=== PATIENT | female | born 2000 | race Caucasian/White ===

== ENCOUNTER 2022-03-27 07:00 | Emergency (ER) | payer MEDICAID, SELFPAY ==
--- NOTE | ~2022-03-27 | CT_ITS ---
EXAMINATION: CT abdomen pelvis wo con DATE: 03/27/2022 08:16 INDICATION: Right flank pain. Microhematuria. TECHNIQUE: Computed tomography (CT) of the abdomen and pelvis was performed without intravenous contr ast. Automated exposure control and iterative reconstruction technique were employed. The dose-length product was 179.64 mGy-cm. COMPARISON: CT abdomen and pelvis 03/03/2019 FINDINGS: The visualized portions of the lung bases are clear without pneumonia or pleural effusion. The heart size is normal. No pericardial effusion. The liver, gallbladder, spleen, pancreas, adrenal glands, and left kidney are normal. There is a 1 mm stone in right kidney. There is proximal right hy droureter. There is a 4 mm stone in right ureter where it crosses the iliac vessels. There are no dil ated loops of bowel. The appendix is normal. There are no pathologically enlarged lymph nodes. There is physiologic fluid in the pelvis. There is a 4.6 x 2.5 cm cyst in right adnexa, likely a follicular cyst. The bones are unremarkable. IMPRESSION: 1. 4 mm stone in mid right ureter with proximal right hydroureter. 2. 1 mm nonobstructing right kidney stone. 3. 4.6 cm cyst in right adnexa, likely a follicular cyst. Reviewed, dictated and finalized at location A.
[2022-03-27 07:00] VITALS: BP 130/79; PULSE 72; RESP 16; TEMP 36.3; O2SAT 99
--- NOTE | 2022-03-27 07:04 | ED.ABDPAIN ---
HPI - Abdominal Pain General Chief Complaint: Abdominal Pain Stated Complaint: ambulance Time Seen by Provider: 03/27/22 07:04 Source: patient Mode of arrival: ambulatory Limitations: no limitations History of Present Illness HPI narrative: 21-year-old female, A2, history of right kidney stone 2 years ago presents to the ER with a 5 hour history of -- right flank pain which radiates to the right groin. -- Nausea without any vomiting. No fever or chills. MD elicited complaint: flank pain Pertinent past history: kidney stones Onset (ago): hour(s) ( Started 5 hours ago) Pain Consistency: intermittent Location: R flank Severity: severe Pain scale (0-10): 6 Radiation: suprapubic Exacerbating factors: nothing Relieving factors: nothing Associated symptoms: denies other symptoms Related Data Date of Last Menstrual Period: 02/28/22 Patient : No Allergies Allergy/AdvReac Type Severity Reaction Status Date / Time No Known Allergies Allergy Unverified 04/10/19 13:26 Review of Systems Review of Systems: All systems reviewed & are unremarkable except as noted in HPI and below Constitutional: Constitutional: Reports as per HPI and Reports no additional constitutional complaints Eyes: Eyes: Reports as per HPI and Reports no additional eye complaints ENT: Reports system reviewed and no additional complaints, except as documented and Reports as per HPI Cardiovascular: Cardiovascular: Reports as per HPI and Reports no additional cardiovascular complaints Respiratory: Respiratory: Reports as per HPI and Reports no additional respiratory complaints Gastrointestinal: Gastrointestinal: Reports as per HPI, Reports no additional gastrointestinal complaints, Reports abdominal pain and Reports nausea Genitourinary: Genitourinary: Reports no additional female genitourinary complaints and Reports as per HPI Musculoskeletal: Musculoskeletal: Reports no additional musculoskeletal complaints and Reports as per HPI Integumentary/Breasts: Skin/Breast: Reports system reviewed and no additional complaints, except as docu and Reports as per HPI Neurologic: Reports system reviewed and no additional complaints, except as documented and Reports as per HPI Psychiatric: Psychiatric: Reports no additional psychiatric complaints and Reports as per HPI Endocrine: Endocrine: Reports no additional endocrine complaints and Reports as per HPI Hematologic/Lymphatic: Hematologic/Lymphatic: Reports no additional hematologic/lymphatic complaints and Reports as per HPI Allergic/Immunologic: Allergic/Immunologic: Reports no additional allergic/immunologic complaints and Reports as per HPI ON LICENSE OF [facility] Past Medical History Medical History (Updated 03/27/22 @ 09:21 by Rolando Parra MD) Kidney stone Miscarriage Exam Const: General: healthy appearing Nutritional Appearance: well nourished Orientation/consciousness: patient oriented x3 Limitations: no limitations HENMT: Head: normal to inspection Ears: external ears normal General nose exam: Normal external nose present Face and sinus: normal facial exam Mouth: Yes Normal oral and palatal mucosa present Teeth and gingiva: dentition normal Throat: posterior oropharynx normal Eyes: Conjunctivae: conjunctivae normal Pupils: Equal, round and reactive pupils present EOM: EOMs intact bilaterally Neck: Neck: normal visual inspection Chest: Chest palpation & inspection: normal inspection of the chest Resp: Effort & Inspection: normal respiratory effort Auscultation: clear to auscultation bilaterally Cardio: Rate: regular rate Rhythm: regular rhythm GI: GI Palp: Yes Soft to palpation and Yes Tenderness to palpation present (GI) ( tenderness in right flank without any rigidity/rebound) Auscultation: normal bowel sounds Rectal Exam: normal sphincter tone : General: Yes bladder normal to palpation Back/Spine/Pelvis: Back: CVA tenderness Skin: General skin exam: normal color Rash
[2022-03-27 07:32] LABS: Basophils Absolute Auto 0.05 K/mm3 (0.00-0.10); Basophils Percent Auto 0.4 % (0.0-1.0); Eosinophils Absolute Auto 0.07 K/mm3 (0.02-0.50); Eosinophils Percent Auto 0.6 % (1.0-6.0); Hematocrit 44.2 % (35.0-49.0); Hemoglobin 15.2 g/dL (12.0-15.0); Immature Granulocyte Absolute 0.03 K/mm3 (0.00-0.00); Immature Granulocyte Percent A 0.3 % (0.0-0.0); Lymphocytes Absolute Auto 2.06 K/mm3 (1.10-4.50); Lymphocytes Percent Auto 17.9 % (18.0-42.0); Mean Corpuscular HGB Conc 34.4 g/dL (32.0-36.0); Mean Corpuscular Volume 87.4 fL (78.0-102.0); Mean Platelet Volume 10.8 fl (9.2-11.8); Monocytes Absolute Auto 0.79 K/mm3 (0.10-0.90); Monocytes Percent Auto 6.9 % (2.0-11.0); Neutrophils Absolute Auto 8.5 K/mm3 (1.7-7.2); Neutrophils Percent Auto 73.9 % (50.0-70.0); Platelet Count Result 238 K/mm3 (150-420); Red Blood Count 5.06 M/mm3 (4.20-5.40); Red Cell Distribution Width 11.7 % (11.6-14.4); White Blood Count 11.5 K/mm3 (4.8-10.8)
[2022-03-27 07:33] LABS: Add Urine Microscopic? YES; Appearance Urine Slightly Cloudy (Clear); Bilirubin Urine Negative (Negative); Blood Urine 3+ (Negative); Color Urine Yellow (Yellow); Glucose Urine UA Negative (Negative); Ketones Urine 1+ (Negative); Leukocyte Esterase Ur Negative (Negative); Nitrate Urine Negative (Negative); Protein Urine Negative (Negative); Specific Grav Ur >= 1.030 (1.010-1.020); Urobilinogen Urine 0.2 mg/dL (0.2-1.0)
[2022-03-27] MEDS: LACTATED RINGERS 1,000 ML 999 ML IV CONT (07:34)
[2022-03-27 07:37] LABS: Bacteria Urine Trace /hpf; RBC Urine >75 /hpf (0-2); Squamous Epithelial Cell Urine Few /hpf (Few); WBC Urine None seen /hpf (0-3)
[2022-03-27 07:38] LABS: Pregnancy On Board Control Positive; Urine Pregnancy Test Negative
[2022-03-27 07:45] LABS: Prothrombin Time 10.6 Seconds (9.50-12.10)
[2022-03-27 07:48] LABS: Alanine Aminotransferase 23 U/L (14-59); Alkaline Phosphatase 91 U/L (46-116); Anion Gap 12 mmol/L (8-16); Aspartate Amino Transferase 16 U/L (15-37); Bilirubin,Total 0.6 mg/dL (0.00-1.00); Blood Urea Nitrogen 14 mg/dL (7-18); Calcium 8.9 mg/dL (8.5-10.1); Carbon Dioxide 21 mmol/L (21-32); Chloride 104 mmol/L (98-108); Estimated CRCL calculation 89 ml/min; Estimated Glomerular Filt Rate > 60; Glucose 104 mg/dL (70-99); Lipase 48 U/L (73-393); Osmolality Calculated 284 mOsm/kg (285-295); Sodium 137 mmol/L (136-145); Total Protein 7.6 g/dL (6.4-8.2); Uric Acid 4.9 mg/dL (2.6-6.0)
[2022-03-27 07:53] LABS: Lactic Acid Reflex 0.7 mmol/L (0.4-2.0)
--- NOTE | 2022-03-27 08:08 | PC.NURSE ---
PT IS TALKING ON CELL PHONE WITHOUT DISTRESS, IS ON HER WAY TO CT AT THIS TIME. IVF INFUSING ORDERED WITHOUT DIFFICULTY. WILL CONTINUE TO MONITOR.
--- NOTE | 2022-03-27 08:30 | PC.NURSE ---
PT HAS RETURNED FROM CT, DENIES ANY NEEDS OR COMPLAINTS AT THIS TIME. WILL CONTINUE TO MONITOR.
[2022-03-27 08:36] VITALS: BP 107/56; PULSE 70; RESP 16; O2SAT 98
--- NOTE | 2022-03-27 09:03 | PC.NURSE ---
PT UP TO RR WITHOUT DIFFICULTY, REPORTS PAIN IS COMING BACK. WILL CONTINUE TO MONITOR.
[2022-03-27] MEDS: TAMSULOSIN HCL 0.4 MG CAPSULE PO (09:20)
[2022-03-27] MEDS: ONDANSETRON INJ 4 MG/2 ML VIAL IV PUSH (09:20)
[2022-03-27] MEDS: MORPHINE SULFATE (*CRX) 2 MG/ML INJ IV PUSH (09:21)
[2022-03-27 09:40] VITALS: BP 108/62; PULSE 68; RESP 16; O2SAT 99
== END 2022-03-27 09:40 | disposition home or self-care (01) ==
PROVIDERS: Emergency Provider Internal Medicine Critical Care Medicine
DX: N20.0 Calculus of kidney (principal)
CPT/HCPCS: 36415; 74176; 80053; 81001; 81025; 83605; 83690; 84550; 85025; 85610; 96361; 96374; 96375; 99284; A9270; J2270; J2405; J7120

== ENCOUNTER 2022-04-04 09:19 | Emergency (ER) | payer MEDICAID, SELFPAY ==
--- NOTE | ~2022-04-04 | XR_ITS ---
EXAMINATION: XR abdomen/kub 1V DATE: 04/04/2022 10:35 INDICATION: Right flank pain. TECHNIQUE: A supine view of the abdomen was obtained. COMPARISON: CT abdomen and pelvis 04/04/2022 FINDINGS: There are no dilated loops of bowel. There is a 3 mm stone in distal right ureter. IMPRESSION: 1. 3 mm stone in distal right ureter. Reviewed, dictated and finalized at location A.
--- NOTE | ~2022-04-04 | CT_ITS ---
EXAMINATION: CT abdomen pelvis w con DATE: 04/04/2022 10:36 INDICATION: Right flank pain. TECHNIQUE: Computed tomography (CT) of the abdomen and pelvis was performed with 100 mL Omnipaque 350 intravenous contrast. Automated exposure control and iterative reconstruction technique were employe d. The dose-length product was 368.24 mGy-cm. COMPARISON: CT abdomen and pelvis 03/27/2022 FINDINGS: The visualized portions of the lung bases are clear without pneumonia or pleural effusion. The heart size is normal. No pericardial effusion. The liver, gallbladder, spleen, pancreas, adrenal glands, and left kidney are normal. There is a delayed right-sided contrast nephrogram. There is a 1 mm stone in right kidney. There is mild right hydronephrosis and hydroureter to the level of a 3 mm s tone in distal right ureter. There is a 4.8 cm cyst in right adnexa, likely a follicular cyst. There are no dilated loops of bowel. The appendix is normal. There are no pathologically enlarged lymph nod es. There is no free intraperitoneal fluid. The bones are unremarkable. IMPRESSION: 1. 3 mm stone in distal right ureter with mild right hydronephrosis and hydroureter. 2. 1 mm nonobstructing right kidney stone. 3. 4.8 cm cyst in right adnexa, likely a follicular cyst. Reviewed, dictated and finalized at location A. IMPRESSION: 1. 3 mm stone in distal right ureter with mild right hydronephrosis and hydrour eter. 2. 1 mm nonobstructing right kidney stone. 3. 4.8 cm cyst in right adnexa, likely a follicular cyst.
[2022-04-04 09:25] VITALS: BP 132/84; PULSE 56; RESP 16; TEMP 36.7; O2SAT 98
--- NOTE | 2022-04-04 09:37 | ED.ABDPAIN ---
HPI - Abdominal Pain General Chief Complaint: Abdominal Pain Stated Complaint: flank pain, abdominal pain History of Present Illness HPI narrative: Pt presents with right flank and RLQ abdominal pain for about 9 hours. Pt diagnosed recently with kidney stone but had improved. Pt has not followed up with urology. Pt denies fever. Pt does have some urinary frequency. Pt denies vomiting or fever. Related Data Allergies Allergy/AdvReac Type Severity Reaction Status Date / Time No Known Allergies Allergy Verified 04/04/22 09:33 Review of Systems Review of Systems: All systems reviewed & are unremarkable except as noted in HPI and below PMFSH Past Medical History Medical History (Updated 04/04/22 @ 11:12 by David Pruitt III, ) Kidney stone Miscarriage Exam Const: General: healthy appearing Nutritional Appearance: well nourished Orientation/consciousness: patient oriented x3 Limitations: no limitations HENMT: Head: normal to inspection Mouth: Yes Normal oral and palatal mucosa present Eyes: Conjunctivae: conjunctivae normal EOM: EOMs intact bilaterally Neck: Neck: normal visual inspection Resp: Effort & Inspection: normal respiratory effort Auscultation: clear to auscultation bilaterally Cardio: Rate: regular rate Rhythm: regular rhythm GI: GI Palp: Yes Soft to palpation and Yes Tenderness to palpation present (GI) (right flank and RLQ) Auscultation: normal bowel sounds : General: Yes bladder normal to palpation Back/Spine/Pelvis: Back: CVA tenderness (right) Skin: General skin exam: normal color Rashes: no rashes Wounds: no wounds Neuro: General: patient oriented x3, moves all extremities, no meningeal signs, no focal motor deficits and CN's II-XI intact bilaterally Cranial nerves: Yes Nystagmus not present Speech: normal speech Gait exam (Neuro): Normal gait present Extrem: General: normal to inspection and no clubbing, cyanosis or edema Psych: Mental Status: mental status grossly normal Affect: normal affect Attitude: cooperative Course Vital Signs Vital signs: Vital Signs Temperature 98.0 F 04/04/22 09:25 Pulse Rate 56 L 04/04/22 09:25 Respiratory Rate 16 04/04/22 09:25 Blood Pressure 132/84 04/04/22 09:25 Pulse Oximetry 98 04/04/22 09:25 Oxygen Delivery Room Air 04/04/22 09:25 Temperature 98.0 F 04/04/22 11:40 Pulse Rate 60 04/04/22 11:40 Respiratory Rate 16 04/04/22 11:40 Blood Pressure 122/64 04/04/22 11:40 Pulse Oximetry 99 04/04/22 11:40 Oxygen Delivery Room Air 04/04/22 11:40 MDM - Abdominal Pain Lab Data Result diagrams: 04/04/22 09:48 04/04/22 09:48 Labs: Lab Results 04/04/22 04/04/22 04/04/22 Range/Units 09:48 09:48 09:48 WBC 22.1 H* (4.8-10.8) K/mm3 RBC 5.15 (4.20-5.40) M/mm3 Hgb 15.3 H (12.0-15.0) g/dL Hct 44.6 (35.0-49.0) % MCV 86.6 (78.0-102.0) fL MCH 29.7 (27.0-31.0) pg MCHC 34.3 (32.0-36.0) g/dL RDW 11.6 (11.6-14.4) % Plt Count 264 (150-420) K/mm3 MPV 11.2 (9.2-11.8) fl Immature Gran % (Auto) Not Reportable Neut % (Auto) Not Reportable Lymph % (Auto) Not Reportable [place] % (Auto) Not Reportable Eos % (Auto) Not Reportable Baso % (Auto) Not Reportable Lymph # (Auto) Not Reportable [place] # (Auto) Not Reportable Eos # (Auto) Not Reportable Baso # (Auto) Not Reportable Abs Immat Gran (auto) Not Reportable Absolute Neuts (auto) Not Reportable Absolute Nucleated RBC Not Reportable Total Counted 100 Neutrophils % (Manual) 89 H (46-73) % Band Neutrophils % 0 (0-6) % Lymphocytes % (Manual) 6 L (18-44) % Monocytes % (Manual) 5 (3-9) % Nucleated RBC % Not Reportable Abs Neuts (Manual) 19.66 H (1.7-7.2) K/mm3 Abs Lymphs (Manual) 1.32 (1.1-4.5) K/mm3 Abs Monocytes (Manual) 1.10 H (0.1-0.90) K/mm3 Platelet Estimate Ad
[2022-04-04] MEDS: SODIUM CHLORIDE 0.9% IV 1,000 ML 999 ML IV CONT (09:53)
[2022-04-04] MEDS: KETOROLAC 30 MG/ML VIAL (*BKC) IV PUSH (09:54)
[2022-04-04] MEDS: ONDANSETRON INJ 4 MG/2 ML VIAL IV PUSH (09:54)
[2022-04-04 09:57] LABS: Add Urine Microscopic? YES; Appearance Urine Clear (Clear); Bilirubin Urine Negative (Negative); Blood Urine 3+ (Negative); Color Urine Yellow (Yellow); Glucose Urine UA Negative (Negative); Hematocrit 44.6 % (35.0-49.0); Hemoglobin 15.3 g/dL (12.0-15.0); Ketones Urine Trace (Negative); Leukocyte Esterase Ur Negative LEU/UL (Negative); Mean Corpuscular HGB Conc 34.3 g/dL (32.0-36.0); Mean Corpuscular Hemoglobin 29.7 pg (27.0-31.0); Mean Corpuscular Volume 86.6 fL (78.0-102.0); Mean Platelet Volume 11.2 fl (9.2-11.8); Nitrate Urine Negative (Negative); Platelet Count Result 264 K/mm3 (150-420); Protein Urine 2+ (Negative); Red Blood Count 5.15 M/mm3 (4.20-5.40); Red Cell Distribution Width 11.6 % (11.6-14.4); Urobilinogen Urine 0.2 mg/dL (0.2-1.0); pH Urine 8.5 (5.0-8.0)
[2022-04-04 10:08] LABS: White Blood Count 22.1 K/mm3 (4.8-10.8)
[2022-04-04 10:12] LABS: Alanine Aminotransferase 30 U/L (14-59); Albumin Level 4.2 g/dL (3.4-5.0); Alkaline Phosphatase 94 U/L (46-116); Anion Gap 12 mmol/L (8-16); Aspartate Amino Transferase 19 U/L (15-37); Bilirubin,Total 0.7 mg/dL (0.00-1.00); Blood Urea Nitrogen 16 mg/dL (7-18); Calcium 9.4 mg/dL (8.5-10.1); Carbon Dioxide 23 mmol/L (21-32); Chloride 105 mmol/L (98-108); Estimated CRCL calculation 55 ml/min; Estimated Glomerular Filt Rate 51; Glucose 123 mg/dL (70-99); Osmolality Calculated 292 mOsm/kg (285-295); Potassium 3.9 mmol/L (3.5-5.1); Sodium 140 mmol/L (136-145); Total Protein 7.7 g/dL (6.4-8.2)
[2022-04-04 10:13] LABS: Bacteria Urine 1+ /hpf; RBC Urine 21-50 /hpf (0-2); Squamous Epithelial Cell Urine Few /hpf (Few)
[2022-04-04 10:19] LABS: Band Neutrophils Percent 0 % (0-6); Lymphocytes Absolute Manual 1.32 K/mm3 (1.1-4.5); Lymphocytes Percent Manual 6 % (18-44); Monocytes Percent Manual 5 % (3-9); Neutrophils Absolute Manual 19.66 K/mm3 (1.7-7.2); Neutrophils Percent Manual 89 % (46-73); Platelet Estimate Adequate (Adequate); Total Cells Counted 100
[2022-04-04 10:19] LABS: Pregnancy On Board Control Positive; Urine Pregnancy Test Negative
--- NOTE | 2022-04-04 10:24 | PC.NURSE ---
PT IN CT AT THIS TIME. WILL CONTINUE TO MONITOR.
[2022-04-04 10:40] VITALS: BP 114/66; PULSE 70; RESP 16; O2SAT 100
--- NOTE | 2022-04-04 10:41 | PC.NURSE ---
PT HAS RETURNED FROM CT, REPORTS PAIN HAS GREATLY IMPROVED, DOES REMAIN. PT IS CALM, WARM BLANKET PROVIDED. PT IS WATCHING TV AT THIS TIME. WILL CONTINUE TO MONITOR.
[2022-04-04 10:45] VITALS: BP 125/73; PULSE 66; RESP 16; O2SAT 99
[2022-04-04 11:15] VITALS: BP 121/78; PULSE 62; RESP 16; O2SAT 98
--- NOTE | 2022-04-04 11:15 | PC.NURSE ---
rn contacted urology for consult, will call back in operating room at this time.
[2022-04-04 11:40] VITALS: BP 122/64; PULSE 60; RESP 16; TEMP 36.7; O2SAT 99
--- NOTE | 2022-04-04 11:53 | PC.NURSE ---
1115 PT IS RESTING ON STRETCHER WATCHING TV. ERP NOTIFIED UROLOGY FOR PT FOLLOW UP. PT HAS CALLED FOR TRANSPORT HOME. NAD NOTED. VSS. WILL CONTINUE TO MONITOR.
== END 2022-04-04 11:40 | disposition home or self-care (01) ==
PROVIDERS: Emergency Provider Emergency Medicine
DX: N20.0 Calculus of kidney (principal)
CPT/HCPCS: 36415; 74018; 74177; 80053; 81001; 81025; 85025; 96361; 96374; 96375; 99284; J1885; J2405; J7030; Q9967

== ENCOUNTER 2022-04-07 18:10 | Emergency (ER) | payer MEDICAID, SELFPAY ==
--- NOTE | ~2022-04-07 | CT_ITS ---
EXAMINATION: CT abdomen pelvis w con DATE: 04/07/2022 19:41 INDICATION: Right flank pain. TECHNIQUE: Computed tomography (CT) of the abdomen and pelvis was performed with 100 mL Omnipaque 350 intravenous contrast. Automated exposure control and iterative reconstruction technique were employe d. The dose-length product was 301.88 mGy-cm. COMPARISON: CT abdomen and pelvis 04/04/2022 FINDINGS: The visualized portions of the lung bases are clear without pneumonia or pleural effusion. The heart size is normal. No pericardial effusion. The liver, gallbladder, spleen, pancreas, adrenal glands, and left kidney are normal. There is a delayed right-sided contrast nephrogram. There is mild right hydronephrosis and hydroureter. There is a 3 mm stone in distal right ureter. There is a 4.8 c m cyst in right adnexa. There is physiologic fluid in the pelvis. There are no dilated loops of bowel . The appendix is normal. There are no pathologically enlarged lymph nodes. The bones are unremarkabl e. IMPRESSION: 1. 3 mm stone in distal right ureter with mild right hydronephrosis and hydroureter. 2. 4.8 cm cyst in right adnexa, likely a follicular cyst. Reviewed, dictated and finalized at location A. IMPRESSION: 1. 3 mm stone in distal right ureter with mild right hydronephrosis and hydrour eter. 2. 4.8 cm cyst in right adnexa, likely a follicular cyst.
[2022-04-07 18:15] VITALS: BP 142/88; PULSE 56; RESP 20; TEMP 37; O2SAT 97
--- NOTE | 2022-04-07 18:27 | ED.FEMALEGU ---
HPI - Female Genitourinary General Chief complaint: Urogenital-Female Stated complaint: kidney stones Source: patient Mode of arrival: ambulatory Limitations: no limitations History of Present Illness HPI Narrative: 21 year old female returns to the Emergency Department complaining of severe right flank pain. Patient was here 03/27 and 04/04 for same. She was diagnosed with right ureteral stone 03/27. Has not followed up with Urology. States I can't afford it. elicited complaint: flank pain Onset (ago): week(s) (2) Severity: severe Female Urogenital Radiation: R Flank Severity scale (1-10): >10 Quality of pain: sharp Consistency: constant Vaginal discharge: none Exacerbating factors: none Relieving factors: none Associated symptoms: denies other symptoms Treatment prior to arrival: other (seen in ED twice and given analgesic Rx) Related Data Allergies Allergy/AdvReac Type Severity Reaction Status Date / Time No Known Allergies Allergy Verified 04/04/22 09:33 Review of Systems Review of Systems: All systems reviewed & are unremarkable except as noted in HPI and below Constitutional: Constitutional: Reports as per HPI, Reports no additional constitutional complaints and Denies chills Eyes: Eyes: Reports as per HPI and Reports no additional eye complaints ENT: Reports system reviewed and no additional complaints, except as documented and Reports as per HPI Cardiovascular: Cardiovascular: Reports as per HPI, Reports no additional cardiovascular complaints and Denies chest pain Respiratory: Respiratory: Reports as per HPI, Reports no additional respiratory complaints and Denies dyspnea Gastrointestinal: Gastrointestinal: Reports as per HPI, Reports no additional gastrointestinal complaints, Reports abdominal pain, Reports constipation, Denies diarrhea and Reports nausea Genitourinary: Genitourinary: Reports no additional female genitourinary complaints, Reports as per HPI and Reports flank pain Musculoskeletal: Musculoskeletal: Reports no additional musculoskeletal complaints, Reports as per HPI and Reports back pain Integumentary/Breasts: Skin/Breast: Reports system reviewed and no additional complaints, except as docu and Reports as per HPI Neurologic: Reports system reviewed and no additional complaints, except as documented, Reports as per HPI, Denies dizziness and Denies syncope Psychiatric: Psychiatric: Reports no additional psychiatric complaints and Reports as per HPI Endocrine: Endocrine: Reports no additional endocrine complaints and Reports as per HPI Hematologic/Lymphatic: Hematologic/Lymphatic: Reports no additional hematologic/lymphatic complaints and Reports as per HPI Allergic/Immunologic: Allergic/Immunologic: Reports no additional allergic/immunologic complaints and Reports as per [facility] Past Medical History Medical History Kidney stone Miscarriage Exam Const: General: healthy appearing; No no acute distress (acute distress) Nutritional Appearance: well nourished Orientation/consciousness: patient oriented x3 Limitations: no limitations HENMT: Head: normal to inspection Ears: external ears normal General nose exam: Normal external nose present Face and sinus: normal facial exam Mouth: Yes Normal oral and palatal mucosa present Eyes: Conjunctivae: conjunctivae normal Pupils: Equal, round and reactive pupils present EOM: EOMs intact bilaterally Direct Ophthalmoscopy: no photophobia Neck: Neck: normal visual inspection Chest: Chest palpation & inspection: normal inspection of the chest Resp: Effort & Inspection: normal respiratory effort Auscultation: clear to auscultation bilaterally Cardio: Rate: regular rate Rhythm: regular rhythm Heart sounds: Murmur heart sound present GI: Inspection: non-distended GI Palp: Yes Soft to palpation, Yes Tenderness to palpation present (GI), No Guarding due to palpation present (GI) a
[2022-04-07] MEDS: SODIUM CHLORIDE 0.9% IV 1,000 ML 999 ML IV CONT (18:44)
[2022-04-07] MEDS: ONDANSETRON INJ 4 MG/2 ML VIAL IV PUSH (18:45)
[2022-04-07] MEDS: fentaNYL CITRATE INJ (*CRX) 100 MCG/2 ML VIAL 50 MCG IV PUSH ×2 (18:47→19:44)
[2022-04-07 19:00] LABS: Basophils Absolute Auto 0.06 K/mm3 (0.00-0.10); Basophils Percent Auto 0.3 % (0.0-1.0); Eosinophils Absolute Auto 0.03 K/mm3 (0.02-0.50); Eosinophils Percent Auto 0.2 % (1.0-6.0); Hematocrit 42.9 % (35.0-49.0); Hemoglobin 14.6 g/dL (12.0-15.0); Immature Granulocyte Absolute 0.07 K/mm3 (0.00-0.00); Immature Granulocyte Percent A 0.4 % (0.0-0.0); Lymphocytes Absolute Auto 1.17 K/mm3 (1.10-4.50); Lymphocytes Percent Auto 6.2 % (18.0-42.0); Mean Corpuscular Volume 88.3 fL (78.0-102.0); Mean Platelet Volume 11.2 fl (9.2-11.8); Monocytes Absolute Auto 1.21 K/mm3 (0.10-0.90); Monocytes Percent Auto 6.4 % (2.0-11.0); Neutrophils Absolute Auto 16.2 K/mm3 (1.7-7.2); Neutrophils Percent Auto 86.5 % (50.0-70.0); Platelet Count Result 226 K/mm3 (150-420); Red Blood Count 4.86 M/mm3 (4.20-5.40); Red Cell Distribution Width 11.4 % (11.6-14.4); White Blood Count 18.8 K/mm3 (4.8-10.8)
--- NOTE | 2022-04-07 19:00 | PC.NURSE ---
report to CHARAN villareal, no questions or concerns at this time.
[2022-04-07 19:03] LABS: Appearance Urine Clear (Clear); Bilirubin Urine Negative (Negative); Color Urine Light Yellow (Yellow); Glucose Urine UA Negative (Negative); Ketones Urine Negative (Negative); Leukocyte Esterase Ur Negative LEU/UL (Negative); Nitrate Urine Negative (Negative); Protein Urine Negative (Negative); Specific Grav Ur 1.025 (1.010-1.020); Urobilinogen Urine 0.2 mg/dL (0.2-1.0)
[2022-04-07 19:09] LABS: Add Urine Microscopic? YES; Bacteria Urine 1+ /hpf; Blood Urine Trace-Intact (Negative); Mucus Urine Rare /lpf; Squamous Epithelial Cell Urine Few /hpf (Few); WBC Urine 0-3 /hpf (0-3)
[2022-04-07 19:13] LABS: SPREG INTERNAL CONTROL Positive; Serum Qual hCG Negative
[2022-04-07 19:18] LABS: Alanine Aminotransferase 21 U/L (14-59); Alkaline Phosphatase 77 U/L (46-116); Anion Gap 8 mmol/L (8-16); Aspartate Amino Transferase 13 U/L (15-37); Bilirubin,Total 0.5 mg/dL (0.00-1.00); Blood Urea Nitrogen 14 mg/dL (7-18); Calcium 8.9 mg/dL (8.5-10.1); Carbon Dioxide 25 mmol/L (21-32); Chloride 107 mmol/L (98-108); Estimated CRCL calculation 54 ml/min; Estimated Glomerular Filt Rate 52; Glucose 99 mg/dL (70-99); Osmolality Calculated 290 mOsm/kg (285-295); Potassium 3.9 mmol/L (3.5-5.1); Sodium 140 mmol/L (136-145)
[2022-04-07 19:26] LABS: Lactic Acid Reflex 1.3 mmol/L (0.4-2.0)
--- NOTE | 2022-04-07 20:23 | PC.NURSE ---
[facility] called for possible transfer, Spoke with tao dempsey, said will return
[2022-04-07] MEDS: KETOROLAC 30 MG/ML VIAL (*BKC) IV PUSH (20:39)
--- NOTE | 2022-04-07 21:13 | PC.NURSE ---
pt assigned bed [id number] at [facility], nurse montelongo
[2022-04-07 21:32] VITALS: BP 116/71; PULSE 57; RESP 18; TEMP 36.7; O2SAT 97
--- NOTE | 2022-04-07 21:39 | PC.NURSE ---
[facility] called to transfer
== END 2022-04-07 22:06 | disposition short-term general hospital (02) ==
PROVIDERS: Emergency Provider Emergency Medicine
DX: N20.0 Calculus of kidney (principal); N23 Unspecified renal colic; D72.829 Elevated white blood cell count, unspecified
CPT/HCPCS: 36415; 74177; 80053; 81001; 83605; 84703; 85025; 96361; 96374; 96375; 96376; 99285; J1885; J2405; J3010; J7030; Q9967

== ENCOUNTER 2022-04-07 22:33 | Observation (INO) | payer MEDICAID, SELFPAY ==
--- NOTE | ~2022-04-07 | XR_ITS ---
XR stent kub - surgery Clinical information: Right ureteral stone extraction TECHNIQUE: Fluoroscopy used during right stone extraction performed by [Zach Neal MD] o n 04/14/2022. 10 seconds of fluoroscopy with 2 fluoroscopic images captured. FINDINGS: Correlate with procedure note. A guidewire and catheter are visualized in the right ureter . Visualized bowel gas pattern is nonobstructive. IMPRESSION: Fluoroscopy used during right ureteral stone extraction. Reviewed, dictated and finalized at location A.
--- NOTE | 2022-04-07 23:13 | PM.IMHP ---
H&P: HPI History of Present Illness Date/Time: 04/07/22 23:13 Chief Complaint: Right flank pain Narrative: Patient is a 21-year-old female past medical history of ovarian cyst and recurrent kidney stones with complaints of right flank pain. Patient started developing right flank pain on 03/27/2022 in found to have a right ureteral stone. she was sent home with pain control. patient failed to follow-up with her urology, and made repeat ER visit on 04/04 for kidney stone, sent home again with pain control. patient has no family history of kidney stones, no medications, states she drinks plenty of water. Type of previous kidney stones unknown. Patient now presented on 04/07/2022 in the ED at [facility] with right flank pain and found to have 3 mm kidney stone distal right ureter with mild right hydronephrosis and hydroureter. Incidental finding of 4.8 cm right adnexal follicular cyst. patient transferred to [facility] for urology coverage. patient being admitted for observation for right nephrolithiasis with hydronephrosis. Review of Systems Review of Systems: Constitutional: No Fever, No Chills, No Night Sweats, No Fatigue, No Malaise ENT/Mouth: No Hearing Changes, No Ear Pain, No Nasal Congestion, No Sinus Pain, No Hoarseness, No sore throat, No Rhinorrhea, No Swallowing Difficulty Eyes: No Eye Pain, No Redness, No Vision Changes Cardiovascular: No Chest Pain, No Palpitations, No Dyspnea on Exertion, No Orthopnea, No Claudication, No Edema Respiratory: No Cough, No Sputum, No Wheezing, No Shortness of Breath Gastrointestinal: No Nausea, No Vomiting, No Diarrhea, No Constipation, No Abdominal Pain, No Heartburn, No Hematochezia, No Melena Genitourinary: No Dysuria, No Urinary Frequency, No Hematuria, No Urinary Incontinence, No Urgency. endorses right flank pain Musculoskeletal: No Arthralgias, No Myalgias, No Joint Swelling, No Joint Stiffness, No Back Pain Skin: No Skin Lesions, No Pruritis, No Hair Changes Neuro: No Weakness, No Numbness, No Paresthesias, No Loss of Consciousness, No Syncope, No Dizziness, No Headache Psych: No Anxiety/Panic, No Depression, No Insomnia Heme: No Bruising, No Bleeding Lymph: No Adenopathy Endocrine: No Polyuria, No Polydipsia, No Temperature Intolerance PMFSH Past Medical History Medical History Kidney stone Miscarriage Social History Social History (Updated 04/07/22 @ 23:19 by Elvis Li DO) Social History: Independent Smoking status: Never smoker Alcohol intake: never Substance use: never Meds Home Medications and Allergies Home Medications Medication Instructions Recorded Confirmed Type No Home Medications 04/07/22 04/07/22 History Allergies Allergy/AdvReac Type Severity Reaction Status Date / Time No Known Allergies Allergy Verified 04/04/22 09:33 Exam Narrative: - GENERAL: pleasant woman in no acute distress. Well-nourished. - EYES: EOMI. Anicteric. - HENT: Moist mucous membranes. - LUNGS: Clear to auscultation bilaterally, no wheezing, rhonchi, or rales. - CARDIOVASCULAR: Regular rate and rhythm. No murmur. No JVD. - ABDOMEN: Soft, non-distended. No palpable masses. tender on deep palpation. - EXTREMITIES: No edema. Peripheral pulses 2+. Non-tender. - NEUROLOGIC: No focal neurological deficits. CN II-XII grossly intact. - PSYCHIATRIC: Awake, Alert and oriented x 3. Appropriate mood and affect. - SKIN: No rashes or lesions. Warm. - LYMPH: No cervical lymphadenopathy. H&P: Results Imaging CT scan - abdomen: Radiologist's impression: IMPRESSION: 1. 3 mm stone in distal right ureter with mild right hydronephrosis and hydroureter. 2. 4.8 cm cyst in right adnexa, likely a follicular cyst. Assessment and Plan Assessment and plan (1) Ureterolithiasis: Code(s): N20.1 - Calculus of ureter Status: Acute (2) Adnexal cyst: Code(s): N94
[2022-04-07] MEDS: SODIUM CHLORIDE 0.9% IV 1,000 ML 100 ML IV CONT (23:43)
[2022-04-07] MEDS: HYDROmorphone HCL INJ (*CRX) 1 MG/ML SYR IV PUSH (23:44)
[2022-04-07 23:55] LABS: INR 1.1; Prothrombin Time 14.1 Seconds (11.1-14.7)
[2022-04-08] VITALS (9 sets, daily range): BP systolic 94–124; BP diastolic 52–82; PULSE 41–86; RESP 15–20; TEMP 36.3–36.6; O2SAT 97–100; BMI 28.4
[2022-04-08] MEDS: HYDROmorphone HCL INJ (*CRX) 1 MG/ML SYR IV PUSH (02:50)
[2022-04-08] MEDS: ONDANSETRON INJ 4 MG/2 ML VIAL IV PUSH (02:50)
[2022-04-08 05:33] LABS: Basophils Absolute Auto 0.1 K/mm3 (0.0-0.1); Basophils Percent Auto 0.3 % (0.2-1.2); Eosinophils Percent Auto 0.2 % (0-4.4); Hematocrit 39.5 % (37.0-47.0); Hemoglobin 13.5 g/dL (12.0-15.0); Immature Granulocyte Absolute 0.05 K/mm3 (0.00-0.031); Immature Granulocyte Percent A 0.3 % (0-0.5); Lymphocytes Absolute Auto 2.24 K/mm3 (0.9-3.2); Lymphocytes Percent Auto 15.4 % (18.3-44.2); Mean Corpuscular HGB Conc 34.2 g/dl (32-36); Mean Corpuscular Hemoglobin 29.9 pg (26-34); Mean Corpuscular Volume 87.6 fl (80-100); Mean Platelet Volume 11.1 fl (7.4-10.4); Neutrophils Absolute Auto 11.2 K/mm3 (1.3-6.7); Neutrophils Percent Auto 76.8 % (45.5-73.1); Platelet Count Result 209 k/mm3 (150-375); Red Blood Count 4.51 M/mm3 (4.2-5.4); Red Cell Distribution Width 11.6 % (11.5-14.5); White Blood Count 14.5 K/mm3 (4.5-10.0)
[2022-04-08 05:40] LABS: Anion Gap 2 mmol/L (8-16); Blood Urea Nitrogen 13 mg/dL (7-17); Calcium 8.3 mg/dL (8.4-10.2); Carbon Dioxide 27 mmol/L (22-30); Chloride 109 mmol/L (98-107); Estimated Glomerular Filt Rate > 60; Glucose 92 mg/dL (65-110); Potassium 3.9 mmol/L (3.4-5.0); Sodium 138 mmol/L (137-145)
--- NOTE | 2022-04-08 06:19 | WPDANESEPP ---
Anes - Eval Pre Procedure Date/Time: 04/08/22 06:19 Pre Op Diagnosis: kidney stone Patient Data Age: 21 Gender: F Height: Weight: Last Vital Signs Temp 36.5 C 04/08/22 04:00 Pulse 54 L 04/08/22 04:00 Resp 18 04/08/22 04:00 BP 111/61 04/08/22 04:00 Pulse Ox 100 04/08/22 04:00 O2 Del Method Room Air 04/07/22 22:46 Allergies Allergy/AdvReac Type Severity Reaction Status Date / Time No Known Allergies Allergy Verified 04/04/22 09:33 Home Medications Medication Instructions Recorded Confirmed Type No Home Medications 04/07/22 04/07/22 History Laboratory Tests 04/07/22 04/07/22 04/08/22 23:35 23:35 05:18 WBC 14.5 K/mm3 H K/mm3 (4.5-10.0) RBC 4.51 M/mm3 M/mm3 (4.2-5.4) Hgb 13.5 g/dL g/dL (12.0-15.0) Hct 39.5 % % (37.0-47.0) MCV 87.6 fl fl (80-100) MCH 29.9 pg pg (26-34) MCHC 34.2 g/dl g/dl (32-36) RDW 11.6 % % (11.5-14.5) Plt Count 209 k/mm3 k/mm3 (150-375) MPV 11.1 fl H fl (7.4-10.4) Immature Gran % (Auto) 0.3 % % (0-0.5) Neut % (Auto) 76.8 % H % (45.5-73.1) Lymph % (Auto) 15.4 % L % (18.3-44.2) [place] % (Auto) 7.0 % % (2.6-8.5) Eos % (Auto) 0.2 % % (0-4.4) Baso % (Auto) 0.3 % % (0.2-1.2) Lymph # (Auto) 2.24 K/mm3 K/mm3 (0.9-3.2) [place] # (Auto) 1.0 K/mm3 H K/mm3 (0.1-0.6) Eos # (Auto) 0.0 K/mm3 K/mm3 (0-0.3) Baso # (Auto) 0.1 K/mm3 K/mm3 (0.0-0.1) Abs Immat Gran (auto) 0.05 K/mm3 H K/mm3 (0.00-0.031) Absolute Neuts (auto) 11.2 K/mm3 H K/mm3 (1.3-6.7) Absolute Nucleated RBC 0.0 K/mm3 K/mm3 (0.0-0.012) Nucleated RBC % 0.0 % % (0.0-0.2) PT 14.1 Seconds Seconds (11.1-14.7) INR 1.1 Sodium Potassium Chloride Carbon Dioxide Anion Gap BUN Creatinine Estim Creat Clear Calc Estimated GFR Glucose Calcium Magnesium 2.0 mg/dL mg/dL (1.6-2.3) 04/08/22 05:19 WBC RBC Hgb Hct MCV MCH MCHC RDW Plt Count MPV Immature Gran % (Auto) Neut % (Auto) Lymph % (Auto) [place] % (Auto) Eos % (Auto) Baso % (Auto) Lymph # (Auto) [place] # (Auto) Eos # (Auto) Baso # (Auto) Abs Immat Gran (auto) Absolute Neuts (auto) Absolute Nucleated RBC Nucleated RBC % PT INR Sodium 138 mmol/L mmol/L (137-145) Potassium 3.9 mmol/L mmol/L (3.4-5.0) Chloride 109 mmol/L H mmol/L (98-107) Carbon Dioxide 27 mmol/L mmol/L (22-30) Anion Gap 2 mmol/L L mmol/L (8-16) BUN 13 mg/dL mg/dL (7-17) Creatinine 0.80 mg/dL mg/dL (0.7-1.0) Estim Creat Clear Calc Not Reportable Estimated GFR > 60 (59 - ) Glucose 92 mg/dL mg/dL (65-110) Calcium 8.3 mg/dL L mg/dL (8.4-10.2) Magnesium Patient hx anesthesia problems: none Family hx anesthesia problems: none Results Review: All pre-operative results and documents have been reviewed as part of the pre-operative evaluation. [facility] Past Medical History Medical History Kidney stone Miscarriage Social History Social History Social History: Independent Smoking packs per day: 0.1 Smoking cigarettes per day: 2.0 Years smoked: 11 Smoking pack-years: 1.10 Smoking status: Never smoker Tobacco type: cigarettes Alcohol intake: never Substance use: never Spiritual care concerns: No Exam Day of Procedure 04/08/22 06:19 Patient weight: obese Heart: regular rate and rhy
--- NOTE | 2022-04-08 07:05 | WPDURCON ---
Assessment and Plan Assessment and plan (1) Ureterolithiasis: Code(s): N20.1 - Calculus of ureter Status: Acute Plan 3 mm right distal ureteral calculus. Will plan cystoscopy with right ureteroscopy and right ureteral stone extraction. Patient is aware the risks include, limited to, ureteral injury with need for stent placement. Urology Consult Note HPI Date Seen: 04/08/22 Requesting Physician: Nia Carson PA-C Primary Care Provider: UNKNOWN,DOCTOR Consult Narrative Narrative: Valentino Yan is a 21 year old female, previously unknown to our practice, who has probably spontaneously passed 1 ureteral calculus in the past. With this stone, however she has had extensive difficulty that is required presentation to emergency department on 4 separate occasions. She was 1st a palpable left was very when she developed right flank pain with nausea and vomiting. The stone was diagnosed there. She tried a 2 week course of medical expulsive therapy without success. She was in the ER last night and stone with intractable pain, answer decision for admission with definitive intervention. Review of Systems Cardiovascular: Cardiovascular: Denies chest pain, Denies lightheadedness, Denies palpitations and Denies dyspnea Respiratory: Respiratory: Denies dyspnea Gastrointestinal: Gastrointestinal: Denies diarrhea, Denies nausea and Denies vomiting Genitourinary: Genitourinary: Denies hematuria and Denies dysuria Endocrine: Endocrine: Denies palpitations PMFSH Past Medical History Medical History Kidney stone Miscarriage Social History Social History Social History: Independent Smoking packs per day: 0.1 Smoking cigarettes per day: 2.0 Years smoked: 11 Smoking pack-years: 1.10 Smoking status: Never smoker Tobacco type: cigarettes Alcohol intake: never Substance use: never Spiritual care concerns: No Meds Home Medications and Allergies Home Medications Medication Instructions Recorded Confirmed Type No Home Medications 04/07/22 04/07/22 History Allergies Allergy/AdvReac Type Severity Reaction Status Date / Time No Known Allergies Allergy Verified 04/04/22 09:33 Vital Signs Vital Signs - 24 hr 04/07/22 22:46 04/08/22 00:00 04/08/22 04:00 Temperature 97.9 F 97.7 F Pulse Rate 55 L 54 L Respiratory Rate 18 18 Blood Pressure 120/64 111/61 Pulse Oximetry 99 100 Oxygen Delivery Room Air Exam Const: General: no acute distress Resp: Effort & Inspection: normal respiratory effort GI: Inspection: non-distended GI Palp: No abdominal tenderness and No Guarding due to palpation present (GI) Auscultation: normal bowel sounds Results Labs CBC & Chem 7: 04/08/22 05:18 04/08/22 05:19 Labs: Short CBC 04/08/22 Range/Units 05:18 WBC 14.5 H (4.5-10.0) K/mm3 Hgb 13.5 (12.0-15.0) g/dL Hct 39.5 (37.0-47.0) % Plt Count 209 (150-375) k/mm3 [facility] 04/08/22 05:19 Sodium 138 Potassium 3.9 Chloride 109 H Carbon Dioxide 27 BUN 13 Creatinine 0.80 Glucose 92 Calcium 8.3 L
--- NOTE | 2022-04-08 07:16 | WPDHPUPDATE1 ---
History and Physical Update Update Date/Time: 04/08/22 07:16 History and Physical has been reviewed, including an updated exam of the patient. There are NO changes in the patient's condition. Risks, benefits, and alternatives have been discussed and questions answered. Patient agrees to proceed with procedure.
--- NOTE | 2022-04-08 07:32 | WPDANESEPPF ---
Anes - Initial Pre Proc Eval Procedure: Operation Date: 04/08/22 07:30 Proposed Procedures p Cystoscopy with Stone Extraction - Zach Neal MD Date/Time: 04/08/22 07:32 Surgeon: Nia Carson PA-C Pre Op Diagnosis: kidney stone Patient Data Age: 21 Gender: F Height: 1.55 m Weight: 68.3 kg Last Vital Signs Temp 36.5 C 04/08/22 04:00 Pulse 54 L 04/08/22 04:00 Resp 18 04/08/22 04:00 BP 111/61 04/08/22 04:00 Pulse Ox 100 04/08/22 04:00 O2 Del Method Room Air 04/07/22 22:46 Allergies Allergy/AdvReac Type Severity Reaction Status Date / Time No Known Allergies Allergy Verified 04/04/22 09:33 Home Medications Medication Instructions Recorded Confirmed Type No Home Medications 04/07/22 04/07/22 History Laboratory Tests 04/07/22 04/07/22 04/08/22 23:35 23:35 05:18 WBC 14.5 K/mm3 H K/mm3 (4.5-10.0) RBC 4.51 M/mm3 M/mm3 (4.2-5.4) Hgb 13.5 g/dL g/dL (12.0-15.0) Hct 39.5 % % (37.0-47.0) MCV 87.6 fl fl (80-100) MCH 29.9 pg pg (26-34) MCHC 34.2 g/dl g/dl (32-36) RDW 11.6 % % (11.5-14.5) Plt Count 209 k/mm3 k/mm3 (150-375) MPV 11.1 fl H fl (7.4-10.4) Immature Gran % (Auto) 0.3 % % (0-0.5) Neut % (Auto) 76.8 % H % (45.5-73.1) Lymph % (Auto) 15.4 % L % (18.3-44.2) [place] % (Auto) 7.0 % % (2.6-8.5) Eos % (Auto) 0.2 % % (0-4.4) Baso % (Auto) 0.3 % % (0.2-1.2) Lymph # (Auto) 2.24 K/mm3 K/mm3 (0.9-3.2) [place] # (Auto) 1.0 K/mm3 H K/mm3 (0.1-0.6) Eos # (Auto) 0.0 K/mm3 K/mm3 (0-0.3) Baso # (Auto) 0.1 K/mm3 K/mm3 (0.0-0.1) Abs Immat Gran (auto) 0.05 K/mm3 H K/mm3 (0.00-0.031) Absolute Neuts (auto) 11.2 K/mm3 H K/mm3 (1.3-6.7) Absolute Nucleated RBC 0.0 K/mm3 K/mm3 (0.0-0.012) Nucleated RBC % 0.0 % % (0.0-0.2) PT 14.1 Seconds Seconds (11.1-14.7) INR 1.1 Sodium Potassium Chloride Carbon Dioxide Anion Gap BUN Creatinine Estim Creat Clear Calc Estimated GFR Glucose Calcium Magnesium 2.0 mg/dL mg/dL (1.6-2.3) 04/08/22 05:19 WBC RBC Hgb Hct MCV MCH MCHC RDW Plt Count MPV Immature Gran % (Auto) Neut % (Auto) Lymph % (Auto) [place] % (Auto) Eos % (Auto) Baso % (Auto) Lymph # (Auto) [place] # (Auto) Eos # (Auto) Baso # (Auto) Abs Immat Gran (auto) Absolute Neuts (auto) Absolute Nucleated RBC Nucleated RBC % PT INR Sodium 138 mmol/L mmol/L (137-145) Potassium 3.9 mmol/L mmol/L (3.4-5.0) Chloride 109 mmol/L H mmol/L (98-107) Carbon Dioxide 27 mmol/L mmol/L (22-30) Anion Gap 2 mmol/L L mmol/L (8-16) BUN 13 mg/dL mg/dL (7-17) Creatinine 0.80 mg/dL mg/dL (0.7-1.0) Estim Creat Clear Calc Not Reportable Estimated GFR > 60 (59 - ) Glucose 92 mg/dL mg/dL (65-110) Calcium 8.3 mg/dL L mg/dL (8.4-10.2) Magnesium Patient hx anesthesia problems: none Family hx anesthesia problems: none Results Review: All pre-operative results and documents have been reviewed as part of the pre-operative evaluation. PMFSH Past Medical History Medical History Kidney stone Miscarriage Social History Social History Social History: Independent Smoking packs per day: 0.1 Smoking cigarettes per day: 2.0 Years smoked: 11 Smoking pack-years: 1.10 Smoking status: Never smoker Tobacco type: ciga
[2022-04-08] MEDS: LIDOCAINE HCL 2% GEL UROJET 10 ML PKG MUCOUS MEM (07:40)
[2022-04-08] MEDS: ceFAZolin 2 GM/D5W 50 ML 2 GM/50 ML BAG IVPB (07:50)
--- NOTE | 2022-04-08 07:51 | W.PM.PROC2 ---
Procedure Note - Detailed Date of Procedure 04/08/22 Pre-op Diagnosis Right ureteral stone Post-op Diagnosis Same Procedure Performed Cystoscopy, right ureteroscopy with stone extraction Surgeon Zach Neal MD Description of Procedure The patient was brought to the operative suite where she is prepped and draped in a routine sterile fashion while in the dorsal lithotomy position after the uneventful induction of a general LMA anesthetic. A 19F rigid cystoscope was placed in the bladder. The patient had no evidence of urethral stricture or bladder neck contracture. The bladder mucosa was endoscopically normal without hyperemia or neoplasm. There was a single, orthotopic ureteral orifice bilaterally. A 0.035 glidewire was advanced into the right renal pelvis under fluoroscopy. The distal ureter was dilated with an 8F/10F ureteral dilator. Ureteroscopy was undertaken with a short, tapered, semi-rigid ureteroscope and the small 3mm right distal ureteral stone was extracted with ease using a 1.9F Escape disposable stone basket. Due to the ease of this manipulation I opted not to place a ureteral stent. The patient's bladder was emptied and was taken to the recovery room having tolerated this procedure well. Drains No Packing No Pathology Yes Condition Stable
[2022-04-08] MEDS: LACTATED RINGERS 1,000 ML 30 ML IV CONT (07:55)
[2022-04-08] MEDS: fentaNYL CITRATE INJ (*CRX) 100 MCG/2 ML VIAL 25 MCG IV PUSH ×3 (08:20→08:26)
--- NOTE | 2022-04-08 08:55 | PC.NURSE ---
Returned from OR. Report received from CHARAN Holliday.
[2022-04-08] MEDS: TAMSULOSIN HCL 0.4 MG CAPSULE PO (09:38)
[2022-04-08] MEDS: SODIUM CHLORIDE 0.9% IV 1,000 ML 100 ML IV CONT (09:39)
--- NOTE | 2022-04-08 09:52 | PM.DS ---
DS: Admitting Diagnosis Discharge Date 04/08/2022 Admitting Diagnosis Ureterolithiasis DS: Discharge Diagnosis Discharge Diagnosis (1) Ureterolithiasis: Code(s): N20.1 - Calculus of ureter Status: Acute Assessment and Plan: Patient transferred from outside facility for evaluation of right ureterolithiasis with mild hydronephrosis. CT of the abdomen/pelvis revealed 3 mm stone in the distal right ureter with mild hydronephrosis and hydroureter Seen in consultation by Urology Underwent cystoscopy with right ureteroscopy and stone extraction on 04/08/2022 Ureteral spasm postoperatively managed with Toradol and hyoscyamine Will follow-up with urology as an outpatient UA with trace blood, no findings suggestive of acute infection. She will continue p.o. Keflex for 3 days per Urology recommendations (2) Adnexal cyst: Code(s): N94.9 - Unspecified condition associated with female genital organs and menstrual cycle Status: Inactive Assessment and Plan: CT revealed 4.8 cm cyst in the right diagnosis of likely a follicular cyst Outpatient follow-up with Gynecology DS: Summary Hospital Course Hospital Course: Date of admission: 04/07/2022 Date of discharge: 04/08/2022 Valentino Yan is a 21-year-old female with a history of kidney stones who presented to outside hospital ER with complaints of severe right flank pain. On presentation, her white blood cell count was 18.8, creatinine 1.27, additional laboratory workup unremarkable. She was transferred to [facility] for further evaluation and management was seen in consultation by Urology. See above for further details. Patient underwent cystoscopy with stone extraction. She will follow-up with urology as an outpatient. Her white blood cell count improved. Creatinine normalized. Supportive care provided and she will continue analgesics on discharge as needed. Discussed with the patient worrisome signs and symptoms for which to return and she was educated on her medications. She was discharged in hemodynamically stable condition on 04/08/2022. Status at Discharge Functional status at discharge: independent ambulation Overall status at discharge: patient is progressing back to baseline Time Spent with Patient Time attestation: Total time spent providing and/or coordinating discharge services: 45 minutes Time spent: Greater than 30 minutes Exam Narrative: General: Thin, well-appearing 21-year-old female, sitting up in bed, appears uncomfortable, NARD Neuro: awake, alert and oriented x4, speech clear, no focal neuro deficits noted HEENMT: normocephalic, atraumatic, EOMI, sclerae anicteric Respiratory: clear to auscultation bilaterally, nonlabored breathing Cardio: regular rate, regular rhythm with S1-S2 Abdomen: nondistended, normoactive bowel sounds, soft, nontender to palpation : No CVA tenderness Extremities: no edema, erythema, or tenderness to palpation, DP pulses 2+ bilaterally Skin: no rashes or lesions, warm and dry Psych: appropriate mood and affect, judgment and insight intact DS: Data Data Completed and Pending Pending studies at discharge: Pending at discharge 04/08/22 07:42 Surgical [PTH] Routine Labs on day of discharge: Labs from last 24 hours 04/08/22 04/08/22 04/07/22 05:19 05:18 23:35 WBC 14.5 H RBC 4.51 Hgb 13.5 Hct 39.5 MCV 87.6 MCH 29.9 MCHC 34.2 RDW 11.6 Plt Count 209 MPV 11.1 H Immature Gran % (Auto) 0.3 Neut % (Auto) 76.8 H Lymph % (Auto) 15.[address] [place] % (Auto) 7.0 Eos % (Auto) 0.2 Baso % (Auto) 0.3 Lymph # (Auto) 2.24 [place] # (Auto) 1.0 H Eos # (Auto) 0.0 Baso # (Auto) 0.1 Abs Immat Gran (auto) 0.05 H Absolute Neuts (auto) 11.2 H Absolute Nucleated RBC 0.0 Nucleated RBC % 0.0 PT INR Sodium 138 Potassium 3.9 Chloride 109 H Carbon Dioxide 27 Anion Gap 2 L BUN 13 Creatin
[2022-04-08] MEDS: KETOROLAC 30 MG/ML VIAL (*BKC) IV PUSH (10:35)
== END 2022-04-08 14:49 | disposition home or self-care (01) ==
PROVIDERS: Urology; Admitting Provider Student in an Organized Health Care Education/Training Program; Visit Provider Physician Assistant
PROC: (CPT 52352; principal; 2022-04-08 07:30)
DX: N13.2 Hydronephrosis with renal and ureteral calculous obstruction (principal); N94.9 Unspecified condition associated with female genital organs and menstrual cycle; E66.9 Obesity, unspecified; Z68.28 Body mass index [BMI] 28.0-28.9, adult
CPT/HCPCS: 52352; 36415; 80048; 82365; 83735; 85025; 85610; 88300; 96374; 96375; A9270; C1769; G0378; J0690; J1170; J1885; J2250; J2405; J2704; J3010; J7030; J7120

== ENCOUNTER 2022-05-15 12:13 | Emergency (ER) | payer MEDICAID, SELFPAY ==
--- NOTE | ~2022-05-15 | US_ITS ---
EXAMINATION: US OB <=14 wk fetus w TV DATE: 05/15/2022 13:20 INDICATION: Possible miscarriage during first trimester TECHNIQUE: Real-time pelvic ultrasound utilizing both a transvaginal and transabdominal probe was pe rformed. The interpreting radiologist was not present for the study. COMPARISON: None. FINDINGS: The uterus measures 7.8 x 4.1 x 5.3 cm cm. There is an intrauterine gestational sac. A yolk sac and pole are identified. The crown rump length measures 2-3 mm, which correlates with an estimated gestational age of 6 weeks and 0 days. heart motion is identified measuring 100 beats per minut e (bpm) by M-mode Doppler. 6.0 x 2.7 x 5.3 cm septated cyst at the left adnexa. A smaller cystic right adnexal lesion has been p resent on multiple CT scans dating back to 03/03/2019. There is a 1.7 x 0.6 cm triangular hypoechoic p ossible soft tissue component along one side of the septation. The left ovary measures 2.3 x 1.7 x 2. 1 cm with a couple subcentimeter anechoic cysts/follicle. There is no free fluid in the pelvis. IMPRESSION: 1. Single living fetus with heart rate of 100 bpm. 2. Gestational age by ultrasound of 6 weeks 0 day(s) +/- 3 day(s) with ultrasound estimated date of delivery (KRISSY) of 01/08/2023. 3. 6.0 x 2.7 x 5.3 cm complex cystic right adnexal lesion with hypoechoic region of possible soft tis malina along a thin internal septation which raises concern for neoplasm, more likely benign given the c hronicity. Would consider follow-up MRI for further evaluation particularly following when intravenous contrast can be administered. Reviewed, dictated and finalized at location A. IMPRESSION: 1. Single living fetus with heart rate of 100 bpm. 2. Gestational age by ultrasound of 6 weeks 0 day(s) +/- 3 day(s) with ultraso und estimated date of delivery (KRISSY) of 01/08/2023. 3. 6.0 x 2.7 x 5.3 cm complex cystic right adnexal lesion with hypoechoic regio n of possible soft tissue along a thin internal septation which raises concern for neoplasm, more likely benign given the chronicity. Would consider follow-up MRI for further evaluation particularly following when intravenous c ontrast can be administered.
[2022-05-15 12:25] VITALS: BP 123/87; PULSE 60; RESP 16; TEMP 36.2; O2SAT 98
[2022-05-15 12:44] LABS: Basophils Absolute Auto 0.03 K/mm3 (0.00-0.10); Basophils Percent Auto 0.2 % (0.0-1.0); Eosinophils Absolute Auto 0.01 K/mm3 (0.02-0.50); Eosinophils Percent Auto 0.1 % (1.0-6.0); Hematocrit 42.3 % (35.0-49.0); Hemoglobin 14.9 g/dL (12.0-15.0); Immature Granulocyte Absolute 0.03 K/mm3 (0.00-0.00); Immature Granulocyte Percent A 0.2 % (0.0-0.0); Lymphocytes Absolute Auto 1.12 K/mm3 (1.10-4.50); Lymphocytes Percent Auto 8.4 % (18.0-42.0); Mean Corpuscular HGB Conc 35.2 g/dL (32.0-36.0); Mean Corpuscular Hemoglobin 29.8 pg (27.0-31.0); Mean Corpuscular Volume 84.6 fL (78.0-102.0); Mean Platelet Volume 10.9 fl (9.2-11.8); Monocytes Absolute Auto 0.73 K/mm3 (0.10-0.90); Monocytes Percent Auto 5.4 % (2.0-11.0); Neutrophils Absolute Auto 11.5 K/mm3 (1.7-7.2); Neutrophils Percent Auto 85.7 % (50.0-70.0); Platelet Count Result 245 K/mm3 (150-420); Red Cell Distribution Width 11.3 % (11.6-14.4); White Blood Count 13.4 K/mm3 (4.8-10.8)
[2022-05-15] MEDS: ONDANSETRON INJ 4 MG/2 ML VIAL IV PUSH (12:51)
[2022-05-15] MEDS: SODIUM CHLORIDE 0.9% IV 1,000 ML 30 ML IV CONT (12:51)
[2022-05-15 13:25] LABS: Alanine Aminotransferase 16 U/L (14-59); Albumin Level 4.1 g/dL (3.4-5.0); Alkaline Phosphatase 77 U/L (46-116); Anion Gap 12 mmol/L (8-16); Aspartate Amino Transferase 12 U/L (15-37); Bilirubin,Total 0.8 mg/dL (0.00-1.00); Blood Urea Nitrogen 10 mg/dL (7-18); Calcium 9.3 mg/dL (8.5-10.1); Carbon Dioxide 21 mmol/L (21-32); Chloride 103 mmol/L (98-108); Estimated Glomerular Filt Rate > 60; Glucose 91 mg/dL (70-99); Osmolality Calculated 281 mOsm/kg (285-295); Potassium 3.7 mmol/L (3.5-5.1); Sodium 136 mmol/L (136-145); Total Protein 7.4 g/dL (6.4-8.2)
[2022-05-15 13:32] LABS: Add Urine Microscopic? YES; Appearance Urine Clear (Clear); Bilirubin Urine 1+ (Negative); Blood Urine Negative (Negative); Color Urine Yellow (Yellow); Glucose Urine UA Negative (Negative); Ketones Urine 3+ (Negative); Leukocyte Esterase Ur Negative (Negative); Nitrate Urine Negative (Negative); Protein Urine Negative (Negative); Urobilinogen Urine 0.2 mg/dL (0.2-1.0); pH Urine 7.5 (5.0-8.0)
[2022-05-15 13:36] LABS: Bacteria Urine 1+ /hpf; RBC Urine 0-2 /hpf (0-2); Squamous Epithelial Cell Urine Few /hpf (Few); WBC Urine 0-3 /hpf (0-3)
--- NOTE | 2022-05-15 13:54 | ED.PREGNANCY ---
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 Complaint: abdominal pain Onset (ago): hour(s) Pain Consistency: now resolved Location: abdomen Severity: mild Quality: Cramping Radiation: pelvis Associated symptoms: nausea Related Data Allergies Allergy/AdvReac Type Severity Reaction Status Date / Time cephalexin Allergy Swelling Verified 05/15/22 12:31 of the Eye fentanyl Allergy Other Verified 05/15/22 12:31 Review of Systems Review of Systems: All systems reviewed & are unremarkable except as noted in HPI and below PMFSH Past Medical History Medical History Kidney stone Miscarriage Social History Social History Social History: Independent Smoking packs per day: 0.1 Smoking cigarettes per day: 2.0 Years smoked: 11 Smoking pack-years: 1.10 Smoking status: Never smoker Tobacco type: cigarettes Alcohol intake: never Substance use: never Spiritual care concerns: No Exam Const: General: healthy appearing Nutritional Appearance: well nourished Orientation/consciousness: patient oriented x3 Limitations: no limitations HENMT: Head: normal to inspection Ears: external ears normal General nose exam: Normal external nose present Face and sinus: normal facial exam Eyes: Conjunctivae: conjunctivae normal Pupils: Equal, round and reactive pupils present EOM: EOMs intact bilaterally Neck: Neck: normal visual inspection, no lymphadenopathy and no meningeal signs Chest: Chest palpation & inspection: normal inspection of the chest Resp: Effort & Inspection: normal respiratory effort Cardio: Rate: regular rate Rhythm: regular rhythm GI: GI Palp: Yes Soft to palpation Auscultation: normal bowel sounds : Speculum Exam - Cervix: normal appearance of the cervix Urinary Catheter: Urinary Catheter: patent and draining Back/Spine/Pelvis: Back: no CVA tenderness Skin: General skin exam: normal color Rashes: no rashes Wounds: no wounds Neuro: General: patient oriented x3 Cranial nerves: Yes Nystagmus not present Extrem: General: normal to inspection Psych: Mental Status: mental status grossly normal Affect: normal affect Course Course Emergency Course: Patient received IV fluids and patient received Zofran, patient's symptoms have improved pelvic exam showed a normal non dilated cervix, ultrasound was reviewed with patient patient has urinalysis reviewed which shows no acute urinary tract infection. Vital Signs Vital signs: Vital Signs Temperature 36.2 C L 05/15/22 12:25 Pulse Rate 60 05/15/22 12:25 Respiratory Rate 16 05/15/22 12:25 Blood Pressure 123/87 05/15/22 12:25 Pulse Oximetry 98 05/15/22 12:25 Oxygen Delivery Room Air 05/15/22 12:25 Temperature 36.2 C L 05/15/22 12:25 Pulse Rate 60 05/15/22 12:25 Respiratory Rate 16 05/15/22 12:25 Blood Pressure 123/87 05/15/22 12:25 Pulse Oximetry 98 05/15/22 12:25 Oxygen Delivery Room Air 05/15/22 12:25 MDM - OB/Uterine Contractions Lab Data Result diagrams: 05/15/22 12:40 05/15/22 12:40 Labs: Lab Results 05/15/22 05/15/22 05/15/22 Range/Units 12:40 12:40 13:22 WBC 13.4 H (4.8-10.8) K/mm3 RBC 5.00 (4.20-5.40) M/mm3 Hgb 14.9 (12.0-15.0) g/dL Hct 42.3 (35.0-49.0) % MCV 84.6 (78.0-102.0) fL MCH 29.8 (27.0-31.0) pg MCHC 35.2 (32.0-36.0) g/dL RDW 11.
[2022-05-15 14:15] VITALS: BP 110/61; PULSE 71; RESP 16; TEMP 36.6; O2SAT 98
== END 2022-05-15 14:16 | disposition home or self-care (01) ==
PROVIDERS: Emergency Provider Emergency Medicine
DX: R11.2 Nausea with vomiting, unspecified (principal); Z33.1 Pregnant state, incidental
CPT/HCPCS: 36415; 76801; 76817; 80053; 81001; 84702; 85025; 96361; 96374; 99284; J2405; J7030

== ENCOUNTER 2022-05-16 20:33 | Emergency (ER) | payer MEDICAID, SELFPAY ==
[2022-05-16 20:43] VITALS: BP 125/75; PULSE 61; RESP 20; TEMP 36.4; O2SAT 99
[2022-05-16 21:29] LABS: Basophils Absolute Auto 0.06 K/mm3 (0.00-0.10); Basophils Percent Auto 0.4 % (0.0-1.0); Eosinophils Absolute Auto 0.02 K/mm3 (0.02-0.50); Eosinophils Percent Auto 0.1 % (1.0-6.0); Hematocrit 42.3 % (35.0-49.0); Immature Granulocyte Absolute 0.08 K/mm3 (0.00-0.00); Immature Granulocyte Percent A 0.5 % (0.0-0.0); Lymphocytes Absolute Auto 0.99 K/mm3 (1.10-4.50); Lymphocytes Percent Auto 6.2 % (18.0-42.0); Mean Corpuscular HGB Conc 35.5 g/dL (32.0-36.0); Mean Corpuscular Volume 84.6 fL (78.0-102.0); Monocytes Absolute Auto 1.01 K/mm3 (0.10-0.90); Monocytes Percent Auto 6.3 % (2.0-11.0); Neutrophils Absolute Auto 13.8 K/mm3 (1.7-7.2); Neutrophils Percent Auto 86.5 % (50.0-70.0); Platelet Count Result 243 K/mm3 (150-420); Red Cell Distribution Width 11.2 % (11.6-14.4)
--- NOTE | 2022-05-16 21:37 | ED.NAVMDI ---
HPI - Nausea/Vomiting/Diarrhea General Chief complaint: Nausea/Vomiting/Diarrhea Stated complaint: vomiting blood Time Seen by Provider: 05/16/22 20:37 Source: RN notes reviewed Mode of arrival: ambulatory Limitations: no limitations History of Present Illness MD elicited complaint: nausea, vomiting and other (1 cupful of blood) Pertinent past history: other (9 weeks with minimal vaginal bleeding x 2 days. no uterine cramping) Onset (ago): day(s) Description of vomiting: blood-streaked Associated nausea: Yes Associated abdominal pain: No Pain scale (0-10): 0 Associated symptoms: nausea/vomiting Related Data Allergies Allergy/AdvReac Type Severity Reaction Status Date / Time cephalexin Allergy Swelling Verified 05/15/22 12:31 of the Eye fentanyl Allergy Other Verified 05/15/22 12:31 Review of Systems Review of Systems: All systems reviewed & are unremarkable except as noted in HPI and below Constitutional: Constitutional: Reports no additional constitutional complaints Eyes: Eyes: Reports no additional eye complaints ENT: Reports system reviewed and no additional complaints, except as documented Cardiovascular: Cardiovascular: Reports no additional cardiovascular complaints Respiratory: Respiratory: Reports no additional respiratory complaints Gastrointestinal: Gastrointestinal: Reports no additional gastrointestinal complaints, Reports nausea and Reports vomiting Genitourinary: Genitourinary: Reports no additional female genitourinary complaints Musculoskeletal: Musculoskeletal: Reports no additional musculoskeletal complaints Integumentary/Breasts: Skin/Breast: Reports system reviewed and no additional complaints, except as docu Neurologic: Reports system reviewed and no additional complaints, except as documented Psychiatric: Psychiatric: Reports no additional psychiatric complaints Endocrine: Endocrine: Reports no additional endocrine complaints Hematologic/Lymphatic: Hematologic/Lymphatic: Reports no additional hematologic/lymphatic complaints Allergic/Immunologic: Allergic/Immunologic: Reports no additional allergic/immunologic complaints PMFSH Past Medical History Medical History Hematemesis/vomiting blood Kidney stone Miscarriage Social History Social History Social History: Independent Smoking packs per day: 0.1 Smoking cigarettes per day: 2.0 Years smoked: 11 Smoking pack-years: 1.10 Smoking status: Never smoker Tobacco type: cigarettes Alcohol intake: never Substance use: never Spiritual care concerns: No Exam Const: General: no acute distress Nutritional Appearance: well nourished Orientation/consciousness: patient oriented x3 Limitations: no limitations HENMT: Head: normal to inspection Ears: external ears normal, TM's normal bilaterally and EAC's normal General nose exam: Normal external nose present and Normal nares present Face and sinus: normal facial exam and sinuses nontender Mouth: Yes Normal oral and palatal mucosa present and Yes moist mucous membranes Teeth and gingiva: dentition normal Throat: posterior oropharynx normal Other: no acute oropharyngeal bleeding seen. Eyes: Conjunctivae: conjunctivae normal Pupils: Equal, round and reactive pupils present EOM: EOMs intact bilaterally Neck: Neck: normal visual inspection, no lymphadenopathy and no meningeal signs Chest: Chest palpation & inspection: normal inspection of the chest Resp: Effort & Inspection: normal respiratory effort Auscultation: clear to auscultation bilaterally Cardio: Rate: regular rate Rhythm: regular rhythm GI: GI Palp: Yes Soft to palpation and Yes Tenderness to palpation present (GI) Auscultation: normal bowel sounds : General: Yes bladder normal to palpation and Yes no CVA tenderness Bimanual exam- vagina & uterus: bladder normal to pal
[2022-05-16] MEDS: ONDANSETRON INJ 4 MG/2 ML VIAL IV PUSH (21:46)
[2022-05-16] MEDS: SODIUM CHLORIDE 0.9% IV 2,000 ML 999 ML IV CONT (21:46)
[2022-05-16 22:00] LABS: Add Urine Microscopic? YES; Appearance Urine Slightly Cloudy (Clear); Bilirubin Urine 1+ (Negative); Blood Urine Negative (Negative); Color Urine Yellow (Yellow); Glucose Urine UA Negative (Negative); Ketones Urine 3+ (Negative); Leukocyte Esterase Ur Negative LEU/UL (Negative); Nitrate Urine Negative (Negative); Protein Urine 1+ (Negative); pH Urine 7.5 (5.0-8.0)
[2022-05-16 22:07] LABS: Alanine Aminotransferase 16 U/L (14-59); Albumin Level 4.3 g/dL (3.4-5.0); Alkaline Phosphatase 79 U/L (46-116); Anion Gap 11 mmol/L (8-16); Aspartate Amino Transferase 12 U/L (15-37); Blood Urea Nitrogen 10 mg/dL (7-18); Calcium 9.7 mg/dL (8.5-10.1); Carbon Dioxide 24 mmol/L (21-32); Chloride 101 mmol/L (98-108); Estimated Glomerular Filt Rate > 60; Glucose 110 mg/dL (70-99); Lipase 26 U/L (73-393); Osmolality Calculated 282 mOsm/kg (285-295); Potassium 3.3 mmol/L (3.5-5.1); Sodium 136 mmol/L (136-145); Total Protein 7.7 g/dL (6.4-8.2)
[2022-05-16 22:08] LABS: Amorphous Sediment Urine Heavy; Bacteria Urine 1+ /hpf; Mucus Urine Few /lpf; RBC Urine 0-2 /hpf (0-2); Squamous Epithelial Cell Urine Few /hpf (Few); WBC Urine 0-3 /hpf (0-3)
[2022-05-16 22:08] LABS: INR 1.1; Partial Thromboplastin Time 27.3 SEC (23.90-30.70); Prothrombin Time 11.9 Seconds (9.50-12.10)
[2022-05-16 22:33] LABS: Occult Blood Negative (Negative)
[2022-05-16 22:40] LABS: SARS-CoV-2 RNA PCR Negative (Negative)
[2022-05-16] MEDS: PROMETHAZINE HCL 25 MG/ML AMPUL IM (22:52)
[2022-05-16] MEDS: POTASSIUM CHLORIDE 20 MEQ TABLET PO (22:56)
[2022-05-16 23:04] VITALS: BP 115/64; PULSE 84; RESP 18; O2SAT 100
== END 2022-05-16 23:05 | disposition home or self-care (01) ==
PROVIDERS: Emergency Provider Emergency Medicine
DX: O21.0 Mild hyperemesis gravidarum (principal); N39.0 Urinary tract infection, site not specified; Z20.822 Contact with and (suspected) exposure to COVID-19
CPT/HCPCS: 36415; 80053; 81001; 82272; 83690; 84702; 85025; 85610; 85730; 86850; 86900; 86901; 87491; 87591; 96361; 96372; 96374; 99284; A9270; C9803; J2405; J2550; J7030; U0003; U0005

== ENCOUNTER 2022-05-17 13:29 | Outpatient (CLI) | payer MEDICAID, SELFPAY ==
--- NOTE | ~2022-05-17 | US_ITS ---
EXAMINATION: US OB <= 14 weeks fetus DATE: 05/17/2022 14:45 INDICATION: Threatened miscarriage. TECHNIQUE: Real-time transabdominal and transvaginal pelvic ultrasound was performed. COMPARISON: Ultrasound 05/15/2022 FINDINGS: TRANSABDOMINAL ULTRASOUND: The uterus measures 8.4 x 4.4 x 6.1 cm. TRANSVAGINAL ULTRASOUND: There is an intrauterine gestational sac. A yolk sac is identified. The fet al crown rump length measures 3 mm, which correlates with an estimated gestational age of 6 weeks and 0 day(s) (+/-) 4 day(s). heart motion is identified measuring 112 beats per minute (bpm) by M- mode Doppler. The right ovary measures 4.4 x 6.2 x 2.2 cm. There is a 4.4 cm cyst with septation in r ight ovary. The left ovary measures 2.0 x 1.6 x 2.5 cm. There is physiologic free fluid in the pelvis . IMPRESSION: 1. Single living intrauterine gestation with estimated date of delivery of 01/08/2023 based on the ul trasound from 05/15/22. 2. 4.4 cm cyst with septation in right ovary, likely benign. Reviewed, dictated and finalized at location A. IMPRESSION: 1. Single living intrauterine gestation with estimated date of delivery of 12/17 based on the ultrasound from 05/15/22. 2. 4.4 cm cyst with septation in right ovary, likely benign.
== END 2022-05-17 13:30 | disposition home or self-care (01) ==
PROVIDERS: Visit Provider Obstetrics & Gynecology
DX: O20.0 Threatened abortion (principal); Z3A.00 Weeks of gestation of pregnancy not specified; N83.201 Unspecified ovarian cyst, right side
CPT/HCPCS: 76801

== ENCOUNTER 2022-05-23 22:33 | Emergency (ER) | payer MEDICAID, SELFPAY ==
[2022-05-23] VITALS (10 sets, daily range): BP systolic 120–125; BP diastolic 73–82; PULSE 60–62; RESP 18; TEMP 36.4; O2SAT 95–100
--- NOTE | 2022-05-23 22:44 | ED.NAVMDI ---
HPI - Nausea/Vomiting/Diarrhea General Chief complaint: Nausea/Vomiting/Diarrhea Stated complaint: dizzy,dehydration Time Seen by Provider: 05/23/22 22:40 Source: patient and RN notes reviewed Mode of arrival: ambulatory Limitations: no limitations History of Present Illness HPI Narrative: Patient is currently 8-9 weeks . She was here 1 week ago for the same thing was unable to afford the medication. MD elicited complaint: nausea and vomiting Onset (ago): day(s) (2) Description of vomiting: food contents and bilious Associated nausea: Yes Associated abdominal pain: No Location of pain: none Exacerbating factors: eating Relieving factors: none Associated symptoms: denies other symptoms Related Data Home Medications Medication Instructions Recorded Confirmed No Home Medications 05/23/22 05/23/22 Allergies Allergy/AdvReac Type Severity Reaction Status Date / Time cephalexin Allergy Swelling Verified 05/15/22 12:31 of the Eye fentanyl Allergy Other Verified 05/15/22 12:31 Review of Systems Review of Systems: All systems reviewed & are unremarkable except as noted in HPI and below PMFSH Past Medical History Medical History Hematemesis/vomiting blood Kidney stone Miscarriage Social History Social History Social History: Independent Smoking packs per day: 0.1 Smoking cigarettes per day: 2.0 Years smoked: 11 Smoking pack-years: 1.10 Smoking status: Never smoker Tobacco type: cigarettes Alcohol intake: never Substance use: never Spiritual care concerns: No Exam Const: General: no acute distress, alert and ill appearing acutely Nutritional Appearance: well nourished Orientation/consciousness: patient oriented x3 Limitations: no limitations Other: Female tech in room during examination. HENMT: Head: normal to inspection Ears: external ears normal General nose exam: Normal external nose present Face and sinus: normal facial exam Eyes: Conjunctivae: conjunctivae normal Cornea: corneas normal Pupils: Equal, round and reactive pupils present EOM: EOMs intact bilaterally Neck: Neck: normal visual inspection Resp: Effort & Inspection: normal respiratory effort Auscultation: clear to auscultation bilaterally Cardio: Rate: regular rate Rhythm: regular rhythm GI: GI Palp: Yes Soft to palpation, Yes Tenderness to palpation present (GI) ( Mild generalized) and No Guarding due to palpation present (GI) Auscultation: normal bowel sounds Back/Spine/Pelvis: Cervical Spine: cervical ROM normal Thoracic/Lumbar Spine: thoraco-lumbar ROM normal Skin: General skin exam: normal color Rashes: no rashes Neuro: General: patient oriented x3, moves all extremities, no focal motor deficits and CN's II-XI intact bilaterally Speech: normal speech Gait exam (Neuro): Normal gait present Extrem: General: normal to inspection and no clubbing, cyanosis or edema Psych: Mental Status: mental status grossly normal Affect: normal affect Attitude: cooperative Course Course Emergency Course: patient received 2 L of normal saline, Phenergan 25 mg IM, then Zofran 4 mg IV. She feels better. 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 Vital Signs Vital signs: Vital Signs Pulse Oximetry 97 05/23/22 22:40 Temperature 36.4 C 05/23/22 22:42 Pulse Rate 78 05/24/22 00:00 Respiratory Rate 18 05/23/22 22:42 Blood Pressure 94/48 L 05/24/22 01:30 Pulse Oximetry 98 05/24/22 01:30 Oxygen Delivery Room Air 05/23/22 22:42 MDM - Nausea/Vomiting/Diarrhea Differential Diagnosis Differential diagnosis: Likely dehydration and other ( hyperemesis gravidarum) Lab Data Attestation: I reviewed the patient's lab results. Result diagrams: 05/23/22 23:05
--- NOTE | 2022-05-23 22:52 | PC.NURSE ---
Went in with DR CHAN to assist with examination on pt. Boyfriend was present in the room with pt.
[2022-05-23] MEDS: PROMETHAZINE HCL 25 MG/ML AMPUL IM (22:57)
[2022-05-23 23:08] LABS: Hematocrit 43.6 % (35.0-49.0); Hemoglobin 15.4 g/dL (12.0-15.0); Mean Corpuscular HGB Conc 35.3 g/dL (32.0-36.0); Mean Corpuscular Hemoglobin 30.4 pg (27.0-31.0); Mean Corpuscular Volume 86.2 fL (78.0-102.0); Platelet Count Result 232 K/mm3 (150-420); Red Blood Count 5.06 M/mm3 (4.20-5.40); Red Cell Distribution Width 11.3 % (11.6-14.4)
[2022-05-23 23:12] LABS: White Blood Count 20.7 K/mm3 (4.8-10.8)
[2022-05-23 23:22] LABS: Alanine Aminotransferase 29 U/L (14-59); Albumin Level 4.3 g/dL (3.4-5.0); Alkaline Phosphatase 78 U/L (46-116); Anion Gap 14 mmol/L (8-16); Aspartate Amino Transferase 16 U/L (15-37); Bilirubin,Total 0.6 mg/dL (0.00-1.00); Blood Urea Nitrogen 13 mg/dL (7-18); Calcium 9.7 mg/dL (8.5-10.1); Carbon Dioxide 21 mmol/L (21-32); Chloride 99 mmol/L (98-108); Estimated Glomerular Filt Rate > 60; Glucose 118 mg/dL (70-99); Magnesium 2.1 mg/dL (1.8-2.4); Osmolality Calculated 279 mOsm/kg (285-295); Potassium 3.4 mmol/L (3.5-5.1); Sodium 134 mmol/L (136-145); Total Protein 7.8 g/dL (6.4-8.2)
[2022-05-23] MEDS: SODIUM CHLORIDE 0.9% IV 1,000 ML 999 ML IV CONT (23:25)
[2022-05-23 23:29] LABS: Band Neutrophils Percent 0 % (0-6); Basophils Percent Manual 0 % (0-1); Eosinophils Percent Manual 0 % (1-6); Lymphocytes Absolute Manual 1.86 K/mm3 (1.1-4.5); Lymphocytes Percent Manual 9 % (18-44); Monocytes Absolute Manual 0.41 K/mm3 (0.1-0.90); Monocytes Percent Manual 2 % (3-9); Neutrophils Absolute Manual 18.42 K/mm3 (1.7-7.2); Neutrophils Percent Manual 89 % (46-73); Platelet Estimate Adequate (Adequate); Total Cells Counted 100
[2022-05-23 23:32] LABS: Lactic Acid Reflex 1.9 mmol/L (0.4-2.0)
[2022-05-24] VITALS (9 sets, daily range): BP systolic 94–112; BP diastolic 48–70; PULSE 78; O2SAT 98–100
[2022-05-24] MEDS: SODIUM CHLORIDE 0.9% IV 1,000 ML 999 ML IV CONT (00:02)
[2022-05-24] MEDS: ONDANSETRON INJ 4 MG/2 ML VIAL IV PUSH (00:37)
--- NOTE | 2022-05-25 09:34 | PCCCNOTE ---
Spoke to pt on phone about her being able to pay for meds. She states her mom gets paid tomorrow and she can get her meds then. Encouraged her to get Macrobid as soon as possible due to her elevated WBC. She states her nausea is much better today but when ED meds wear off then the nausea returns. [facility] reports that the Potassium is $6, Promehazine supp is $51 and Macrobid is $20.74. Informed pt as well of cost of meds, she is aware of [facility] and states that [facility] is helping pt apply for Medicaid.
--- NOTE | 2022-05-29 10:42 | PCCCNOTE ---
Care Coordination followed up with pt to check if she was able to potato picker medication from pharmacy. She states she had friend visit from [place] and has not yet been able to potato picker meds. She plans to pick them up today and states her mom is paying for meds.
== END 2022-05-24 01:36 | disposition home or self-care (01) ==
PROVIDERS: Emergency Provider Emergency Medicine
DX: O21.0 Mild hyperemesis gravidarum (principal); E86.0 Dehydration
CPT/HCPCS: 36415; 80053; 83605; 83735; 85025; 96361; 96372; 96374; 99284; J2405; J2550; J7030

== ENCOUNTER 2022-06-22 18:02 | Emergency (ER) | payer MEDICAID, SELFPAY ==
[2022-06-22 18:24] VITALS: BP 121/68; PULSE 84; RESP 16; TEMP 36.3; O2SAT 98
--- NOTE | 2022-06-22 18:30 | ED.FEMALEGU ---
HPI - Female Genitourinary General Chief complaint: Urogenital-Female Stated complaint: Possible UTI 12 weeks Time Seen by Provider: 06/22/22 18:04 Source: patient Mode of arrival: ambulatory Limitations: no limitations History of Present Illness HPI Narrative: this is a 21-year-old female with a that is 11 weeks and saw her spring inspector earlier today was doing well, was seen here late April and early May was prescribed antibiotics and patient states that she did not take it because she could not afford the medication currently she has insurance and medication is reinstated at her local pharmacy. She is having burning upon urination he give her a g of Tylenol. Otherwise no fever chills no flank pain no nausea vomiting no abdominal pain and there is some dysuria frequency and burning. MD elicited complaint: UTI Onset (ago): week(s) Severity: moderate Female Urogenital Radiation: Non-Radiating Severity scale (1-10): 6 Quality of pain: dull and burning Consistency: constant Vaginal bleeding: none Urinary symptoms: Dysuria, Urgency and Frequency Related Data Home Medications Medication Instructions Recorded Confirmed No Home Medications 05/23/22 05/23/22 Allergies Allergy/AdvReac Type Severity Reaction Status Date / Time cephalexin Allergy Swelling Verified 06/22/22 18:33 of the Eye fentanyl Allergy Other Verified 06/22/22 18:33 Review of Systems Review of Systems: All systems reviewed & are unremarkable except as noted in HPI and below PMFSH Past Medical History Medical History Hematemesis/vomiting blood Kidney stone Miscarriage Social History Social History Social History: Independent Smoking packs per day: 0.1 Smoking cigarettes per day: 2.0 Years smoked: 11 Smoking pack-years: 1.10 Smoking status: Never smoker Tobacco type: cigarettes Alcohol intake: never Substance use: never Spiritual care concerns: No Exam Const: General: healthy appearing and no acute distress HENMT: Head: normal to inspection Face/Nose/Sinus: Normal external nose present Face and sinus: normal facial exam Eyes: Conjunctivae: conjunctivae normal Pupils: Equal, round and reactive pupils present EOM: EOMs intact bilaterally Neck: Neck: normal visual inspection Chest: Chest palpation & inspection: normal inspection of the chest Resp: Effort & Inspection: normal respiratory effort Cardio: Rate: regular rate Rhythm: regular rhythm GI: GI Palp: Yes Soft to palpation and Yes Tenderness to palpation present (GI) Auscultation: normal bowel sounds : General: Yes bladder normal to palpation Urinary Catheter: Urinary Catheter: patent and draining and urine cloudy Back/Spine/Pelvis: Back: no CVA tenderness Skin: Rashes: no rashes Wounds: no wounds Neuro: General: patient oriented x3 and moves all extremities Cranial nerves: Yes Nystagmus not present Speech: normal speech Extrem: General: normal to inspection and no clubbing, cyanosis or edema Psych: Appearance: grossly normal Mental Status: mental status grossly normal Affect: normal affect Course Course Emergency Course: Called pharmacy and Macrobid was called in and is still available for the patient to 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 extra-strength 1g. Critical Care Time Critical Care Time Critical Care Time: No Discharge Plan Discharge Clinical Impression: Urinary tract infection Patient Disposition: Home, Self-Care Condition: Stable Instructions: Antibiotic Form, Urinary Tract Infection in Women (ED) Additional Instructions: Advised to take medicine as prescribed and follow-up with spring inspector within 1 week for further evaluation and treatment. Macrobid has been reinstated and you can pick medicine up at your pharmacy. Prescriptions: No Action No Home Medications
[2022-06-22] MEDS: ACETAMINOPHEN 500 MG TABLET 1000 MG PO (19:01)
== END 2022-06-22 19:12 | disposition home or self-care (01) ==
LOC: CHSED 18:43
PROVIDERS: Emergency Provider Emergency Medicine
DX: N39.0 Urinary tract infection, site not specified (principal)
CPT/HCPCS: 99282

== ENCOUNTER 2022-06-23 02:17 | Emergency (ER) | payer MEDICAID, SELFPAY ==
[2022-06-23 02:30] VITALS: BP 127/94; PULSE 78; RESP 18; TEMP 36.6; O2SAT 99
[2022-06-23 02:54] LABS: Hematocrit 38.9 % (35.0-49.0); Hemoglobin 13.5 g/dL (12.0-15.0); Mean Corpuscular HGB Conc 34.7 g/dL (32.0-36.0); Mean Corpuscular Hemoglobin 29.9 pg (27.0-31.0); Mean Corpuscular Volume 86.1 fL (78.0-102.0); Mean Platelet Volume 10.6 fl (9.2-11.8); Platelet Count Result 234 K/mm3 (150-420); Red Blood Count 4.52 M/mm3 (4.20-5.40); Red Cell Distribution Width 11.5 % (11.6-14.4)
[2022-06-23 02:56] LABS: Appearance Urine Clear (Clear); Bilirubin Urine Negative (Negative); Blood Urine 3+ (Negative); Glucose Urine UA Negative (Negative); Ketones Urine Negative (Negative); Leukocyte Esterase Ur Negative (Negative); Nitrate Urine Negative (Negative); Protein Urine Negative (Negative); Specific Grav Ur 1.015 (1.010-1.020); Urobilinogen Urine 0.2 mg/dL (0.2-1.0)
[2022-06-23] MEDS: ONDANSETRON INJ 4 MG/2 ML VIAL IV PUSH (02:57)
[2022-06-23] MEDS: SODIUM CHLORIDE 0.9% IV 1,000 ML 999 ML IV CONT (02:57)
[2022-06-23 03:06] LABS: Add Urine Microscopic? YES; Color Urine Light Yellow (Yellow); RBC Urine >75 /hpf (0-2); WBC Urine 0-3 /hpf (0-3); White Blood Count 21.3 K/mm3 (4.8-10.8)
[2022-06-23 03:07] LABS: Bacteria Urine 1+ /hpf; Squamous Epithelial Cell Urine Rare /hpf (Few)
[2022-06-23 03:10] LABS: Band Neutrophils Percent 0 % (0-6); Basophils Percent Manual 0 % (0-1); Eosinophils Percent Manual 0 % (1-6); Lymphocytes Percent Manual 8 % (18-44); Monocytes Absolute Manual 1.06 K/mm3 (0.1-0.90); Monocytes Percent Manual 5 % (3-9); Neutrophils Absolute Manual 18.53 K/mm3 (1.7-7.2); Neutrophils Percent Manual 87 % (46-73); Platelet Estimate Adequate (Adequate)
[2022-06-23 03:14] LABS: Alanine Aminotransferase 24 U/L (14-59); Albumin Level 3.5 g/dL (3.4-5.0); Alkaline Phosphatase 75 U/L (46-116); Anion Gap 12 mmol/L (8-16); Aspartate Amino Transferase 14 U/L (15-37); Bilirubin,Total 0.3 mg/dL (0.00-1.00); Blood Urea Nitrogen 6 mg/dL (7-18); Calcium 8.9 mg/dL (8.5-10.1); Carbon Dioxide 21 mmol/L (21-32); Chloride 104 mmol/L (98-108); Estimated Glomerular Filt Rate > 60; Glucose 103 mg/dL (70-99); Osmolality Calculated 281 mOsm/kg (285-295); Potassium 3.7 mmol/L (3.5-5.1); Sodium 137 mmol/L (136-145); Total Protein 6.8 g/dL (6.4-8.2)
--- NOTE | 2022-06-23 03:22 | ED.GENADULT ---
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 The patient has a history of a kidney stone currently there is no blood in her urine no hematuria no fever chills vital signs are stable heart rate is 78, temperature is 97.9. The patient was seen earlier in the day and was advised that time that her Macrobid was at the pharmacy ready for her to quill picking machine operator. The patient with a history of kidney stones as having left flank pain which is consistent with a kidney stone that she had in the past. The patient did establish with a speech professor and was seen earlier today. Currently known fever or chills no diarrhea constipation, patient does have nausea with no episodes of vomiting. Location: back Severity: mild Severity scale (1-10): 5 Quality: aching Pain Consistency: intermittent Relieving factors: none Exacerbating factors: medication Related Data Allergies Allergy/AdvReac Type Severity Reaction Status Date / Time cephalexin Allergy Swelling Verified 06/23/22 02:34 of the Eye fentanyl Allergy Other Verified 06/23/22 02:34 Review of Systems Review of Systems: All systems reviewed & are unremarkable except as noted in HPI and below PMFSH Past Medical History Medical History Hematemesis/vomiting blood Kidney stone Miscarriage Social History Social History Social History: Independent Smoking packs per day: 0.1 Smoking cigarettes per day: 2.0 Years smoked: 11 Smoking pack-years: 1.10 Smoking status: Never smoker Tobacco type: cigarettes Alcohol intake: never Substance use: never Spiritual care concerns: No Exam Const: General: healthy appearing Nutritional Appearance: well nourished Orientation/consciousness: patient oriented x3 Limitations: no limitations HENMT: Head: normal to inspection Ears: external ears normal Face/Nose/Sinus: Normal external nose present Eyes: Pupils: Equal, round and reactive pupils present Neck: Neck: normal visual inspection Chest: Chest palpation & inspection: normal inspection of the chest Resp: Effort & Inspection: normal respiratory effort Auscultation: clear to auscultation bilaterally Cardio: Rate: regular rate Rhythm: regular rhythm GI: GI Palp: Yes Soft to palpation and Yes Tenderness to palpation present (GI) Back/Spine/Pelvis: Back: CVA tenderness Skin: General skin exam: normal color Rashes: no rashes Wounds: no wounds Neuro: General: patient oriented x3 Cranial nerves: Yes Nystagmus not present Extrem: General: normal to inspection Psych: Mental Status: mental status grossly normal Affect: normal affect Course Course Emergency Course: Reassessment of patient, she is more comfortable after receiving IV fluids and a g of IV Tylenol and Zofran. The patient did take her 1st dose of Macrobid at around midnight. Advised patient to follow-up with her speech professor possibly to have an ultrasound ordered of the left flank will out kidney stone. Otherwise patient is afebrile labs reviewed with patient white count elevated without a left shift advised patient to continue her antibiotics take medicine as prescribed and follow-up with her speech professor. Vital Signs Vital signs: Vital Signs Temperature 36.6 C 06/23/22 02:30 Pulse Rate 78 06/23/22 02:30 Respiratory Rate 18 06/23/22 02:30 Blood Pressure 127/94 H 06/23/22 02:30 Pulse Oximetry 99 06/23/22 02:30 Oxygen Delivery Room Air 06/23/22 02:30 Temperature 36.6 C 06/23/22 02:30 Pulse Rate 78 06/23/22 02:30 Respiratory
[2022-06-23 03:35] VITALS: BP 122/70; PULSE 81; RESP 18; O2SAT 99
== END 2022-06-23 03:36 | disposition home or self-care (01) ==
PROVIDERS: Emergency Provider Emergency Medicine
DX: N20.0 Calculus of kidney (principal); N30.00 Acute cystitis without hematuria
CPT/HCPCS: 36415; 80053; 81001; 85025; 96361; 96374; 96375; 99284; J0131; J2405; J7030

== ENCOUNTER 2022-10-22 11:48 | Observation (INO) | payer OTHER, SELFPAY ==
[2022-10-22 12:06] VITALS: BP 106/74; PULSE 71
[2022-10-22 12:09] VITALS: BMI 31.6
--- NOTE | 2022-10-22 12:10 | OBADM ---
This patient, Valentino Yan, admitted to the OB room OB Post 116 for observation. Patient/family oriented to hospital policies and general routines including ID bracelet, bed and alarms, visiting hours, pain management, procedures, bathroom and other care routines, personal items, smoking policy, room service/diet, and visiting hours. Patient/Family are encouraged to report perceived risks to care and to ask questions if they do not understand what they are told or what they should do.
--- NOTE | 2022-10-22 12:52 | PC.NURSE ---
1244--Visual inspection of vagina-no bleeding noted. Pt reports no pain on urination or in kidney area.
[2022-10-22 13:09] VITALS: TEMP 36.5
[2022-10-22] MEDS: NITROFURANTOIN MONOHYD MACROCR 100 MG CAP PO (13:20)
--- NOTE | 2022-11-08 11:37 | PM.OBTRLD ---
OB - Triage/Final Diagnosis Visit Information Comments/Additional reasons for admission: I have assessed the risk for this patient, Valentino Yan, and determined that she would benefit from observation care. Final Diagnosis (1) Other antepartum hemorrhage, third trimester: Code(s): O46.8X3 - Other antepartum hemorrhage, third trimester Status: Acute
== END 2022-10-22 13:20 | disposition home or self-care (01) ==
PROVIDERS: Admitting Provider Obstetrics & Gynecology; Visit Provider Obstetrics & Gynecology
DX: O46.90 Antepartum hemorrhage, unspecified, unspecified trimester (principal)
CPT/HCPCS: A9270; G0378; G0379

== ENCOUNTER 2022-12-26 16:36 | Inpatient (IN) | payer OTHER, SELFPAY ==
[2022-12-26] VITALS (29 sets, daily range): BP systolic 109–130; BP diastolic 55–95; PULSE 84–111; RESP 16; TEMP 36.6–36.7; BMI 34.9
--- NOTE | 2022-12-26 17:26 | LDADM ---
This patient, Valentino Yan, was admitted to Labor/Delivery/Recovery 102 on 12/26/22 at 16:36. Plans for labor, pain management and were discussed with patient. Patient/family oriented to hospital policies and general routines including ID bracelet, bed and alarms, visiting hours, pain management, procedures, bathroom and other care routines, personal items, smoking policy, room service/diet and guest tray routines, security routines, and visiting hours. Patient/Family are encouraged to report perceived risks to care and to ask questions if they do not understand what they are told or what they should do. See OBIX for further documentation.
[2022-12-26 17:42] LABS: Basophils Percent Auto 0.3 % (0.2-1.2); Eosinophils Percent Auto 0.3 % (0-4.4); Hematocrit 34.2 % (37.0-47.0); Hemoglobin 11.7 g/dL (12.0-15.0); Immature Granulocyte Absolute 0.08 K/mm3 (0.00-0.031); Immature Granulocyte Percent A 0.6 % (0-0.5); Lymphocytes Absolute Auto 1.25 K/mm3 (0.9-3.2); Mean Corpuscular HGB Conc 34.2 g/dl (32-36); Mean Corpuscular Hemoglobin 29.8 pg (26-34); Mean Platelet Volume 10.7 fl (7.4-10.4); Monocytes Absolute Auto 0.8 K/mm3 (0.1-0.6); Monocytes Percent Auto 6.3 % (2.6-8.5); Neutrophils Absolute Auto 10.3 K/mm3 (1.3-6.7); Neutrophils Percent Auto 82.5 % (45.5-73.1); Platelet Count Result 176 k/mm3 (150-375); Red Blood Count 3.93 M/mm3 (4.2-5.4); Red Cell Distribution Width 12.5 % (11.5-14.5); White Blood Count 12.5 K/mm3 (4.5-10.0)
--- NOTE | 2022-12-26 18:02 | WPDANESEPP ---
Anes - Eval Pre Procedure Procedure: labor epidural Date/Time: 12/26/22 18:02 Surgeon: boaz Preop Diagnosis: pain during labor Pre Op Diagnosis: Induction of Labor Patient Data Age: 22 Gender: F Height: 1.55 m Weight: 84 kg Last Vital Signs Pulse 86 12/26/22 18:01 BP 112/59 L 12/26/22 18:01 O2 Del Method Room Air 12/26/22 17:25 Allergies Allergy/AdvReac Type Severity Reaction Status Date / Time cephalexin Allergy Swelling Verified 12/09/22 15:39 of the Eye fentanyl Allergy Other Verified 12/09/22 15:39 Home Medications Medication Instructions Recorded Confirmed Type tamsulosin 0.4 mg capsule (Flomax) 0.4 mg PO DAILY #7 caps 06/23/22 Rx Laboratory Tests 12/26/22 12/26/22 17:18 17:18 WBC 12.5 K/mm3 H K/mm3 (4.5-10.0) RBC 3.93 M/mm3 L M/mm3 (4.2-5.4) Hgb 11.7 g/dL L g/dL (12.0-15.0) Hct 34.2 % L % (37.0-47.0) MCV 87.0 fl fl (80-100) MCH 29.8 pg pg (26-34) MCHC 34.2 g/dl g/dl (32-36) RDW 12.5 % % (11.5-14.5) Plt Count 176 k/mm3 k/mm3 (150-375) MPV 10.7 fl H fl (7.4-10.4) Immature Gran % (Auto) 0.6 % H % (0-0.5) Neut % (Auto) 82.5 % H % (45.5-73.1) Lymph % (Auto) 10.0 % L % (18.3-44.2) [place] % (Auto) 6.3 % % (2.6-8.5) Eos % (Auto) 0.3 % % (0-4.4) Baso % (Auto) 0.3 % % (0.2-1.2) Lymph # (Auto) 1.25 K/mm3 K/mm3 (0.9-3.2) [place] # (Auto) 0.8 K/mm3 H K/mm3 (0.1-0.6) Eos # (Auto) 0.0 K/mm3 K/mm3 (0-0.3) Baso # (Auto) 0.0 K/mm3 K/mm3 (0.0-0.1) Abs Immat Gran (auto) 0.08 K/mm3 H K/mm3 (0.00-0.031) Absolute Neuts (auto) 10.3 K/mm3 H K/mm3 (1.3-6.7) Absolute Nucleated RBC 0.0 K/mm3 K/mm3 (0.0-0.012) Nucleated RBC % 0.0 % % (0.0-0.2) RPR Pending Patient hx anesthesia problems: none Family hx anesthesia problems: none Results Review: All pre-operative results and documents have been reviewed as part of the pre-operative evaluation. [facility] Past Medical History Medical History (Updated 12/26/22 @ 18:03 by Jacqui Moss CRNA) Hematemesis/vomiting blood IUP (intrauterine ), incidental Kidney stone Miscarriage Obesity (BMI 30-39.9) Family History Family History (Updated 12/09/22 @ 15:41 by Marley Hilliard, RN) Grandparent Kidney stone Social History Social History Social History: Independent Smoking packs per day: 0.1 Smoking cigarettes per day: 2.0 Years smoked: 11 Smoking pack-years: 1.10 Smoking status: Former smoker Tobacco type: e-cigarettes/vaping Second hand tobacco smoke exposure: Yes Alcohol intake: never Substance use: never Lack of Transportation: No Lack of Food: Never True Current Housing: I Have Housing Concerned About Future Housing: No Difficulty Paying Gas/Electric Bills: No Difficulty Paying for Meds: No Currently Unemployed: YES Education: High School Diploma/GED Difficulty w/ Childcare or Family Care: No Spiritual care concerns: No Exam Day of Procedure 12/26/22 18:02
[2022-12-26] MEDS: miSOPROStol 25 MCG TABLET BY MOUTH (18:43)
[2022-12-26] MEDS: DINOPROSTONE 10 MG VAG INSERT VAGINAL (22:46)
[2022-12-27] VITALS (207 sets, daily range): BP systolic 85–133; BP diastolic 46–104; PULSE 58–134; RESP 16–18; TEMP 36.2–37.2; O2SAT 92–100
[2022-12-27] MEDS: ONDANSETRON INJ 4 MG/2 ML VIAL IV PUSH (03:06)
[2022-12-27] MEDS: LACTATED RINGERS 1,000 ML 125 ML IV CONT ×3 (10:58→17:51)
--- NOTE | 2022-12-27 11:40 | WPDANESEPP ---
Anes - Eval Pre Procedure Procedure: Labor epidural Date/Time: 12/27/22 11:40 Surgeon: Norah Preop Diagnosis: pain during labor Pre Op Diagnosis: Induction of Labor Patient Data Age: 22 Gender: F Height: 1.55 m Weight: 84 kg Last Vital Signs Temp 36.4 C L 12/27/22 06:37 Pulse 70 12/27/22 10:01 Resp 16 12/27/22 05:30 BP 120/82 12/27/22 10:01 O2 Del Method Room Air 12/26/22 18:40 Allergies Allergy/AdvReac Type Severity Reaction Status Date / Time cephalexin Allergy Swelling Verified 12/09/22 15:39 of the Eye fentanyl Allergy Other Verified 12/09/22 15:39 Home Medications Medication Instructions Recorded Confirmed Type tamsulosin 0.4 mg capsule (Flomax) 0.4 mg PO DAILY #7 caps 06/23/22 Rx Laboratory Tests 12/26/22 12/26/22 12/26/22 17:18 17:18 17:18 WBC 12.5 K/mm3 H K/mm3 (4.5-10.0) RBC 3.93 M/mm3 L M/mm3 (4.2-5.4) Hgb 11.7 g/dL L g/dL (12.0-15.0) Hct 34.2 % L % (37.0-47.0) MCV 87.0 fl fl (80-100) MCH 29.8 pg pg (26-34) MCHC 34.2 g/dl g/dl (32-36) RDW 12.5 % % (11.5-14.5) Plt Count 176 k/mm3 k/mm3 (150-375) MPV 10.7 fl H fl (7.4-10.4) Immature Gran % (Auto) 0.6 % H % (0-0.5) Neut % (Auto) 82.5 % H % (45.5-73.1) Lymph % (Auto) 10.0 % L % (18.3-44.2) Lawrence % (Auto) 6.3 % % (2.6-8.5) Eos % (Auto) 0.3 % % (0-4.4) Baso % (Auto) 0.3 % % (0.2-1.2) Lymph # (Auto) 1.25 K/mm3 K/mm3 (0.9-3.2) Lawrence # (Auto) 0.8 K/mm3 H K/mm3 (0.1-0.6) Eos # (Auto) 0.0 K/mm3 K/mm3 (0-0.3) Baso # (Auto) 0.0 K/mm3 K/mm3 (0.0-0.1) Abs Immat Gran (auto) 0.08 K/mm3 H K/mm3 (0.00-0.031) Absolute Neuts (auto) 10.3 K/mm3 H K/mm3 (1.3-6.7) Absolute Nucleated RBC 0.0 K/mm3 K/mm3 (0.0-0.012) Nucleated RBC % 0.0 % % (0.0-0.2) RPR Pending Blood Type O Positive Antibody Screen Negative Patient hx anesthesia problems: none Family hx anesthesia problems: none Results Review: All pre-operative results and documents have been reviewed as part of the pre-operative evaluation. [facility] Past Medical History Medical History Hematemesis/vomiting blood IUP (intrauterine ), incidental Kidney stone Miscarriage Obesity (BMI 30-39.9) Family History Family History Grandparent Kidney stone Social History Social History Social History: Independent Smoking packs per day: 0.1 Smoking cigarettes per day: 2.0 Years smoked: 11 Smoking pack-years: 1.10 Smoking status: Former smoker Tobacco type: e-cigarettes/vaping Second hand tobacco smoke exposure: Yes Alcohol intake: never Substance use: never Lack of Transportation: No Lack of Food: Never True Current Housing: I Have Housing Concerned About Future Housing: No Difficulty Paying Gas/Electric Bills: No Difficulty Paying for Meds: No Currently Unemployed: YES Education: High School Diploma/GED Difficulty w/ Childcare or Family Care: No Spiritual care concerns: No Exam Day of Procedure 12/27/22 11:40 Patient weight: overweight Neurological: alert and oriented
[2022-12-27] MEDS: OXYTOCIN 30 UNITS/NS 500 ML 30 UNITS/500 ML BAG 6 UNITS IV CONT (12:33)
[2022-12-27 12:34] LABS: Rapid Plasma Reagin Non-Reactive (NonReactive)
--- NOTE | 2022-12-27 21:04 | P.PCNOB_ITS ---
OB - Delivery Note Procedure Delivery date: 12/27/22 Procedure: Induction method: AROM, Per Misoprostol Protocol, Per Pitocin Protocol and Per Cervidil Protocol Route of delivery: Episiotomy description: None Laceration Description: Perineal - 2nd Degree Delivery repair: vicryl Specimen: No Quantitative Blood Loss (ml): 400 Anesthesia type: Epidural [place] Baby Date of : 12/27/22 Time of : 20:40 Weeks of gestation at delivery: 39 Weight (pounds): 7 Weight (ounces): 6 presentation: vertex position: Left Occiput Anterior score one minute: 8 score five minutes: 9
[2022-12-27] MEDS: OXYTOCIN 30 UNITS/NS 500 ML 30 UNITS/500 ML BAG 125 UNITS IV CONT (21:15)
[2022-12-27] MEDS: IBUPROFEN 600 MG TABLET PO (22:04)
[2022-12-27] MEDS: WITCH HAZEL 40 PADS 1 PAD TOPICAL (22:16)
[2022-12-27] MEDS: BENZOCAINE 20% AER SPR (*SP) 56 GM CAN 1 SPRAY TOPICAL (22:16)
[2022-12-27] MEDS: ACETAMINOPHEN 325 MG TABLET 650 MG PO (23:13)
[2022-12-27] MEDS: HYDROmorphone HCL INJ (*CRX) 1 MG/ML SYR 0.5 MG IV PUSH (23:19)
--- NOTE | 2022-12-28 00:04 | OBPPTRN ---
Patient transferred to post room #282 via wheelchair. Support person present. Oriented to unit, room, information board, rooming in, admission packet and security measures. Patient verbalizes understanding.
[2022-12-28 00:20] VITALS: BP 108/49; PULSE 72; RESP 16; TEMP 37.4; O2SAT 99
[2022-12-28 03:51] VITALS: BP 111/67; PULSE 86; RESP 18; TEMP 37.1; O2SAT 99
[2022-12-28 05:39] LABS: Hematocrit 27.9 % (37.0-47.0); Hemoglobin 9.3 g/dL (12.0-15.0)
[2022-12-28 07:40] VITALS: BP 113/57; PULSE 78; RESP 18; TEMP 36.9; O2SAT 99
[2022-12-28] MEDS: IBUPROFEN 600 MG TABLET PO ×2 (07:47→14:18)
[2022-12-28] MEDS: DOCUSATE SODIUM 100 MG CAPSULE PO ×2 (07:47→16:35)
[2022-12-28] MEDS: POLYSACCHARIDE IRON COMPLEX 150 MG CAPSULE PO ×2 (07:47→16:34)
[2022-12-28] MEDS: MULTIVIT/MIN/PREN/FOL AC/IRON TABLET 1 TAB PO (07:47)
[2022-12-28] MEDS: DIBUCAINE 1% OINTMENT 30 GM TUBE 1 APPLIC TOPICAL (08:00)
--- NOTE | 2022-12-28 08:14 | PM.OBPNVD ---
OB - PN: Subj Subjective Date/time seen: 12/28/22 08:14 Patient comments: no complaints, pain well controlled, incisional pain, tolerating diet and flatus present OB - PN: Obj Data Labs 12/28/22 04:22 Labs: Laboratory Results - last 24 hr 12/26/22 12/28/22 17:18 04:22 Hgb 9.3 L Hct 27.9 L RPR Non-reactive OB - PN A/P Plan day: 1 Plan: routine care Comments: No problems, routine care Time Spent With Patient Time: Total time spent is greater than 50% in coordination of care (as documented) at patient's floor/unit and/or counseling patient: Exam Const: General: comfortable, no acute distress and alert Resp: Effort & Inspection: normal respiratory effort Auscultation: no crackles, no rales and no rhonchi Cardio: Rate: regular rate Heart sounds: no click, no murmurs and no rubs GI: Inspection: non-distended GI Palp: No Tenderness to palpation present (GI) Auscultation: normal bowel sounds Other: Incision - CDI Extrem: General: normal to inspection, no pedal edema and no calf tenderness
--- NOTE | 2022-12-28 09:35 | WPDANLDPN2 ---
Anes-Prog Note L&D Date/Time: 12/28/22 09:35 Comfortable throughout: labor and delivery Neuraxial method: epidural Epidural/Spinal procedure site: clean & non-tender Neuro status: Neuro function grossly intact. Cardiovascular status: normal Respiratory status: normal Airway patency: baseline Mental status: baseline Post-Op hydration status: normal Vital Signs: Last Vital Signs Temp 36.9 C 12/28/22 07:40 Pulse 78 12/28/22 07:40 Resp 18 12/28/22 07:40 BP 113/57 L 12/28/22 07:40 Pulse Ox 99 12/28/22 07:40 O2 Del Method Room Air 12/26/22 18:40 Pain score (VAS): 2 I/O: Intake & Output 12/27/22 12/28/22 12/28/22 23:59 07:59 15:59 Intake Total 1000 240 Output Total 475 Balance 525 240 Post-procedural complaints: none Patient feedback: Patient satisfied with anesthetic care.
[2022-12-28] MEDS: TETANUS,DIPHTHERIA,AC PERTUSSIS ADULT (0.5 ML) BOOSTRIX IM (10:32)
--- NOTE | 2022-12-28 11:18 | PC.NURSE ---
[id number] Introductions were made, then consulted with patient to assess needs related to . Resources provided for inpatient and outpatient services with the feeding sheet, business card and name written on the white board. Mother voiced understanding of information and requests assistance as is cradled in her arms sleeping and she states she cannot wake up. Mother works with her infant with encouragement and education. Encouraged understanding of the benefits of skin to skin (demonstrating unwrapping and placing upright on her chest), stimulating with massage touch, changing positions to encourage wakefulness, how to watch for early feeding cues, responsive feeding, feeding on demand (aiming for 8-12 times in 24 hours, about every 2-3 hours), milk production,hand expression, building/maintaining a milk supply, duration of feeding, signs of adequate intake/output and how to record on the feeding sheet. Reviewed positioning and ear, shoulder, hip alignment, supporting the breast to facilitate a deep latch, asymmetrical latch (off-center), leading with the chin with a big, open, wide gape and body close to mother. Infant is awake and demonstrating no feeding cues. Practiced hand expression with mother and 8mls of colostrum was spoon fed to her . Infant is reluctant and sleepy. Nipple care reviewed with optimal latch and good positioning. Reviewed good handwashing when or touching the breast/nipples to prevent infection. Resources used to facilitate learning were used with the visual handouts, tool, and mom and baby guide. Mother voiced understanding of skin to skin, stimulating with massage touch, responsive feedings, hand expressed colostrum, talking to to encourage if it has been 2 -2.5 hours since the start of the last , to call if infant does not latch, or if there is discomfort with . Resources provided for inpatient/outpatient with business card, feeding sheet and the mom/baby guide. Parents voiced understanding of information, demonstrated learning and will call if there is a request for assistance. Reported to the primary RN.
[2022-12-28 12:14] VITALS: BP 125/66; PULSE 80; RESP 16; TEMP 37.1; O2SAT 99
[2022-12-28] MEDS: ACETAMINOPHEN 325 MG TABLET 650 MG PO (12:18)
--- NOTE | 2022-12-28 17:09 | PC.NURSE ---
Patient viewed the discharge video Mother & Baby Care, The First Two Weeks . Patient was given the opportunity and encouraged to ask questions. Patient verbalized understanding of information shared and has been given the mother/baby guide for home reference.
[2022-12-28 21:16] VITALS: BP 118/73; PULSE 94; RESP 16; TEMP 36.8; O2SAT 99
[2022-12-28] MEDS: HYDROcodone/acetaminophen (*CRX) 5-325 MG TABLET 1 TAB PO (21:27)
[2022-12-29] MEDS: IBUPROFEN 600 MG TABLET PO ×2 (01:43→08:46)
[2022-12-29] MEDS: HYDROcodone/acetaminophen (*CRX) 10-325 MG TABLET 1 TAB PO (01:45)
--- NOTE | 2022-12-29 07:39 | PM.OBPNVD ---
OB - PN: Subj Subjective Date/time seen: 12/29/22 07:39 s/p vaginal delivery day 2 OB - PN: Obj Data Labs 12/28/22 04:22 OB - PN A/P Plan day: 2 Plan: routine care and discharge home Time Spent With Patient Time: Total time spent is greater than 50% in coordination of care (as documented) at patient's floor/unit and/or counseling patient: Review of Systems Review of Systems: All systems reviewed & are unremarkable except as noted in HPI and below Exam Const: General: cooperative, healthy appearing and comfortable Chest: Chest palpation & inspection: normal inspection of the chest Resp: Effort & Inspection: normal respiratory effort GI: Inspection: normal to inspection Skin: General skin exam: normal color
--- NOTE | 2022-12-29 07:42 | PM.OBDSVD ---
DS: Admitting Diagnosis Discharge Date 12/29/22 Admitting Diagnosis IOL DS: Discharge Diagnosis Discharge Diagnosis (1) Vaginal delivery: Code(s): O80 - Encounter for full-term uncomplicated delivery Status: Acute OB - DS: Summary OB Procedures : None OB Procedures Intrapartum: Spontaneous Vag Delivery OB Procedures: : None Time Spent with Patient Time attestation: Total time spent providing and/or coordinating discharge services: Discharge Plan Discharge Attending physician on discharge: Ira Almazan Discharging Clinician: Alejandra Cantu Patient Disposition: Home, Self-Care Activity: pelvic rest Diet: regular Patient Instructions: Antibiotic Form Stand Alone Forms: General Discharge Information Follow-up/Referrals: Ira Almazan MD [Physician] - 4 Weeks Discharge Medications: Continued tamsulosin [Flomax] 0.4 mg capsule 0.4 mg PO DAILY Qty: 7 0RF Date of admission: 12/26/22 16:36 Primary Care Provider: UNKNOWN,DOCTOR Admitting Provider: Ira Almazan Attending physician on admission: Ira Almazan Condition: Stable
[2022-12-29 08:00] VITALS: BP 104/60; PULSE 70; RESP 13; TEMP 36.6; O2SAT 98
[2022-12-29] MEDS: MULTIVIT/MIN/PREN/FOL AC/IRON TABLET 1 TAB PO (08:45)
[2022-12-29] MEDS: DOCUSATE SODIUM 100 MG CAPSULE PO (08:45)
[2022-12-29] MEDS: POLYSACCHARIDE IRON COMPLEX 150 MG CAPSULE PO (08:46)
--- NOTE | 2022-12-29 11:12 | PC.NURSE ---
[id number] Purposefully rounded to assess needs. is under phototherapy. Parents are comfortable with their plan to pump and feed. They are supplementing with formula at this time. Mother is encouraged to pump for comfort and nipple stretching/stimulation for adequate milk production every 3 hours (8 times in 24 hours) 1-2 times at night. Mother voiced understanding of the education shared along with mom and baby guide for additional resource information. Resources provided for outpatient services and mother states she has a [facility] resource as well. Parents were encouraged to use their resources. Reported to the primary RN.
[2022-12-29 12:58] VITALS: BP 126/68; PULSE 80; RESP 12; TEMP 36.6; O2SAT 96
== END 2022-12-29 16:47 | disposition home or self-care (01) | DRG 560 ==
LOC: ANHLDR 16:40 → ANHOB2 12-28 00:43
PROVIDERS: Admitting Provider Obstetrics & Gynecology; Visit Provider Obstetrics & Gynecology
DX: O70.1 Second degree perineal laceration during delivery (principal); Z37.0 Single live birth; Z3A.39 39 weeks gestation of pregnancy
CPT/HCPCS: 36415; 85014; 85018; 85025; 86592; 86850; 86900; 86901; 90715; A9270; J1170; J2405; J2590; J7120

== ENCOUNTER 2023-06-18 09:29 | Emergency (ER) | payer OTHER, SELFPAY ==
--- NOTE | 2023-06-18 09:37 | ED.NAVMDI ---
HPI - Nausea/Vomiting/Diarrhea General Chief complaint: Nausea/Vomiting/Diarrhea Stated complaint: N-V Time Seen by Provider: 06/18/23 09:34 Source: patient and RN notes reviewed Mode of arrival: ambulatory Limitations: no limitations History of Present Illness HPI Narrative: patient states she has taken several tests at home which were positive. She began having nausea vomiting last couple of days. She denies any fever chills. She denies any diarrhea. She has been having epigastric pain because of the vomiting she says. MD elicited complaint: nausea and vomiting Onset (ago): day(s) (2-3) Description of vomiting: food contents Associated abdominal pain: Yes Location of pain: epigastric Pain consistency: intermittent Severity: mild Quality: cramping Exacerbating factors: eating Relieving factors: none Context: other (possibly [id number]) Associated symptoms: denies other symptoms Related Data Allergies Allergy/AdvReac Type Severity Reaction Status Date / Time cephalexin Allergy Swelling Verified 06/18/23 09:50 of the Eye fentanyl Allergy Other Verified 06/18/23 09:50 Review of Systems Review of Systems: All systems reviewed & are unremarkable except as noted in HPI and below PMFSH Past Medical History Medical History (Updated 06/18/23 @ 10:54 by Miller Armstrong MD) Hematemesis/vomiting blood IUP (intrauterine ), incidental Kidney stone Miscarriage Obesity (BMI 30-39.9) Surgical History Surgical History (Updated 06/18/23 @ 09:42 by Miller Armstrong MD) H/O dilation and curettage X 2 Family History Family History Grandparent Kidney stone Social History Social History Social History: Independent Smoking packs per day: 0.1 Smoking cigarettes per day: 2.0 Years smoked: 11 Smoking pack-years: 1.10 Smoking status: Former smoker Tobacco type: e-cigarettes/vaping Second hand tobacco smoke exposure: Yes Alcohol intake: never Substance use: never Lack of Transportation: No Lack of Food: Never True Current Housing: I Have Housing Concerned About Future Housing: No Difficulty Paying Gas/Electric Bills: No Difficulty Paying for Meds: No Currently Unemployed: YES Education: High School Diploma/GED Difficulty w/ Childcare or Family Care: No Spiritual care concerns: No Exam Const: General: healthy appearing, no acute distress and alert Nutritional Appearance: well nourished and obese Orientation/consciousness: patient oriented x3 Limitations: no limitations Other: female nurse in room during examination. HENMT: Head: normal to inspection Ears: external ears normal Face/Nose/Sinus: Normal external nose present Face and sinus: normal facial exam Mouth: Yes moist mucous membranes Eyes: Conjunctivae: conjunctivae normal Cornea: corneas normal Pupils: Equal, round and reactive pupils present EOM: EOMs intact bilaterally Neck: Neck: normal visual inspection Resp: Effort & Inspection: normal respiratory effort Auscultation: clear to auscultation bilaterally Cardio: Rate: regular rate Rhythm: regular rhythm GI: GI Palp: Yes Soft to palpation, Yes Tenderness to palpation present (GI) ( Mild epigastric), No Guarding due to palpation present (GI) and No Rebound tenderness present Auscultation: normal bowel sounds Back/Spine/Pelvis: Cervical Spine: cervical ROM normal Thoracic/Lumbar Spine: thoraco-lumbar ROM normal Skin: General skin exam: normal color Neuro: General: patient oriented x3, moves all extremities, no focal motor deficits and CN's II-XI intact bilaterally Extrem: General: normal to inspection and no clubbing, cyanosis or edema Psych: Mental Status: mental status grossly normal Affect: normal affect Attitude: cooperative MDM - Nausea/Vomiting/Diarrhea Differential Diagnosis Differential diagn
[2023-06-18 09:39] VITALS: BP 119/73; PULSE 53; RESP 18; TEMP 36.7; O2SAT 98
[2023-06-18 09:59] LABS: Basophils Absolute Auto 0.04 K/mm3 (0.00-0.10); Basophils Percent Auto 0.4 % (0.0-1.0); Eosinophils Absolute Auto 0.03 K/mm3 (0.02-0.50); Eosinophils Percent Auto 0.3 % (1.0-6.0); Hematocrit 39.3 % (35.0-49.0); Hemoglobin 13.1 g/dL (12.0-15.0); Immature Granulocyte Absolute 0.03 K/mm3 (0.00-0.00); Immature Granulocyte Percent A 0.3 % (0.0-0.0); Lymphocytes Absolute Auto 1.22 K/mm3 (1.10-4.50); Lymphocytes Percent Auto 11.3 % (18.0-42.0); Mean Corpuscular HGB Conc 33.3 g/dL (32.0-36.0); Mean Corpuscular Hemoglobin 25.9 pg (27.0-31.0); Mean Corpuscular Volume 77.7 fL (78.0-102.0); Mean Platelet Volume 10.3 fl (9.2-11.8); Monocytes Percent Auto 5.6 % (2.0-11.0); Neutrophils Absolute Auto 8.9 K/mm3 (1.7-7.2); Neutrophils Percent Auto 82.1 % (50.0-70.0); Platelet Count Result 291 K/mm3 (150-420); Red Blood Count 5.06 M/mm3 (4.20-5.40); Red Cell Distribution Width 14.2 % (11.6-14.4); White Blood Count 10.8 K/mm3 (4.8-10.8)
[2023-06-18 10:30] VITALS: BP 125/64; PULSE 53; RESP 16; O2SAT 99
[2023-06-18 10:33] LABS: SPREG INTERNAL CONTROL Positive; Serum Qual hCG Positive
[2023-06-18] MEDS: ONDANSETRON HCL ODT 4 MG TABLET PO (10:39)
[2023-06-18 10:48] LABS: Alanine Aminotransferase 26 U/L (14-59); Albumin Level 3.6 g/dL (3.4-5.0); Alkaline Phosphatase 111 U/L (46-116); Anion Gap 12 mmol/L (8-16); Aspartate Amino Transferase 10 U/L (15-37); Bilirubin,Total 0.7 mg/dL (0.00-1.00); Blood Urea Nitrogen 10 mg/dL (7-18); Calcium 9.4 mg/dL (8.5-10.1); Carbon Dioxide 21 mmol/L (21-32); Chloride 104 mmol/L (98-108); Estimated CRCL calculation 106 ml/min; Estimated Glomerular Filt Rate > 60; Glucose 93 mg/dL (70-99); Lipase 12 U/L (16-77); Osmolality Calculated 283 mOsm/kg (285-295); Potassium 3.9 mmol/L (3.5-5.1); Sodium 137 mmol/L (136-145); Total Protein 7.2 g/dL (6.4-8.2)
[2023-06-18 11:06] VITALS: TEMP 37.1
== END 2023-06-18 11:10 | disposition home or self-care (01) ==
PROVIDERS: Emergency Provider Emergency Medicine; PCP Obstetrics & Gynecology
DX: O21.9 Vomiting of pregnancy, unspecified (principal); Z3A.00 Weeks of gestation of pregnancy not specified
CPT/HCPCS: 36415; 80053; 83690; 84703; 85025; 99283; A9270

== ENCOUNTER 2023-06-25 09:28 | Emergency (ER) | payer OTHER, SELFPAY ==
[2023-06-25 09:29] VITALS: BP 125/66; PULSE 96; RESP 19; TEMP 36.6; O2SAT 97
[2023-06-25] MEDS: SODIUM CHLORIDE 0.9% IV 1,000 ML 999 ML IV CONT (09:44)
[2023-06-25] MEDS: ONDANSETRON INJ 4 MG/2 ML VIAL IV PUSH (09:45)
--- NOTE | 2023-06-25 10:01 | ED.NAVMDI ---
HPI - Nausea/Vomiting/Diarrhea General Chief complaint: Nausea/Vomiting/Diarrhea Stated complaint: nausea/vomiting Time Seen by Provider: 06/25/23 09:50 Source: patient Mode of arrival: ambulatory Limitations: no limitations History of Present Illness HPI Narrative: 22 year old female presents to the Emergency Department complaining of nausea and vomiting. Onset 1-1/2 weeks ago. Patient is . History of same with previous . Patient has oral Zofran pills. Patient is urinating. MD elicited complaint: nausea and vomiting Onset (ago): week(s) (-09/18) Description of vomiting: bilious Associated nausea: Yes Associated abdominal pain: No Exacerbating factors: other () Relieving factors: none Associated symptoms: denies other symptoms Treatment prior to arrival: other (Zofran po) Related Data Allergies Allergy/AdvReac Type Severity Reaction Status Date / Time cephalexin Allergy Swelling Verified 06/25/23 09:57 of the Eye fentanyl Allergy Other Verified 06/25/23 09:57 Review of Systems Review of Systems: All systems reviewed & are unremarkable except as noted in HPI and below Constitutional: Constitutional: Reports as per HPI Eyes: Eyes: Reports as per HPI ENT: Reports system reviewed and no additional complaints, except as documented Cardiovascular: Cardiovascular: Reports as per HPI Respiratory: Respiratory: Reports as per HPI Gastrointestinal: Gastrointestinal: Reports as per HPI, Reports no additional gastrointestinal complaints, Reports nausea and Reports vomiting Genitourinary: Genitourinary: Reports no additional female genitourinary complaints Musculoskeletal: Musculoskeletal: Reports no additional musculoskeletal complaints Integumentary/Breasts: Skin/Breast: Reports system reviewed and no additional complaints, except as docu Neurologic: Reports system reviewed and no additional complaints, except as documented Psychiatric: Psychiatric: Reports no additional psychiatric complaints Endocrine: Endocrine: Reports no additional endocrine complaints Hematologic/Lymphatic: Hematologic/Lymphatic: Reports no additional hematologic/lymphatic complaints Allergic/Immunologic: Allergic/Immunologic: Reports no additional allergic/immunologic complaints PMFSH Past Medical History Medical History Hematemesis/vomiting blood IUP (intrauterine ), incidental Kidney stone Miscarriage Obesity (BMI 30-39.9) Surgical History Surgical History H/O dilation and curettage X 2 Family History Family History Grandparent Kidney stone Social History Social History Social History: Independent Smoking packs per day: 0.1 Smoking cigarettes per day: 2.0 Years smoked: 11 Smoking pack-years: 1.10 Smoking status: Former smoker Tobacco type: e-cigarettes/vaping Second hand tobacco smoke exposure: Yes Alcohol intake: never Substance use: never Lack of Transportation: No Lack of Food: Never True Current Housing: I Have Housing Concerned About Future Housing: No Difficulty Paying Gas/Electric Bills: No Difficulty Paying for Meds: No Currently Unemployed: YES Education: High School Diploma/GED Difficulty w/ Childcare or Family Care: No Spiritual care concerns: No Exam Const: General: healthy appearing Nutritional Appearance: well nourished Orientation/consciousness: patient oriented x3 Limitations: no limitations HENMT: Head: normal to inspection Ears: external ears normal Face/Nose/Sinus: Normal external nose present Face and sinus: normal facial exam Mouth: Yes Normal oral and palatal mucosa present Eyes: Conjunctivae: conjunctivae normal Pupils: Equal, round and reactive pupils present EOM: EOMs intact bila
[2023-06-25 10:44] VITALS: BP 110/67; PULSE 63; RESP 17; TEMP 36.8; O2SAT 98
== END 2023-06-25 10:44 | disposition home or self-care (01) ==
PROVIDERS: Emergency Provider Emergency Medicine; PCP Obstetrics & Gynecology
DX: O21.0 Mild hyperemesis gravidarum (principal); Z3A.00 Weeks of gestation of pregnancy not specified
CPT/HCPCS: 96361; 96374; 99284; J2405; J7030

== ENCOUNTER 2023-08-03 15:06 | Emergency (ER) | payer OTHER, SELFPAY ==
[2023-08-03 15:06] VITALS: BP 135/89; PULSE 98; RESP 22; TEMP 36.6; O2SAT 97
--- NOTE | 2023-08-03 15:29 | ED.NAVMDI ---
HPI - Nausea/Vomiting/Diarrhea General Chief complaint: Nausea/Vomiting/Diarrhea Stated complaint: 11wks and vomiting Time Seen by Provider: 08/03/23 15:26 Source: patient and RN notes reviewed Mode of arrival: ambulatory Limitations: no limitations History of Present Illness MD elicited complaint: nausea, vomiting and diarrhea Onset (ago): hour(s) (10) Description of vomiting: food contents and bilious Description of diarrhea: watery Associated nausea: Yes Associated abdominal pain: Yes Location of pain: diffuse Pain consistency: intermittent Severity: mild Quality: cramping Exacerbating factors: eating Relieving factors: none Context: other ( 11 weeks) Associated symptoms: denies other symptoms Treatment prior to arrival: other ( Zofran) Related Data Allergies Allergy/AdvReac Type Severity Reaction Status Date / Time cephalexin Allergy Swelling Verified 08/03/23 15:30 of the Eye fentanyl Allergy Other Verified 08/03/23 15:30 Review of Systems Review of Systems: All systems reviewed & are unremarkable except as noted in HPI and below PMFSH Past Medical History Medical History Hematemesis/vomiting blood IUP (intrauterine ), incidental Kidney stone Miscarriage Obesity (BMI 30-39.9) Surgical History Surgical History H/O dilation and curettage X 2 Family History Family History Grandparent Kidney stone Social History Social History Social History: Independent Smoking packs per day: 0.1 Smoking cigarettes per day: 2.0 Years smoked: 11 Smoking pack-years: 1.10 Smoking status: Former smoker Tobacco type: e-cigarettes/vaping Second hand tobacco smoke exposure: Yes Alcohol intake: never Substance use: never Lack of Transportation: No Lack of Food: Never True Current Housing: I Have Housing Concerned About Future Housing: No Difficulty Paying Gas/Electric Bills: No Difficulty Paying for Meds: No Currently Unemployed: YES Education: High School Diploma/GED Difficulty w/ Childcare or Family Care: No Spiritual care concerns: No Exam Const: General: no acute distress, alert and ill appearing acutely Nutritional Appearance: well nourished and obese Orientation/consciousness: patient oriented x3 Limitations: no limitations Other: female nurse in room during examination. HENMT: Head: normal to inspection Ears: external ears normal Face/Nose/Sinus: Normal external nose present Face and sinus: normal facial exam Mouth: Yes moist mucous membranes Eyes: Conjunctivae: conjunctivae normal Cornea: corneas normal Pupils: Equal, round and reactive pupils present EOM: EOMs intact bilaterally Neck: Neck: normal visual inspection Resp: Effort & Inspection: normal respiratory effort Auscultation: clear to auscultation bilaterally Cardio: Rate: regular rate Rhythm: regular rhythm GI: GI Palp: Yes Soft to palpation, Yes Tenderness to palpation present (GI) ( mild generalized) and No Guarding due to palpation present (GI) Auscultation: normal bowel sounds Back/Spine/Pelvis: Cervical Spine: cervical ROM normal Thoracic/Lumbar Spine: thoraco-lumbar ROM normal Skin: General skin exam: normal color Rashes: no rashes Neuro: General: patient oriented x3, moves all extremities, no focal motor deficits and CN's II-XI intact bilaterally Speech: normal speech Gait exam (Neuro): Normal gait present Extrem: General: normal to inspection and no clubbing, cyanosis or edema Psych: Mental Status: mental status grossly normal Affect: normal affect Attitude: cooperative Course Vital Signs Vital signs: Vital Signs Temperature 36.6 C 08/03/23 15:06 Pulse Rate 98 08/03/23 15:06 Respiratory Rate 22 H 08/03/23 15:06 Blo
[2023-08-03] MEDS: SODIUM CHLORIDE 0.9% IV 1,000 ML 999 ML IV CONT (15:42)
[2023-08-03] MEDS: METOCLOPRAMIDE HCL INJ 10 MG/2 ML VIAL IV PUSH (15:43)
[2023-08-03 15:52] VITALS: RESP 20; O2SAT 98
[2023-08-03 15:52] LABS: Hematocrit 39.3 % (35.0-49.0); Hemoglobin 13.1 g/dL (12.0-15.0); Mean Corpuscular HGB Conc 33.3 g/dL (32.0-36.0); Mean Corpuscular Hemoglobin 27.1 pg (27.0-31.0); Mean Corpuscular Volume 81.2 fL (78.0-102.0); Mean Platelet Volume 10.9 fl (9.2-11.8); Platelet Count Result 206 K/mm3 (150-420); Red Blood Count 4.84 M/mm3 (4.20-5.40); Red Cell Distribution Width 13.8 % (11.6-14.4); White Blood Count 17.2 K/mm3 (4.8-10.8)
[2023-08-03 16:00] VITALS: RESP 20; O2SAT 98
[2023-08-03 16:01] VITALS: BP 127/84; RESP 20; O2SAT 98
[2023-08-03 16:08] LABS: Alanine Aminotransferase 17 U/L (14-59); Albumin Level 2.9 g/dL (3.4-5.0); Alkaline Phosphatase 101 U/L (46-116); Anion Gap 8 mmol/L (8-16); Aspartate Amino Transferase 11 U/L (15-37); Band Neutrophils Percent 0 % (0-6); Bilirubin,Total 0.4 mg/dL (0.00-1.00); Blood Urea Nitrogen 10 mg/dL (7-18); Calcium 8.5 mg/dL (8.5-10.1); Carbon Dioxide 26 mmol/L (21-32); Chloride 104 mmol/L (98-108); Estimated Glomerular Filt Rate > 60; Glucose 108 mg/dL (70-99); Lymphocytes Absolute Manual 0.34 K/mm3 (1.1-4.5); Lymphocytes Percent Manual 2 % (18-44); Magnesium 1.6 mg/dL (1.8-2.4); Neutrophils Absolute Manual 16.51 K/mm3 (1.7-7.2); Neutrophils Percent Manual 96 % (46-73); Osmolality Calculated 286 mOsm/kg (285-295); Potassium 3.9 mmol/L (3.5-5.1); Sodium 138 mmol/L (136-145); Total Cells Counted 100; Total Protein 6.8 g/dL (6.4-8.2)
[2023-08-03 16:09] LABS: Monocytes Absolute Manual 0.34 K/mm3 (0.1-0.90); Monocytes Percent Manual 2 % (3-9); Platelet Estimate Adequate (Adequate)
[2023-08-03 16:15] VITALS: RESP 20; O2SAT 98
[2023-08-03 16:15] LABS: Schistocytes None Seen (NORMAL)
[2023-08-03 16:16] VITALS: BP 135/74; RESP 20; TEMP 36.7; O2SAT 98
[2023-08-03 16:22] LABS: HIV 1 P24 AG Negative (Negative); HIV 1/2 AB Negative (Negative)
--- NOTE | 2023-08-03 16:56 | PC.NURSE ---
assisted doctor with assessment
== END 2023-08-03 16:30 | disposition home or self-care (01) ==
PROVIDERS: Emergency Provider Emergency Medicine
DX: O26.891 Other specified pregnancy related conditions, first trimester (principal); E83.42 Hypomagnesemia; Z87.891 Personal history of nicotine dependence; Z3A.11 11 weeks gestation of pregnancy
CPT/HCPCS: 36415; 80053; 83735; 85025; 87806; 96361; 96374; 99284; J2765; J7030

== ENCOUNTER 2023-09-24 14:23 | Emergency (ER) | payer OTHER, SELFPAY ==
[2023-09-24 14:23] VITALS: BP 129/75; PULSE 105; RESP 18; TEMP 36.7; O2SAT 98
--- NOTE | 2023-09-24 14:30 | ED.GENADULT ---
HPI - General Adult General Chief complaint: Upper Respiratory Infection Stated complaint: covid exposure and congestion Time Seen by Provider: 09/24/23 14:29 History of Present Illness HPI narrative: Patient is a 23 year old female, currently 18 weeks here with nasal congestion. Patient notes that she has had nasal congestion for about 3 days. Denies associated cough, chest pain, shortness of breath. She was sent in by her employer for testing. She is unsure if she has any sick contacts. She is only feels occasional movement at this gestational age but denies contractions, abdominal pain, vaginal bleeding, leakage of fluids. Related Data Home Medications Medication Instructions Recorded Confirmed No Home Medications 09/24/23 09/24/23 Allergies Allergy/AdvReac Type Severity Reaction Status Date / Time cephalexin Allergy Swelling Verified 09/24/23 14:33 of the Eye fentanyl Allergy Other Verified 09/24/23 14:33 Review of Systems Review of Systems: All systems reviewed & are unremarkable except as noted in HPI and below PMFSH Past Medical History Medical History Hematemesis/vomiting blood IUP (intrauterine ), incidental Kidney stone Miscarriage Obesity (BMI 30-39.9) Surgical History Surgical History H/O dilation and curettage X 2 Family History Family History Grandparent Kidney stone Social History Social History Social History: Independent Smoking packs per day: 0.1 Smoking cigarettes per day: 2.0 Years smoked: 11 Smoking pack-years: 1.10 Smoking status: Former smoker Tobacco type: e-cigarettes/vaping Second hand tobacco smoke exposure: Yes Alcohol intake: never Substance use: never Lack of Transportation: No Lack of Food: Never True Current Housing: I Have Housing Concerned About Future Housing: No Difficulty Paying Gas/Electric Bills: No Difficulty Paying for Meds: No Currently Unemployed: YES Education: High School Diploma/GED Difficulty w/ Childcare or Family Care: No Spiritual care concerns: No Exam Narrative: GENERAL: Well-appearing, well-nourished, and in no acute distress. HEAD: Normocephalic, atraumatic. EYES: PERRLA and EOMI. ENT: Nares clear. Mucous membranes moist. NECK: Supple. CHEST: Clear to auscultation. No respiratory distress. HEART: Regular rate and rhythm. Normal peripheral pulses. ABDOMEN: Soft, nontender, gravid abdomen EXTREMITIES: Normal range of motion. No edema. SKIN: Warm, dry, no rash. NEURO: No focal deficits. Alert and oriented x3. PSYCH: Normal mood and affect. Course Course Emergency Course: Chart review performed. Patient here for congestion, COVID exposure. Triage vitals grossly normal. Last ED visit note reviewed from July when she was seen for nausea, vomiting and diarrhea. She was 11 weeks at that time. FHT here are 150. Patient seen evaluated, nontoxic appearing. Isolated nasal congestion, here for work required nasal swab. Will do COVID, influenza, RSV. Do not feel any additional testing required at this time. COVID, influenza, RSV negative. Patient will be provided with work note saying that she is negative for swabs. The results of pertinent diagnostic studies and exam findings were discussed. The patient?s provisional diagnosis and plan of care were discussed with the patient and present family. The patient and/or present family expressed understanding of the diagnosis and plan. The nurse was instructed to provide written instructions and appropriate follow-up information. The patient understands their need and responsibility to obtain additional follow-up as instructed. The risks of medications administered and prescribed were discussed with pretty
[2023-09-24 15:15] LABS: Influenza A QL RT-PCR Negative (Negative); Influenza B QL RT-PCR Negative (Negative); RSV RNA, RT-PCR Negative (Negative); SARS-CoV-2 RNA PCR Negative (Negative)
[2023-09-24 15:33] VITALS: BP 128/70; PULSE 102; RESP 18; O2SAT 99
== END 2023-09-24 15:33 | disposition home or self-care (01) ==
PROVIDERS: Emergency Provider Student in an Organized Health Care Education/Training Program
DX: O26.892 Other specified pregnancy related conditions, second trimester (principal); B34.9 Viral infection, unspecified; R09.81 Nasal congestion; Z87.891 Personal history of nicotine dependence; Z3A.18 18 weeks gestation of pregnancy; Z20.822 Contact with and (suspected) exposure to COVID-19
CPT/HCPCS: 87637; 99283

== ENCOUNTER 2024-02-02 10:45 | Emergency (ER) | payer OTHER, SELFPAY ==
[2024-02-02 10:55] VITALS: O2SAT 99
[2024-02-02 11:02] VITALS: BP 124/78; PULSE 94; RESP 16; TEMP 36.4; O2SAT 99
[2024-02-02 11:34] LABS: Strep Group A RT-PCR NOT DETECTED (Negative)
[2024-02-02 11:45] LABS: SARS-CoV-2 RNA PCR Negative (Negative)
[2024-02-02 11:46] LABS: Influenza A QL RT-PCR Negative (Negative); Influenza B QL RT-PCR Negative (Negative); RSV RNA, RT-PCR Negative (Negative)
--- NOTE | 2024-02-02 11:54 | ED.URI ---
HPI - URI/Sore Throat General Chief Complaint: Upper Respiratory Infection Stated Complaint: cough Time Seen by Provider: 02/02/24 10:49 Source: patient Mode of arrival: ambulatory Limitations: no limitations History of Present Illness HPI Narrative: patient here with 23-year-old female with cough and clear nasal discharge with no shortness of breath no audible wheezing no fever chills abdominal pain no chest pain. MD elicited complaint: cough Onset (ago): day(s) Consistency: constant Severity: mild Related Data Home Medications Medication Instructions Recorded Confirmed No Home Medications 09/24/23 02/02/24 Allergies Allergy/AdvReac Type Severity Reaction Status Date / Time cephalexin Allergy Swelling Verified 02/02/24 11:29 of the Eye fentanyl Allergy Other Verified 02/02/24 11:29 Review of Systems Review of Systems: All systems reviewed & are unremarkable except as noted in HPI and below PMFSH Past Medical History Medical History Hematemesis/vomiting blood IUP (intrauterine ), incidental Kidney stone Miscarriage Obesity (BMI 30-39.9) Surgical History Surgical History H/O dilation and curettage X 2 Family History Family History Grandparent Kidney stone Social History Social History Social History: Independent Smoking packs per day: 0.1 Smoking cigarettes per day: 2.0 Years smoked: 11 Smoking pack-years: 1.10 Smoking status: Former smoker Tobacco type: e-cigarettes/vaping Second hand tobacco smoke exposure: Yes Alcohol intake: never Substance use: never Lack of Transportation: No Lack of Food: Never True Current Housing: I Have Housing Concerned About Future Housing: No Difficulty Paying Gas/Electric Bills: No Difficulty Paying for Meds: No Currently Unemployed: YES Education: High School Diploma/GED Difficulty w/ Childcare or Family Care: No Spiritual care concerns: No Exam Const: General: healthy appearing and no acute distress Nutritional Appearance: well nourished Orientation/consciousness: patient oriented x3 HENMT: Head: normal to inspection Eyes: Conjunctivae: conjunctivae normal Chest: Chest palpation & inspection: normal inspection of the chest Resp: Effort & Inspection: normal respiratory effort Auscultation: clear to auscultation bilaterally Cardio: Rate: regular rate Rhythm: regular rhythm Skin: General skin exam: normal color Rashes: no rashes Extrem: General: normal to inspection Psych: Mental Status: mental status grossly normal Course Course Emergency Course: COVID RSV influenza and strep all negative. Vital Signs Vital signs: Vital Signs Pulse Oximetry 99 02/02/24 10:55 Oxygen Delivery Room Air 02/02/24 10:55 Temperature 36.4 C L 02/02/24 11:02 Pulse Rate 94 02/02/24 11:02 Respiratory Rate 16 02/02/24 11:02 Blood Pressure 124/78 02/02/24 11:02 Pulse Oximetry 99 02/02/24 11:02 Oxygen Delivery Room Air 02/02/24 11:02 MDM - URI/Sore Throat Lab Data Labs: Lab Results 02/02/24 Range/Units 10:49 Influenza A (RT-PCR) Negative (Negative) Influenza B (RT-PCR) Negative (Negative) RSV (RT-PCR) Negative (Negative) SARS-CoV-2 RNA (RT-PCR) Negative (Negative) Group A Strep (PCR) Not detected (Negative) Critical Care Time Critical Care Time Critical Care Time: No Discharge Plan Discharge Clinical Impression: Viral infection Patient Disposition: Home, Self-Care Condition: Stable Instructions: Antibiotic Form, Viral Syndrome (ED) Additional Instructions: Advised Tylenol as needed and if symptoms persist or worsen should follow with primary. Prescriptions: No Action No Home Me
== END 2024-02-02 11:54 | disposition home or self-care (01) ==
PROVIDERS: Emergency Provider Emergency Medicine; PCP Obstetrics & Gynecology
DX: B34.9 Viral infection, unspecified (principal); Z20.822 Contact with and (suspected) exposure to COVID-19; Z87.891 Personal history of nicotine dependence
CPT/HCPCS: 87637; 87651; 99283

== ENCOUNTER 2024-02-04 15:52 | Inpatient (IN) | payer OTHER, SELFPAY ==
[2024-02-04] VITALS (67 sets, daily range): BP systolic 101–151; BP diastolic 57–102; PULSE 74–124; TEMP 36.9–37.1; O2SAT 94–100; BMI 38.7
--- NOTE | 2024-02-04 16:18 | PC.NURSE ---
1552: Patient presents to L&D unit with complaints of leaking fluid for 3-4 days. ROM+ test performed. ROM+ test resulted positive. 1608: Called Dr. Almazan. Notified of SROM at unknown date/time and cervical exam. Verbal orders received to admit patient to L&D.
--- NOTE | 2024-02-04 16:41 | LDADM ---
This patient, Valentino Yan, was admitted to Labor/Delivery/Recovery 104 on 02/04/24 at 15:52. Plans for labor, pain management and were discussed with patient. Patient/family oriented to hospital policies and general routines including ID bracelet, bed and alarms, visiting hours, pain management, procedures, bathroom and other care routines, personal items, smoking policy, room service/diet and guest tray routines, security routines, and visiting hours. Patient/Family are encouraged to report perceived risks to care and to ask questions if they do not understand what they are told or what they should do. See OBIX for further documentation.
[2024-02-04 16:42] LABS: Basophils Percent Auto 0.3 % (0.2-1.2); Eosinophils Percent Auto 0.2 % (0-4.4); Hematocrit 31.9 % (37.0-47.0); Hemoglobin 9.9 g/dL (12.0-15.0); Immature Granulocyte Absolute 0.07 K/mm3 (0.00-0.031); Immature Granulocyte Percent A 0.6 % (0-0.5); Immature Platelet Fraction Pct 8.3 % (0.9-11.2); Lymphocytes Absolute Auto 1.13 K/mm3 (0.9-3.2); Lymphocytes Percent Auto 9.3 % (18.3-44.2); Mean Corpuscular Hemoglobin 23.4 pg (26-34); Mean Corpuscular Volume 75.4 fl (80-100); Mean Platelet Volume 11.6 fl (7.4-10.4); Monocytes Absolute Auto 0.8 K/mm3 (0.1-0.6); Monocytes Percent Auto 6.2 % (2.6-8.5); Neutrophils Absolute Auto 10.2 K/mm3 (1.3-6.7); Neutrophils Percent Auto 83.4 % (45.5-73.1); Platelet Count Result 180 k/mm3 (150-375); Red Blood Count 4.23 M/mm3 (4.2-5.4); Red Cell Distribution Width 16.1 % (11.5-14.5); White Blood Count 12.2 K/mm3 (4.5-10.0)
[2024-02-04] MEDS: LACTATED RINGERS 1,000 ML 125 ML IV CONT ×2 (16:50→20:36)
[2024-02-04] MEDS: AMPICILLIN 2 GM/NS 100 ML 2 GM/100 ML BAG IVPB (16:50)
[2024-02-04] MEDS: OXYTOCIN 30 UNITS/NS 500 ML 30 UNITS/500 ML BAG IV CONT (16:54)
[2024-02-04 17:41] LABS: Anisocytosis 2+; Platelet Estimate Adequate (Adequate); Schistocytes None Seen
[2024-02-04 17:42] LABS: Hypochromasia 1+
--- NOTE | 2024-02-04 17:52 | WPDANESEPP ---
Anes - Eval Pre Procedure Procedure: Labor epidural Date/Time: 02/04/24 17:52 Preop Diagnosis: pain during labor Pre Op Diagnosis: Ruptured-Labor Patient Data Age: 23 Gender: F Height: 1.55 m Weight: 93 kg Last Vital Signs Temp 36.9 C 02/04/24 16:24 Pulse 105 H 02/04/24 17:45 BP 122/81 02/04/24 17:45 O2 Del Method Room Air 02/04/24 16:38 Allergies Allergy/AdvReac Type Severity Reaction Status Date / Time fentanyl Allergy Severe Other Verified 02/04/24 16:36 cephalexin Allergy Swelling Verified 02/04/24 16:36 of the Eye Home Medications Medication Instructions Recorded Confirmed Type vit#24-iron amino acid 1 tablet PO DAILY 02/04/24 02/04/24 History chelat-folic acid 30 mg-975 mcg tablet Laboratory Tests 02/04/24 16:35 WBC 12.2 H K/mm3 (4.5-10.0) RBC 4.23 M/mm3 (4.2-5.4) Hgb 9.9 L g/dL (12.0-15.0) Hct 31.9 L % (37.0-47.0) MCV 75.4 L fl (80-100) MCH 23.4 L pg (26-34) MCHC 31.0 L g/dl (32-36) RDW 16.1 H % (11.5-14.5) Plt Count 180 k/mm3 (150-375) MPV 11.6 H fl (7.4-10.4) Immature Gran % (Auto) 0.6 H % (0-0.5) Neut % (Auto) 83.4 H % (45.5-73.1) Lymph % (Auto) 9.3 L % (18.3-44.2) Turner % (Auto) 6.2 % (2.6-8.5) Eos % (Auto) 0.2 % (0-4.4) Baso % (Auto) 0.3 % (0.2-1.2) Lymph # (Auto) 1.13 K/mm3 (0.9-3.2) Turner # (Auto) 0.8 H K/mm3 (0.1-0.6) Eos # (Auto) 0.0 K/mm3 (0-0.3) Baso # (Auto) 0.0 K/mm3 (0.0-0.1) Abs Immat Gran (auto) 0.07 H K/mm3 (0.00-0.031) Absolute Neuts (auto) 10.2 H K/mm3 (1.3-6.7) Absolute Nucleated RBC 0.000 K/mm3 (0.0-0.012) Nucleated RBC % 0.0 % (0.0-0.2) Platelet Estimate Adequate (Adequate) % Immature Plt Fraction 8.3 % (0.9-11.2) Hypochromasia 1+ Anisocytosis 2+ Schistocytes None seen RPR Pending Patient hx anesthesia problems: none Family hx anesthesia problems: none Results Review: All pre-operative results and documents have been reviewed as part of the pre-operative evaluation. [facility] Past Medical History Medical History Hematemesis/vomiting blood IUP (intrauterine ), incidental Kidney stone Miscarriage Obesity (BMI 30-39.9) Surgical History Surgical History H/O dilation and curettage X 2 Family History Family History Grandparent Kidney stone Social History Social History Social History: Independent Smoking packs per day: 0.1 Smoking cigarettes per day: 2.0 Years smoked: 11 Smoking pack-years: 1.10 Smoking status: Current every day smoker Tobacco type: e-cigarettes/vaping Second hand tobacco smoke exposure: Yes Alcohol intake: never Substance use: current Do You Feel Safe in your Home?: Yes Lack of Transportation: No Lack of Food: Sometimes True Current Housing: I Have Housing Concerned About Future Housing: No Difficulty Paying Gas/Electric Bills: No Difficulty Paying for Meds: No Currently Unemployed: No Education: High School Diploma/GED Difficulty w/ Childcare or Family Care: No Spiritual care concerns: No Exam Day of Procedure 02/04/24 17:52
--- NOTE | 2024-02-04 18:51 | WPDHPUPDATE1 ---
History and Physical Update Update Date/Time: 02/04/24 18:51 23-year-old multiparous female at term who presents with rupture membranes. She has been augmented with Pitocin. Her cervix is 3 cm. Her heart tracing shows reassuring status. Expectant management. History and Physical has been reviewed, including an updated exam of the patient. There are NO changes in the patient's condition. Risks, benefits, and alternatives have been discussed and questions answered. Patient agrees to proceed with procedure.
[2024-02-04 20:33] LABS: Amphetamine Screen Urine Negative (Negative); Barbiturate Screen Urine Negative (Negative); Benzodiazepines Screen Urine Negative (Negative); Cannabinoid Screen Urine Positive (Negative); Cocaine Screen Urine Negative (Negative); Methadone Screen Urine Negative (Negative); Opiate Screen Urine Negative (Negative); Phencyclidine Screen Urine Negative (Negative)
[2024-02-04] MEDS: AMPICILLIN 1 GM/NS 50 ML 1 GM/50 ML BAG IVPB (20:36)
[2024-02-04] MEDS: ONDANSETRON INJ 4 MG/2 ML VIAL IV PUSH (23:04)
[2024-02-05] VITALS (13 sets, daily range): BP systolic 114–142; BP diastolic 40–89; PULSE 80–99; RESP 16–18; TEMP 37.1–37.3; O2SAT 97–99
--- NOTE | 2024-02-05 00:02 | PM.OBPRVD ---
OB - Vaginal Delivery Note Procedure Delivery date: 02/05/24 Induction method: None Delivery augmentation: Pitocin Delivery monitor: External FHT and External Uterine Route of delivery: Episiotomy description: None Laceration Description: Perineal - 2nd Degree Delivery repair: vicryl Quantitative Blood Loss (ml): 250 Anesthesia type: Epidural Disposition: Floor Baby Date of : 02/05/24 Time of : 23:46 Weeks of gestation at delivery: 39
[2024-02-05] MEDS: OXYTOCIN 30 UNITS/NS 500 ML 30 UNITS/500 ML BAG 125 UNITS IV CONT (00:20)
[2024-02-05] MEDS: ACETAMINOPHEN 325 MG TABLET 650 MG PO ×2 (01:00→20:54)
[2024-02-05] MEDS: BENZOCAINE 20% AER SPR (*SP) 56 GM CAN 1 SPRAY TOPICAL (01:00)
[2024-02-05] MEDS: WITCH HAZEL 40 PADS 1 PAD TOPICAL (01:00)
--- NOTE | 2024-02-05 08:49 | WPDANLDPN2 ---
Anes-Prog Note L&D Date/Time: 02/05/24 08:49 Comfortable throughout: labor and delivery Neuraxial method: epidural Epidural/Spinal procedure site: clean & non-tender Neuro status: Neuro function grossly intact. Cardiovascular status: normal Respiratory status: normal Airway patency: baseline Mental status: baseline Post-Op hydration status: normal Vital Signs: Last Vital Signs Temp 37.1 C 02/05/24 02:15 Pulse 85 02/05/24 02:15 Resp 18 02/05/24 02:15 BP 121/68 02/05/24 02:15 Pulse Ox 97 02/05/24 02:15 O2 Del Method Room Air 02/05/24 02:15 Pain score (VAS): 09/26 I/O: Intake & Output 02/04/24 02/05/24 02/05/24 23:59 07:59 15:59 Intake Total 470.8 Output Total 250 Balance 470.8 -250 Post-procedural complaints: none Patient feedback: Patient satisfied with anesthetic care.
[2024-02-05] MEDS: DOCUSATE SODIUM 100 MG CAPSULE PO ×2 (09:54→17:53)
[2024-02-05] MEDS: IBUPROFEN 600 MG TABLET PO ×2 (09:54→17:53)
[2024-02-05] MEDS: POLYSACCHARIDE IRON COMPLEX 150 MG CAPSULE PO ×2 (09:54→17:53)
--- NOTE | 2024-02-05 10:26 | PCCCNOTE ---
Addendum entered by ITALO Gautam 02/05/24 11:47: CANTS Form #5 completed and mailed to [facility]. Original Note: Consult received for mother Valentino Yan tested positive for cocaine early in along with THC. Met with mother Valentino and father Bowen at bedside. Per mother they also have one other child Piyush who is one year old and currently being taken care of by her grandfather. Valentino confirmed she has smoked marijuana this whole , but was surprised about testing positive for cocaine at her apt with Dr. Almazan which was on 08/07/23. Per Valentino she has not done cocaine in 5 years. Valentino confirmed they have an apartment they stay in (planning on moving in a couple weeks else where). Valentino reported their home is safe, but the neighbors downstairs are junkies . Valentino and Bowen are aware that [facility] will be contact regarding positive screens. Spoke with CHARAN Katz who confirmed we are waiting on the test results from Baby Girl's urine and cord. [facility] was contacted spoke with take worker Janell Oconnor and ID#[id number]. Per Janell Oconnor due to THC now being legal they do offer a welfare check and they will follow up with family at that time. Per Janell Oconnor we are to call back if the cord sample and urine test positive. Awaiting results at this time.
[2024-02-05 13:43] LABS: Rapid Plasma Reagin Non-Reactive (NonReactive)
[2024-02-06 04:00] VITALS: BP 117/64; PULSE 94; RESP 18; TEMP 37.3
[2024-02-06 05:07] LABS: Hematocrit 26.9 % (37.0-47.0); Hemoglobin 8.4 g/dL (12.0-15.0)
[2024-02-06] MEDS: POLYSACCHARIDE IRON COMPLEX 150 MG CAPSULE PO (07:26)
[2024-02-06] MEDS: DOCUSATE SODIUM 100 MG CAPSULE PO (07:27)
[2024-02-06 07:30] VITALS: BP 120/62; PULSE 73; RESP 16; TEMP 36.9; O2SAT 100
--- NOTE | 2024-02-06 09:47 | PCCCNOTE ---
Received call from Francia Hart [phone] who confirmed when pt. is DC back home with baby she will do a welfare check. No investigation needed per DCFS. CANTS Form 5 was still sent yesterday. Francia ruiz CC will call back once results are back for cord and urine.
--- NOTE | 2024-02-06 12:22 | PM.OBPNVD ---
OB - PN: Subj Subjective Date/time seen: 02/06/24 12:22 Patient comments: no complaints, pain well controlled and tolerating diet OB - PN: Obj Data Labs 02/06/24 04:47 Labs: Laboratory Results - last 24 hr 02/04/24 02/06/24 16:35 04:47 Hgb 8.4 L Hct 26.9 L RPR Non-reactive OB - PN A/P Plan day: 2 Plan: routine care and discharge home Time Spent With Patient Time: Total time spent is greater than 50% in coordination of care (as documented) at patient's floor/unit and/or counseling patient: Exam Const: General: comfortable and no acute distress Resp: Effort & Inspection: normal respiratory effort Auscultation: no rales, no rhonchi and no wheezes Cardio: Rate: regular rate Heart sounds: no click, no murmurs and no rubs GI: GI Palp: Yes Soft to palpation and No Tenderness to palpation present (GI) Auscultation: normal bowel sounds Extrem: General: normal to inspection, no pedal edema and no calf tenderness
--- NOTE | 2024-02-06 12:23 | PM.OBDSVD ---
DS: Admitting Diagnosis Discharge Date February 06, 2024 Admitting Diagnosis term , labor DS: Discharge Diagnosis Discharge Diagnosis (1) Post term , delivered: Code(s): O48.0 - Post-term Status: Acute OB - DS: Summary OB Procedures : None OB Procedures Intrapartum: Spontaneous Vag Delivery OB Procedures: : None Peripartum Data Laceration Description: Perineal - 2nd Degree Episiotomy description: None Time Spent with Patient Time attestation: Total time spent providing and/or coordinating discharge services: DS: Data Data Completed and Pending Labs on day of discharge: Labs from last 24 hours 02/06/24 02/04/24 04:47 16:35 Hgb 8.4 L Hct 26.9 L RPR Non-reactive Discharge Plan Discharge Discharging Clinician: Anil Almazan Patient Disposition: Home, Self-Care Activity: pelvic rest Diet: regular Patient Instructions: Antibiotic Form Stand Alone Forms: General Discharge Information Follow-up/Referrals: Anil Almazan MD [Primary Care Provider] - Discharge Medications: Continued Complete 30-975 mg-mcg Tablet 1 tablet PO DAILY Date of admission: 02/04/24 15:52 Primary Care Provider: Anil Almazan Admitting Provider: Anil Almazan Attending physician on admission: Anil Almazan Condition: Stable
[2024-02-07 08:55] VITALS: BP 127/77; PULSE 74; RESP 16; TEMP 36.6; O2SAT 99
[2024-02-07 09:04] VITALS: BP 125/89; PULSE 75; RESP 18; TEMP 36.8; O2SAT 99
--- NOTE | 2024-02-12 14:59 | PCCCNOTE ---
Mental Health Worker checked back for results for pt.'s baby girl's screening for urine and cord and both were negative/not detected for drugs.
== END 2024-02-06 13:04 | disposition home or self-care (01) | DRG 560 ==
LOC: ANHLDR 16:18 → ANHOB2 02-05 02:22
PROVIDERS: Admitting Provider Obstetrics & Gynecology; PCP Obstetrics & Gynecology; Visit Provider Obstetrics & Gynecology
DX: O42.92 Full-term premature rupture of membranes, unspecified as to length of time between rupture and onset of labor (principal); Z37.0 Single live birth; Z3A.39 39 weeks gestation of pregnancy; O70.1 Second degree perineal laceration during delivery
CPT/HCPCS: 36415; 80307; 84112; 85014; 85018; 85025; 85055; 86592; 86850; 86900; 86901; A9270; J0290; J2405; J2590; J2795; J7120

== ENCOUNTER 2024-04-08 08:21 | Emergency (ER) | payer OTHER, SELFPAY ==
--- NOTE | ~2024-04-08 | CT_ITS ---
CT abdomen pelvis wo con Ordering provider: Jr Lynch MD History: 23 years Female with . LLQ pain, hx of kidney stones . Comparison: April 07, 2022 Technique: CT abdomen and pelvis without IV and without oral contrast. Automated exposure control and iterative reconstruction technique were employed. The dose-length product was 678.00 mGy-cm. Findings: VISUALIZED LOWER CHEST: Normal. UPPER ABDOMINAL ORGANS: Liver: Hepatomegaly. Gallbladder: Normal. Spleen: Normal. Stomach/duodenum: Normal. Pancreas: Normal. Adrenals: Normal. Kidneys: Possible duplicated system on the left side. PELVIC ORGANS: The bladder shows a large stone measuring 1.6 x 1.4 cm. Uterus: Normal. Right ovarian cyst measuring 3 cm. BOWEL AND MESENTERY: Colon: No evidence of diverticulitis. Normal appendix. Small Bowel: Normal. No obstruction. Peritoneum/mesentery: No free air or free fluid. No mesenteric lymphadenopathy. RETROPERITONEUM: Normal aorta. No retroperitoneal lymphadenopathy. MUSCULOSKELETAL: Superficial soft tissues: The superficial soft tissues are normal. Bones: Normal spine. IMPRESSION: 1. Large stone in the urinary bladder. 2. Highly suggestive left duplicated kidney system. 3. Right ovarian cyst. 4. Hepatomegaly. Reviewed, dictated and finalized at location A.
[2024-04-08 08:25] VITALS: BP 132/83; PULSE 94; RESP 16; TEMP 36.4; O2SAT 99
--- NOTE | 2024-04-08 08:39 | ED.GENADULT ---
HPI - General Adult General Chief complaint: Urogenital-Female Stated complaint: kidney stones Time Seen by Provider: 04/08/24 08:39 The patient is a 23-year-old woman with history of kidney stones, 6 prior episodes, most recently 06/23/2022, which required extraction with cystoscopy on the most recent episode. SAB 2, last menstrual period ended yesterday. She has chronic urinary urgency from childbirth. She presents with onset of symptoms since 7:00 a.m. today of urinary frequency, dysuria, and hematuria. She does have chronic urinary urgency. She had no hematuria yesterday with her menstrual cycle but the hematuria started today and she has no longer any vaginal bleeding. The pain is constant, increasing in intensity, associated with an episode of nausea while she was giving a urine specimen in the emergency room but no vomiting. She has painin the left flank radiates to the left lower back but it does not radiate to the abdomen at this point. Normal bowel movements. No fevers or chills. No URI symptoms. History of Present Illness HPI narrative: The patient is a 57-year-old woman with history of hypertension, TIA, anxiety, and gout. She was on a car ride from 3 hours away and not taken her blood pressure medication yet, triamterene hydrochlorothiazide. She checked her blood pressure when she got home, 150/106 she took a dose of her blood pressure medication. She also had a slight headache, so she took a dose of Aleve. Lower later, she recheck her blood pressure. 160/94, so she took a 2nd dose of her triamterene hydrochlorothiazide blood pressure lowering medication. She is concerned that she is having a mini-stroke. She has no stroke like symptoms. Her headache is nearly resolved. She still feels that her head is full. She is a bit anxious. No chest pain or discomfort. No dyspnea. No nausea or vomiting. No diplopia. No blurred vision. No vertigo. No dizziness. Related Data Allergies Allergy/AdvReac Type Severity Reaction Status Date / Time fentanyl Allergy Severe Other Verified 04/08/24 08:32 cephalexin Allergy Swelling Verified 04/08/24 08:32 of the Eye Review of Systems Review of Systems: All systems reviewed & are unremarkable except as noted in HPI and below Constitutional: Constitutional: Denies chills, Denies excessive sweating, Denies fatigue, Denies fever(s), Denies headache(s) and Denies weakness Eyes: Eyes: Denies change in vision and Denies photophobia ENT: Denies dysphagia, Denies dizziness, Denies headache(s), Denies lip swelling, Denies nasal congestion, Denies sore throat and Denies tongue swelling Cardiovascular: Cardiovascular: Denies chest pain, Denies syncope, Denies rapid heart rate and Denies dyspnea Respiratory: Respiratory: Denies cough, Denies dyspnea and Denies wheezing Gastrointestinal: Gastrointestinal: Reports abdominal pain, Denies constipation, Denies dysphagia, Denies diarrhea, Reports nausea and Denies vomiting Genitourinary: Genitourinary: Reports hematuria, Denies urinary frequency, Reports nocturia, Reports dysuria and Reports urinary urgency ( chronic) Musculoskeletal: Musculoskeletal: Denies back pain, Denies myalgias, Denies arthralgias, Denies joint swelling and Denies numbness Integumentary/Breasts: Skin/Breast: Denies pruritus, Denies erythema and Denies rash Neurologic: Denies confusion, Denies dizziness, Denies syncope, Denies headache(s), Denies focal weakness, Denies numbness and Denies weakness Psychiatric: Psychiatric: Denies anxiety and Denies confusion Endocrine: Endocrine: Denies excessive sweating and Denies fatigue Hematologic/Lymphatic: Hematologic/Lymphatic: Denies easy bleeding and Denies easy bruising Allergic/Immunologic: Allergic/Immunologic: Denies lip swelling, Denies tongue swelling and Denies wheezing PMFSH Past Medical History Medical History Hematemesis/vomiting blood IUP (intraut
[2024-04-08 09:05] LABS: Basophils Absolute Auto 0.06 K/mm3 (0.00-0.10); Basophils Percent Auto 0.7 % (0.0-1.0); Eosinophils Absolute Auto 0.06 K/mm3 (0.02-0.50); Eosinophils Percent Auto 0.7 % (1.0-6.0); Hematocrit 36.8 % (35.0-49.0); Hemoglobin 11.7 g/dL (12.0-15.0); Immature Granulocyte Absolute 0.02 K/mm3 (0.00-0.00); Immature Granulocyte Percent A 0.2 % (0.0-0.0); Lymphocytes Absolute Auto 1.36 K/mm3 (1.10-4.50); Lymphocytes Percent Auto 16.3 % (18.0-42.0); Mean Corpuscular HGB Conc 31.8 g/dL (32-36); Mean Corpuscular Hemoglobin 23.7 pg (27.0-31.0); Mean Corpuscular Volume 74.6 fL (78.0-102.0); Mean Platelet Volume 10.8 fl (9.2-11.8); Monocytes Absolute Auto 0.55 K/mm3 (0.10-0.90); Monocytes Percent Auto 6.6 % (2.0-11.0); Neutrophils Percent Auto 75.5 % (50.0-70.0); Platelet Count Result 249 K/mm3 (150-420); Red Blood Count 4.93 M/mm3 (4.20-5.40); Red Cell Distribution Width 16.1 % (11.6-14.4); White Blood Count 8.4 K/mm3 (4.8-10.8)
[2024-04-08 09:06] LABS: Appearance Urine Clear (Clear); Bilirubin Urine Negative (Negative); Blood Urine 2+ (Negative); Color Urine Light Yellow (Yellow); Glucose Urine UA Negative (Negative); Ketones Urine Negative (Negative); Leukocyte Esterase Ur 2+ LEU/UL (Negative); Nitrate Urine Negative (Negative); Protein Urine Negative (Negative); Specific Grav Ur 1.015 (1.010-1.020); Urobilinogen Urine 0.2 mg/dL (0.2-1.0); pH Urine 6.5 (5.0-8.0)
[2024-04-08] MEDS: SODIUM CHLORIDE 0.9% IV 1,000 ML 999 ML IV CONT (09:11)
[2024-04-08] MEDS: ONDANSETRON INJ 4 MG/2 ML VIAL IV PUSH (09:11)
[2024-04-08] MEDS: KETOROLAC 30 MG/ML VIAL (*BKC) IV PUSH (09:12)
[2024-04-08] MEDS: TAMSULOSIN HCL 0.4 MG CAPSULE PO (09:12)
[2024-04-08 09:15] LABS: Pregnancy On Board Control Positive; Urine Pregnancy Test Negative
[2024-04-08 09:16] LABS: Add Urine Microscopic? YES
[2024-04-08 09:17] LABS: Bacteria Urine Trace /hpf; Squamous Epithelial Cell Urine Few /hpf (Few)
[2024-04-08 09:22] LABS: Alanine Aminotransferase 29 U/L (14-59); Albumin Level 3.3 g/dL (3.4-5.0); Alkaline Phosphatase 144 U/L (46-116); Amylase 34 U/L (25-115); Anion Gap 12 mmol/L (4-12); Aspartate Amino Transferase 18 U/L (15-37); Bilirubin,Total 0.2 mg/dL (0.00-1.00); Blood Urea Nitrogen 9 mg/dL (7-18); Carbon Dioxide 24 mmol/L (21-32); Chloride 105 mmol/L (98-108); Estimated CRCL calculation 94 ml/min; Estimated Glomerular Filt Rate > 60; Glucose 94 mg/dL (70-99); Lipase 14 U/L (16-77); Osmolality Calculated 290 mOsm/kg (285-295); Potassium 4.2 mmol/L (3.5-5.1); Sodium 141 mmol/L (136-145); Total Protein 6.9 g/dL (6.4-8.2)
[2024-04-08 09:26] LABS: Calcium 8.8 mg/dL (8.5-10.1)
[2024-04-08 10:00] VITALS: BP 118/69; PULSE 87; RESP 16; TEMP 36.9; O2SAT 100
--- NOTE | 2024-04-08 10:13 | PC.NURSE ---
Pt ambulated to restroom.
[2024-04-08] MEDS: SULFAMETHOXAZOLE/TRIMETHOPRIM 800/160 MG DS TABLET 1 TAB PO (10:58)
[2024-04-08] MEDS: MORPHINE SULFATE (*CRX) 4 MG/ML INJ IV PUSH (10:58)
[2024-04-08 11:10] VITALS: BP 118/71; PULSE 80; RESP 16; TEMP 36.8; O2SAT 99
--- NOTE | 2024-04-10 12:15 | PC.NURSE ---
Final urine culture report: No growth, No further treatment or action needed.
== END 2024-04-08 11:10 | disposition home or self-care (01) ==
PROVIDERS: Emergency Provider Emergency Medicine
DX: N20.0 Calculus of kidney (principal); N39.0 Urinary tract infection, site not specified; R30.0 Dysuria; I10 Essential (primary) hypertension; F17.290 Nicotine dependence, other tobacco product, uncomplicated; Z86.73 Personal history of transient ischemic attack (TIA), and cerebral infarction without residual deficits; Z79.899 Other long term (current) drug therapy
CPT/HCPCS: 36415; 74176; 80053; 81001; 81025; 82150; 83690; 85025; 87086; 96361; 96374; 96375; 99284; A9270; J1885; J2270; J2405; J7030

== ENCOUNTER 2024-06-18 09:25 | Emergency (ER) | payer OTHER, SELFPAY ==
--- NOTE | ~2024-06-18 | CT_ITS ---
Non-contrast CT scan of the Abdomen and Pelvis Clinical indication: Bladder stone, hematuria Technique: 2.5 mm axial scans were obtained through the abdomen and pelvis without intravenous or or al contrast. Dose reduction technique was used on this scan by utilizing automated exposure control a nd iterative reconstruction technique. The dose-length product (DLP) was 776.35 mGy-cm. COMPARISON: 04/08/2024 Findings: Images through the lung bases reveal no abnormalities. There is no evidence of renal or ureteral calculi. The kidneys and the ureters are nondilated. Stable probable hepatomegaly. The spleen, pancreas, gallbladder, and adrenals appear normal. There i s no aortic aneurysm. There is no evidence of bowel obstruction. Images through the pelvis were performed. There is no evidence of ascites or lymphadenopathy. 16 mm u rinary bladder stone present. 5.4 x 2.8 cm right ovarian cyst present. Impression: Stable 16 mm urinary bladder stone. 5.4 x 2.8 cm right ovarian cyst. Stable probable hepatomegaly. Reviewed, dictated and finalized at location . Impression: Stable 16 mm urinary bladder stone. 5.4 x 2.8 cm right ovarian cyst. Stable probable hepatomegaly.
[2024-06-18 09:25] VITALS: BP 118/88; PULSE 72; RESP 16; TEMP 36.4; O2SAT 98
--- NOTE | 2024-06-18 09:37 | ED.FEMALEGU ---
HPI - Female Genitourinary General Chief complaint: Urogenital-Female Stated complaint: trouble urinating Time Seen by Provider: 06/18/24 09:30 Source: patient Mode of arrival: ambulatory Limitations: no limitations History of Present Illness HPI Narrative: 23-year-old female with a history of anxiety, gout, kidney stones presents to the ED with -- no urine output since 7:00 p.m. last night. No dysuria or hematuria. No fever or chills. No abdominal pain. Concerned that she has urinary tract infection. patient had a CT on 04/08/2024 which revealed the left C3 gated urinary system. It also revealed a 3 cm right ovarian cyst and a 1.6X1.4 cm size bladder stone. MD elicited complaint: other ( No urine output since 7:00 p.m. last night) Pertinent past history: other ( kidney stones) Onset (ago): day(s) ( 1 day) Vaginal discharge: none Possible : unsure if Related Data : 4 Para: 2 Allergies Allergy/AdvReac Type Severity Reaction Status Date / Time fentanyl Allergy Severe Other Verified 04/08/24 08:32 cephalexin Allergy Swelling Verified 04/08/24 08:32 of the Eye Review of Systems Review of Systems: All systems reviewed & are unremarkable except as noted in HPI and below PMFSH Past Medical History Medical History Hematemesis/vomiting blood IUP (intrauterine ), incidental Kidney stone Miscarriage Obesity (BMI 30-39.9) Surgical History Surgical History H/O dilation and curettage X 2 Family History Family History Grandparent Kidney stone Social History Social History Social History: Independent Smoking packs per day: 0.1 Smoking cigarettes per day: 2.0 Years smoked: 11 Smoking pack-years: 1.10 Smoking status: Current every day smoker Tobacco type: e-cigarettes/vaping Second hand tobacco smoke exposure: Yes Alcohol intake: never Substance use: current Do You Feel Safe in your Home?: Yes Lack of Transportation: No Lack of Food: Sometimes True Current Housing: I Have Housing Concerned About Future Housing: No Difficulty Paying Gas/Electric Bills: No Difficulty Paying for Meds: No Currently Unemployed: No Education: High School Diploma/GED Difficulty w/ Childcare or Family Care: No Spiritual care concerns: No Exam Narrative: blood pressure stable. Afebrile Const: General: no acute distress Nutritional Appearance: well nourished Orientation/consciousness: patient oriented x3 Limitations: no limitations HENMT: Head: normal to inspection Ears: external ears normal Face/Nose/Sinus: Normal external nose present Face and sinus: normal facial exam Mouth: Yes Normal oral and palatal mucosa present Throat: posterior oropharynx normal Eyes: Conjunctivae: conjunctivae normal Pupils: Equal, round and reactive pupils present EOM: EOMs intact bilaterally Direct Ophthalmoscopy: no photophobia Neck: Neck: normal visual inspection, no lymphadenopathy and no meningeal signs Chest: Chest palpation & inspection: normal inspection of the chest Resp: Effort & Inspection: normal respiratory effort Auscultation: clear to auscultation bilaterally Cardio: Rate: regular rate Rhythm: regular rhythm GI: GI Palp: Yes Soft to palpation Auscultation: normal bowel sounds Other: no tenderness/ rigidity /rebound : General: Yes bladder normal to palpation and Yes no CVA tenderness Back/Spine/Pelvis: Back: no CVA tenderness Skin: General skin exam: normal color Rashes: no rashes Neuro: General: patient oriented x3, moves all extremities, no meningeal signs, no focal motor deficits and CN's II-XI intact bilaterally Cranial nerves: Yes Nystagmus not present Speech: normal speech Gait exam (Neuro): Norm
[2024-06-18 09:44] LABS: Add Urine Microscopic? YES; Appearance Urine Cloudy (Clear); Bilirubin Urine Negative (Negative); Blood Urine 3+ (Negative); Color Urine Light Yellow (Yellow); Glucose Urine UA Negative (Negative); Ketones Urine Negative (Negative); Leukocyte Esterase Ur Trace LEU/UL (Negative); Nitrate Urine Negative (Negative); Protein Urine Trace (Negative); Specific Grav Ur 1.025 (1.010-1.020); Urobilinogen Urine 0.2 mg/dL (0.2-1.0)
[2024-06-18 09:56] LABS: Pregnancy On Board Control Positive; Urine Pregnancy Test Negative
[2024-06-18 09:56] LABS: Bacteria Urine 2+ /hpf; Squamous Epithelial Cell Urine Moderate /hpf (Few); WBC Urine >75 /hpf (0-3)
[2024-06-18 11:02] VITALS: BP 125/71; PULSE 68; RESP 16; TEMP 36.3; O2SAT 99
--- NOTE | 2024-06-20 13:40 | PC.NURSE ---
noted urine culture, no growth noted.
== END 2024-06-18 11:35 | disposition home or self-care (01) ==
PROVIDERS: Emergency Provider Internal Medicine Critical Care Medicine
DX: N21.0 Calculus in bladder (principal); N30.00 Acute cystitis without hematuria; F17.290 Nicotine dependence, other tobacco product, uncomplicated
CPT/HCPCS: 74176; 81001; 81025; 87086; 99284

== ENCOUNTER 2024-06-19 13:09 | Emergency (ER) | payer OTHER, SELFPAY ==
[2024-06-19 13:11] VITALS: BP 130/90; PULSE 65; RESP 18; TEMP 35.8; O2SAT 94
--- NOTE | 2024-06-19 13:31 | ED.FEMALEGU ---
HPI - Female Genitourinary General Chief complaint: Urogenital-Female Stated complaint: unable to void. Time Seen by Provider: 06/19/24 13:19 Source: patient Mode of arrival: ambulatory Limitations: no limitations History of Present Illness HPI Narrative: This is a 23-year-old female that returns to the emergency department with some difficulty passing urine was diagnosed yesterday in the emergency department with a CT scan showing a 16mm stone in the bladder, this was discussed with Urology and is scheduled to have a an appointment with Urology tomorrow. The patient since this morning has been having difficulty passing urine and was advised to return to the ER to possibly have a Price catheter placed if difficulty passing urine. Patient was diagnosed with the urinary tract infection and is currently on Cipro. Otherwise no fever chills there is some bladder tenderness with no flank pain no nausea vomiting diarrhea constipation. MD elicited complaint: dysuria Onset (ago): day(s) Related Data Home Medications Medication Instructions Recorded Confirmed No Home Medications 06/19/24 06/19/24 Allergies Allergy/AdvReac Type Severity Reaction Status Date / Time fentanyl Allergy Severe Other Verified 06/19/24 13:13 cephalexin Allergy Swelling Verified 06/19/24 13:13 of the Eye Review of Systems Review of Systems: All systems reviewed & are unremarkable except as noted in HPI and below PMFSH Past Medical History Medical History Hematemesis/vomiting blood IUP (intrauterine ), incidental Kidney stone Miscarriage Obesity (BMI 30-39.9) Surgical History Surgical History H/O dilation and curettage X 2 Family History Family History Grandparent Kidney stone Social History Social History Social History: Independent Smoking packs per day: 0.1 Smoking cigarettes per day: 2.0 Years smoked: 11 Smoking pack-years: 1.10 Smoking status: Current every day smoker Tobacco type: e-cigarettes/vaping Second hand tobacco smoke exposure: Yes Alcohol intake: never Substance use: current Do You Feel Safe in your Home?: Yes Lack of Transportation: No Lack of Food: Sometimes True Current Housing: I Have Housing Concerned About Future Housing: No Difficulty Paying Gas/Electric Bills: No Difficulty Paying for Meds: No Currently Unemployed: No Education: High School Diploma/GED Difficulty w/ Childcare or Family Care: No Spiritual care concerns: No Exam Const: General: healthy appearing and no acute distress Nutritional Appearance: well nourished Orientation/consciousness: patient oriented x3 Limitations: no limitations Chest: Chest palpation & inspection: normal inspection of the chest Resp: Effort & Inspection: normal respiratory effort Auscultation: clear to auscultation bilaterally Cardio: Rate: regular rate Rhythm: regular rhythm GI: GI Palp: Yes Soft to palpation Auscultation: normal bowel sounds : General: Yes Bladder palpation abnormal and Yes no CVA tenderness Back/Spine/Pelvis: Back: no CVA tenderness Course Course Emergency Course: patient having dysuria was seen yesterday in the ER and has a follow-up tomorrow June 20, 2024 with Urology, was advised to return to ER for Price placement if having difficulty passing urine. Patient diagnosed with urinary tract infection and currently taking Cipro. Price catheter was placed and advised to keep follow-up appointment with Urology. Urology at [facility] except the patient for outpatient workup and after speaking to the urologist he advised to remove the Price catheter. Vital Signs Vital signs: Vital Signs Temperature 35.8 C L 06/19/24 13:11 Pulse Rate 65 06/19/24 13
--- NOTE | 2024-06-19 13:44 | PC.NURSE ---
Bina Holden, attempted first 16fr catheterization on pt while I observed. First attempt, when inflating balloon pt stated that she felt a pop. Catheter did not seem stable, so removed catheter. Patient stated she was in agonizing pain. Observed that the balloon inflated and popped. Second attempt went smoothly, balloon inflated properly. Pt still stating that she was in so much pain. Called Jocelin RN into room to verify placement & address pt pain. Nurse stated that roldan was inserted correctly and pain could be due to bladder stone present or irritation from straight cath insertion from previous day.
[2024-06-19 14:00] VITALS: BP 128/85; PULSE 70; RESP 16; O2SAT 98
--- NOTE | 2024-06-19 14:20 | PC.NURSE ---
vera Holden, completed bladder scan while I observed.
[2024-06-19 15:00] VITALS: BP 131/90; PULSE 69; RESP 18; O2SAT 98
--- NOTE | 2024-06-19 16:08 | PC.NURSE ---
(Adina Dominguez writing note) -> Updated pt that we had a code and her nurse was busy handling that and that Jocelin FARRAR would update her soon
[2024-06-19 16:21] VITALS: BP 132/93; PULSE 65; RESP 17; TEMP 36.6; O2SAT 98
== END 2024-06-19 16:21 | disposition home or self-care (01) ==
PROVIDERS: Emergency Provider Emergency Medicine
DX: N39.0 Urinary tract infection, site not specified (principal); N21.0 Calculus in bladder; F17.210 Nicotine dependence, cigarettes, uncomplicated
CPT/HCPCS: 99283

== ENCOUNTER 2025-04-01 07:53 | Emergency (ER) | payer OTHER, SELFPAY ==
[2025-04-01 07:53] VITALS: BP 124/70; PULSE 64; RESP 14; TEMP 36.4; O2SAT 99
--- OUTSIDE RECORDS SUMMARY | 2025-04-01 08:01 | XMS_ITS | Clinical Summary ---
Author Organization [facility] Address [address] [address] Phone Care Team Providers Care [employer] Internet Sales Consultant Name Role Phone Provider, None Primary Care Provider Sangeetha Serna MD Unavailable [phone] Allergies Active Allergy Reactions Criticality Noted Date Comments Fentanyl Other (see Comments) 06/24/2024 Cephalexin Swelling 06/24/2024 Her eyes flow Medications ciprofloxacin (CIPRO) 250 MG Tablet 250 MG ORALLY EVERY 12 HOURS 06/18/2024 Active Social History Tobacco Use Types Packs/Day Years Used Date Smoking Tobacco: Never Assessed Tobacco Cessation:Counseling Given: No Comments Unknown Sex and Gender Information Value Date Recorded Sex Assigned at Not on file Legal Sex Female 2:33 PM CDT Gender Identity Not on file Sexual Orientation Not on file Last Filed Vital Signs Vital Sign Reading Time Taken Comments Blood Pressure 118/81 07/11/2024 10:30 AM CDT Pulse 73 07/11/2024 10:30 AM CDT Temperature - - Respiratory Rate 19 07/11/2024 10:30 AM CDT Oxygen Saturation 98% 07/11/2024 10:30 AM CDT Inhaled Oxygen Concentration - - Weight 85.7 kg (189 lb) 07/11/2024 10:30 AM CDT Height 154.9 cm (5' 1) 07/11/2024 10:30 AM CDT Body Mass Index 35.71 07/11/2024 10:30 AM CDT Plan of Treatment Health Maintenance Due Date Last Done Comments Hepatitis C Virus (HCV) Screening 1998 Human Papillomavirus (HPV) Immunization (1 - 3-dose series) 2013 Pap Smear 2019 SARS-COV-2 Immunization ( - 2023- season) 2024 Influenza Immunization (#1) 2025 Respiratory Syncytial Virus (RSV) Immunization (Adult) (1 - 1-dose 75+ series) 2073 Hepatitis B Immunization Completed 001, 07/10/2001, 10/19/2000, Additional history exists Meningococcal Immunization (ACWY) Completed 05/03/2016 TdaP Immunization Completed 12/28/2022, 07/03/2013 Pneumococcal Immunization Combined Aged Out No longer eligible based on patient's age to complete this topic Rotavirus Immunization Aged Out No lo nger eligible based on patient's age to complete this topic Insurance MEDICAID [place] Care Teams Autom[employer] Internet Sales Consultant Relationship Specialty Start Date End Date Provider, None [place] PCP - General 06/24/24 Sangeetha Purdy MD [address] [facility] [address] [place] [address] Consulting Physician Urology 06/24/24
--- NOTE | 2025-04-01 08:14 | ED.URI ---
HPI - URI/Sore Throat General Chief Complaint: Upper Respiratory Infection Stated Complaint: sore throat and heartburn Time Seen by Provider: 04/01/25 08:13 Source: patient Mode of arrival: ambulatory Limitations: no limitations History of Present Illness HPI Narrative: 24-year-old female with a history of anxiety,gout, kidney stones presents to the ED with a 1 day history of -- sore throat with tenderness or cervical lymph nodes. -- ear fullness No fever or chills no cough or sputum production no nasal congestion or postnasal drip. MD elicited complaint: sore throat Onset (ago): day(s) ( One day) Consistency: constant Able to tolerate fluids by mouth: Yes Exacerbating factors: nothing Relieving factors: nothing Associated symptoms: denies other symptoms Treatments prior to arrival: none Related Data Home Medications ?Medication ?Instructions ?Recorded ?Confirmed ?Last Taken ?Type No Home Medications 06/19/24 06/19/24 Unknown History Allergies Allergy/AdvReac Type Severity Reaction Status Date / Time fentanyl Allergy Severe Other Verified 04/01/25 08:09 cephalexin Allergy Swelling Verified 04/01/25 08:09 of the Eye Review of Systems Review of Systems: All systems reviewed & are unremarkable except as noted in HPI and below PMFSH Past Medical History Medical History Obesity (BMI 30-39.9) IUP (intrauterine ), incidental Hematemesis/vomiting blood Miscarriage Kidney stone Surgical History Surgical History H/O dilation and curettage X 2 Family History Family History Grandparent Kidney stone Social History Social History Social History: Independent Smoking packs per day: 0.1 Smoking cigarettes per day: 2.0 Years smoked: 11 Smoking pack-years: 1.10 Smoking status: Current every day smoker Tobacco type: e-cigarettes/vaping Second hand tobacco smoke exposure: Yes Alcohol intake: never Substance use: current Do You Feel Safe in your Home?: Yes Lack of Transportation: No Lack of Food: Sometimes True Current Housing: I Have Housing Concerned About Future Housing: No Difficulty Paying Gas/Electric Bills: No Difficulty Paying for Meds: No Currently Unemployed: No Education: High School Diploma/GED Difficulty w/ Childcare or Family Care: No Spiritual care concerns: No Exam Narrative: vitals are stable Const: General: healthy appearing Nutritional Appearance: well nourished Orientation/consciousness: patient oriented x3 Limitations: no limitations HENMT: Head: normal to inspection Ears: external ears normal Face/Nose/Sinus: Normal external nose present Face and sinus: normal facial exam Mouth: Yes Normal oral and palatal mucosa present Teeth and gingiva: dentition normal Throat: posterior oropharynx normal Eyes: Conjunctivae: conjunctivae normal Pupils: Equal, round and reactive pupils present EOM: EOMs intact bilaterally Direct Ophthalmoscopy: no photophobia Neck: Neck: normal visual inspection, no lymphadenopathy and no meningeal signs Chest: Chest palpation & inspection: normal inspection of the chest Resp: Effort & Inspection: normal respiratory effort Auscultation: clear to auscultation bilaterally Cardio: Rate: regular rate Rhythm: regular rhythm GI: GI Palp: Yes Soft to palpation Auscultation: normal bowel sounds Other: no tenderness/ rigidity/ rebound. : General: Yes no CVA tenderness Back/Spine/Pelvis: Back: no CVA tenderness Skin: General skin exam: normal color Rashes: no rashes Wounds: no wounds Neuro: General: patient oriented x3, moves all extremities, no meningeal signs, no focal motor deficits and CN's II-XI intact bilaterally Cranial nerves: Yes Nystagmus not present Speech: normal speech Gait exam (Neuro): Normal gait present Extrem: General: normal to inspection and no clubbing, cyanosis or edema Psych: Mental Status: mental status grossly normal Affect: normal affect Attitude: cooperative Course Course Emergency Course: Sore throat-- physical examination is unremarkable. Will do a strep, RSV /influenza / COVID. No upper respiratory tract symptoms. Ear fullness- external auditory canal is unremarkable. Tympanic membrane looks normal. Patient tested negative for strep, influenza, RSV, COVID Vital Signs Vital signs: Vital Signs Temperature 36.4 C L 04/01/25 07:53 Pulse Rate 64 04/01/25 07:53 Respiratory Rate 14 04/01/25 07:53 Blood Pressure 124/70 04/01/25 07:53 Pulse Oximetry 99 04/01/25 07:53 Oxygen Delivery Room Air 04/01/25 07:53 Temperature 36.4 C L 04/01/25 07:53 Pulse Rate 64 04/01/25 07:53 Respiratory Rate 14 04/01/25 07:53 Blood Pressure 124/70 04/01/25 07:53 Pulse Oximetry 99 04/01/25 07:53 Oxygen Delivery Room Air 04/01/25 07:53 MDM - URI/Sore Throat MDM Narrative Medical decision making narrative: sore throat Differential Diagnosis Differential diagnosis: Likely upper respiratory infection Medical Records Attestation: I reviewed the patient's medical records. Lab Data Attestation: I reviewed the patient's lab results. Labs: Lab Results 04/01/25 Range/Units 08:23 Influenza A (RT-PCR) Negative (Negative) Influenza B (RT-PCR) Negative (Negative) RSV (RT-PCR) Negative (Negative) SARS-CoV-2 RNA (RT-PCR) Negative (Negative) Group A Strep (PCR) Not detected (Negative) Discharge Plan Discharge Clinical Impression: Acute sore throat Patient Disposition: Home Condition: Stable Instructions: Antibiotic Form, Strep Throat (ED) Patient Language: Austrian Prescriptions: No Action No Home Medications Follow-up/Referrals: Etelvina Starks MD [Primary Care Provider] - Time of Disposition: 09:15
--- OUTSIDE RECORDS SUMMARY | 2025-04-01 08:37 | XMS_ITS | Clinical Summary ---
Author Organization [facility] Address [address] [place] [address] Phone Care Team Providers Care Technical Account Manager Name Role Phone Provider, None Primary Care Provider Sangeetha Serna MD Unavailable [phone] Allergies Active Allergy Reactions Criticality Noted [...] this topic Insurance MEDICAID [place] Care Teams Technical Account Manager Relationship Specialty Start Date End Date Provider, None [place] PCP - General 06/24/24 Sangeetha Purdy MD [address] [facility] [address] [place] [address] Consulting Physician Urology 06/24/24
[2025-04-01 09:06] LABS: Strep Group A RT-PCR NOT DETECTED (Negative)
[2025-04-01 09:07] LABS: Influenza A QL RT-PCR Negative (Negative); Influenza B QL RT-PCR Negative (Negative); RSV RNA, RT-PCR Negative (Negative); SARS-CoV-2 RNA PCR Negative (Negative)
== END 2025-04-01 09:18 | disposition home or self-care (01) ==
PROVIDERS: Emergency Provider Internal Medicine Critical Care Medicine; PCP Internal Medicine
DX: J02.9 Acute pharyngitis, unspecified (principal); F17.210 Nicotine dependence, cigarettes, uncomplicated; Z20.822 Contact with and (suspected) exposure to COVID-19
CPT/HCPCS: 87637; 87651; 99283

== ENCOUNTER 2025-04-15 14:03 | Emergency (ER) | payer OTHER, SELFPAY ==
--- NOTE | ~2025-04-15 | CT_ITS ---
EXAMINATION: CT abdomen pelvis w con DATE: 04/15/2025 15:48 INDICATION: periumbilical pain with right lower quadrant tend TECHNIQUE: Computed tomography (CT) of the abdomen and pelvis was performed with 100 mL Omnipaque-350 intravenous contrast. Automated exposure control and iterative reconstruction technique were employe d. The dose-length product was 1035.78 mGy-cm. COMPARISON: 06/18/2024. FINDINGS: Lower thorax: Unremarkable Liver: Normal. Biliary/Gallbladder: Gallbladder is normal. No bile duct dilation. Pancreas: No mass or duct dilation. Spleen: Normal. Adrenals:No mass. Kidneys: No suspicious mass, obstructing stone, or hydronephrosis. Partially duplicated left collecti ng system. GI tract: Mild wall edema in the duodenal C-loop, with mild dilation of several loops of bowel and sm all bowel wall thickening in the proximal jejunum, without focal transition point. Long segment wall edema in the ileum, with right lower quadrant mesenteric fluid. No large bowel dilation. Normal appen eva. Mesentery/Peritoneum: No ascites, mass, or free air. Retroperitoneum: No mass. Pelvis: Normal uterus, left ovary, and urinary bladder. Stable right adnexal cyst. Soft Tissues: Small uncomplicated fat-containing umbilical hernia. Bones: No acute osseous finding. IMPRESSION: Hepatomegaly. Small bowel findings possibly representing infectious or inflammatory enteritis. Ischemia could be co nsidered in the differential, especially if there is a history of vasculitis. Reviewed, dictated and finalized at location K. IMPRESSION: Hepatomegaly. Small bowel findings possibly representing infectious or inflammatory enteritis . Ischemia could be considered in the differential, especially if there is a hi story of vasculitis.
[2025-04-15 14:04] VITALS: BP 121/77; PULSE 80; RESP 16; TEMP 36.6; O2SAT 97
--- NOTE | 2025-04-15 14:11 | ED_ITS ---
HPI - Abdominal Pain General Chief Complaint: Abdominal Pain Stated Complaint: abdominal pain Time Seen by Provider: 04/15/25 14:07 Source: patient Mode of arrival: ambulatory Limitations: no limitations History of Present Illness HPI narrative: 24-year-old female with a history of anxiety, gout, kidney stones presents to the ED with a 10 hour history of -- nausea with 2 episodes of vomiting. The vomitus is watery -- periumbilical abdominal pain. No aggravating or relieving factors. No radiation of the pain. No fever. -- Multiple episodes of diarrhea. Diarrhea is watery. No blood or mucus. Patient ate out yesterday . LMP 2 days ago MD elicited complaint: abdominal pain Pertinent past history: kidney stones Onset (ago): hour(s) ( 10 ) Pain Consistency: intermittent Location: periumbilical Severity: moderate Quality: aching Radiation: none Migration to: no migration Exacerbating factors: nothing Relieving factors: nothing Associated symptoms: nausea, vomiting and diarrhea Related Data Date of Last Menstrual Period: 04/13/25 Patient : No Home Medications ?Medication ?Instructions ?Recorded ?Confirmed ?Last Taken ?Type No Home Medications 06/19/24 06/19/24 Unknown History Allergies Allergy/AdvReac Type Severity Reaction Status Date / Time fentanyl Allergy Severe Other Verified 04/15/25 14:09 cephalexin Allergy Swelling Verified 04/15/25 14:09 of the Eye Review of Systems 2 Review of Systems: All systems reviewed & are unremarkable except as noted in HPI and below Constitutional: Constitutional: Reports as per HPI and Reports no additional constitutional complaints Eyes: Eyes: Reports as per HPI and Reports no additional eye complaints ENT: Reports system reviewed and no additional complaints, except as documented and Reports as per HPI Cardiovascular: Cardiovascular: Reports as per HPI and Reports no additional cardiovascular complaints Respiratory: Respiratory: Reports as per HPI and Reports no additional respiratory complaints Gastrointestinal: Gastrointestinal: Reports as per HPI and Reports no additional gastrointestinal complaints Genitourinary: Genitourinary: Reports no additional female genitourinary complaints and Reports as per HPI Musculoskeletal: Musculoskeletal: Reports no additional musculoskeletal complaints and Reports as per HPI Integumentary/Breasts: Skin/Breast: Reports system reviewed and no additional complaints, except as docu and Reports as per HPI Neurologic: Reports system reviewed and no additional complaints, except as documented and Reports as per HPI Psychiatric: Psychiatric: Reports no additional psychiatric complaints and Reports as per HPI Endocrine: Endocrine: Reports no additional endocrine complaints and Reports as per HPI Hematologic/Lymphatic: Hematologic/Lymphatic: Reports no additional hematologic/lymphatic complaints and Reports as per HPI Allergic/Immunologic: Allergic/Immunologic: Reports no additional allergic/immunologic complaints and Reports as per HPI [facility] Past Medical History Medical History Obesity (BMI 30-39.9) IUP (intrauterine ), incidental Hematemesis/vomiting blood Miscarriage Kidney stone Surgical History Surgical History H/O dilation and curettage X 2 Family History Family History Grandparent Kidney stone Social History Social History Social History: Independent Smoking packs per day: 0.1 Smoking cigarettes per day: 2.0 Years smoked: 11 Smoking pack-years: 1.10 Smoking status: Current every day smoker Tobacco type: e-cigarettes/vaping Second hand tobacco smoke exposure: Yes Alcohol intake: never Substance use: current Do You Feel Safe in your Home?: Yes Lack of Transportation: No Lack of Food: Sometimes True Current Housing: I Have Housing Concerned About Future Housing: No Difficulty Paying Gas/Electric Bills: No Difficulty Paying for Meds: No Currently Unemployed: No Education: High School Diploma/GED Difficulty w/ Childcare or Family Care: No Spiritual care concerns: No Exam 2 Narrative: vitals are stable. Afebrile Const: General: no acute distress Orientation/consciousness: patient oriented x3 HENMT: Head: normal to inspection Ears: external ears normal F maria fernanda/Nose/Sinus: Normal external nose present Face and sinus: normal facial exam Mouth: Yes Normal oral and palatal mucosa present Throat: posterior oropharynx normal Eyes: Conjunctivae: conjunctivae normal Pupils: Equal, round and reactive pupils present EOM: EOMs intact bilaterally Direct Ophthalmoscopy: no photophobia Neck: Neck: normal visual inspection, no lymphadenopathy and no meningeal signs Chest: Chest palpation & inspection: normal inspection of the chest Resp: Effort & Inspection: normal respiratory effort Auscultation: clear to auscultation bilaterally Cardio: Rate: regular rate Rhythm: regular rhythm GI: Auscultation: normal bowel sounds Other: tenderness in the right lower quadrant without any rigidity or rebound. : General: Yes no CVA tenderness Back/Spine/Pelvis: Back: no CVA tenderness Skin: General skin exam: normal color Rashes: no rashes Wounds: no wounds Neuro: General: patient oriented x3, moves all extremities, no meningeal signs, no focal motor deficits and CN's II-XI intact bilaterally Speech: n ormal speech Extrem: General: normal to inspection and no clubbing, cyanosis or edema Psych: Mental Status: mental status grossly normal Affect: normal affect Attitude: cooperative Course Course Emergency Course: Gastroenteritis right lower quadrant abdominal pain/tenderness-- elevated white cell count of 15.5. CT of the abdomen and pelvis with contrast revealed enteritis. Transaminitis with elevated AST and ALT of 45 and 65 respectively. Patient has a normal alkaline phosphatase urine is positive with leukocyte esterase white cells and red cells. will this regard this as the patient is asymptomatic and she is just recovering from her menstrual period. Vital Signs Vital signs: Vital Signs Temperature 36.6 C 04/15/25 14:04 Pulse Rate 80 04/15/25 14:04 Respiratory Rate 16 04/15/25 14:04 Blood Pressure 121/77 04/15/25 14:04 Pulse Oximetry 97 04/15/25 14:04 Oxygen Delivery Room Air 04/15/25 14:04 Temperature 36.6 C 04/15/25 15:54 Pulse Rate 84 04/15/25 15:54 Respiratory Rate 18 04/15/25 15:54 Blood Pressure 139/75 04/15/25 15:54 Pulse Oximetry 100 04/15/25 15:54 Oxygen Delivery Room Air 04/15/25 15:54 MDM - Abdominal Pain MDM Narrative Medical decision making narrative: Gastroenteritis Differential Diagnosis Differential diagnosis: Likely abdominal pain and calculus of kidney Medical Records Attestation: I reviewed the patient's medical records. Lab Data Attestation: I reviewed the patient's lab results. 04/15/25 14:32 04/15/25 14:32 Labs: Lab Results 04/15/25 04/15/25 Range/Units 14:08 14:32 WBC 15.5 H (4.8-10.8) K/mm3 RBC 5.04 (4.20-5.40) M/mm3 Hgb 14.4 (12.0-15.0) g/dL Hct 43.0 (35.0-49.0) % MCV 85.3 (78.0-102.0) fL MCH 28.6 (27.0-31.0) pg MCHC 33.5 (32-36) g/dL RDW 11.9 (11.6-14.4) % Plt Count 238 (150-420) K/mm3 MPV 10.8 (9.2-11.8) fl Immature Gran % (Auto) 0.3 H (0.0-0.0) % Neut % (Auto) 87.6 H (50.0-70.0) % Lymph % (Auto) 6.8 L (18.0-42.0) % [place] % (Auto) 4.8 (2.0-11.0) % Eos % (Auto) 0.2 L (1.0-6.0) % Baso % (Auto) 0.3 (0.0-1.0) % Lymph # (Auto) 1.05 L (1.10-4.50) K/mm3 [place] # (Auto) 0.75 (0.10-0.90) K/mm3 Eos # (Auto) 0.03 (0.02-0.50) K/mm3 Baso # (Auto) 0.05 (0.00-0.10) K/mm3 Abs Immat Gran (auto) 0.05 H (0.00-0.00) K/mm3 Absolute Neuts (auto) 13.54 H (1.70-7.20) K/mm3 Absolute Nucleated RBC 0.00 (0.00-0.00) K/mm3 Nucleated RBC % 0.0 (0-0.0) % PT 10.2 (9.50-12.1) Seconds INR 0.9 Sodium 139 (137-145) mmol/L Potassium 4.0 (3.4-5.0) mmol/L Chloride 110 H (98-107) mmol/L Carbon Dioxide 26 (22-30) mmol/L Anion Gap 3 L (4-12) mmol/L BUN 11 (7-17) mg/dL Creatinine 0.73 (0.7-1.0) mg/dL Estim Creat Clear Calc 101 ml/min Estimated GFR > 60 (59 - ) Glucose 85 (65-110) mg/dL Calculated Osmolality 286 (285-295) mOsm/kg Lactic Acid 1.2 (0.4-2.0) mmol/L Calcium 8.9 (8.4-10.2) mg/dL Total Bilirubin 0.7 (0.2-1.3) mg/dL AST 45 H (14-36) U/L ALT 65 H (6-35) U/L Alkaline Phosphatase 90 (38-126) U/L Total Protein 6.8 (6.3-8.2) g/dL Albumin 4.2 (3.5-5.1) g/dL Lipase 41 (23-300) U/L Urine Color Light yellow (Yellow) Urine Appearance Sl cloudy A (Clear) Urine pH 6.0 (5.0-8.0) Ur Specific Pinch 1.020 (1.010-1.020) Urine Protein Negative (Negative) Urine Glucose (UA) Negative (Negative) Urine Ketones Negative (Negative) Ur Blood (Man) 2+ H (Negative) Urine Nitrate Negative (Negative) Urine Bilirubin Negative (Negative) Urine Urobilinogen 0.2 (0.2-1.0) mg/dL Leukocyte Esterase Rfl 1+ H (Negative) INGRID/UL Urine RBC 6-10 H (0-2) /hpf Urine WBC 7-9 H (0-3) /hpf Ur Squamous Epith Cells Few (Few) /hpf Urine Bacteria 2+ H (None) /hpf Urine Test Negative Imaging Data Radiologist's impression: ITS Impressions Abdomen/Pelvis CT 04/15/25 15:52 IMPRESSION: Hepatomegaly. Small bowel findings possibly representing infectious or inflammatory enteritis. Ischemia could be considered in the differential, especially if there is a history of vasculitis. Discharge Plan Discharge Clinical Impression: Gastroenteritis Patient Disposition: Home Condition: Stable Instructions: Antibiotic Form, Gastroenteritis (ED) Patient Language: Kazakh Prescriptions: New ondansetron 4 mg tablet,disintegrating 4 mg PO Q6H PRN (Reason: nausea and vomiting) Qty: 10 0RF No Action No Home Medications Follow-up/Referrals: UNKNOWN,DOCTOR [Primary Care Provider] - Time of Disposition: 16:28
--- OUTSIDE RECORDS SUMMARY | 2025-04-15 14:12 | XMS_ITS | Clinical Summary ---
Author Organization [facility] Address [address] [place] [address] Phone Care Team Providers Care Tire Builder Operator Name Role Phone Provider, None Primary Care Provider Sangeetha Serna MD Unavailable [phone] Allergies Active Allergy Reactions Criticality Noted [...] this topic Insurance MEDICAID [place] Care Teams Tire Builder Operator Relationship Specialty Start Date End Date Provider, None [place] PCP - General 06/24/24 Sangeetha Purdy MD #[address] [facility] [address] [place] [address] Consulting Physician Urology 06/24/24
[2025-04-15] MEDS: LACTATED RINGERS 1,000 ML 999 ML IV CONT (14:26)
[2025-04-15 14:32] LABS: Add Urine Microscopic? YES; Glucose Urine UA Negative (Negative); Leukocyte Esterase Ur 1+ LEU/UL (Negative); Nitrate Urine Negative (Negative); Specific Grav Ur 1.020 (1.010-1.020)
[2025-04-15 14:35] LABS: Appearance Urine Sl Cloudy (Clear)
[2025-04-15 14:36] LABS: Pregnancy On Board Control Positive
[2025-04-15 14:39] LABS: Hematocrit 43.0 % (35.0-49.0); Hemoglobin 14.4 g/dL (12.0-15.0); Immature Granulocyte Percent A 0.3 % (0.0-0.0); Lymphocytes Absolute Auto 1.05 K/mm3 (1.10-4.50); Mean Corpuscular HGB Conc 33.5 g/dL (32-36); Mean Corpuscular Hemoglobin 28.6 pg (27.0-31.0); Mean Corpuscular Volume 85.3 fL (78.0-102.0); Nucleated Red Blood Cells Absolute Auto 0.00 K/mm3 (0.00-0.00); Nucleated Red Blood Cells Perc 0.0 % (0-0.0); Platelet Count Result 238 K/mm3 (150-420); Red Blood Count 5.04 M/mm3 (4.20-5.40); White Blood Count 15.5 K/mm3 (4.8-10.8)
--- OUTSIDE RECORDS SUMMARY | 2025-04-15 14:48 | XMS_ITS | Clinical Summary ---
Author Organization [facility] Address [address] [place] [address] Phone Care Team Providers Care Network Operations Center Engineer Name Role Phone Provider, None Primary Care Provider Sangeetha Serna MD Unavailable [phone] Allergies Active Allergy Reactions Criticality Noted [...] this topic Insurance MEDICAID [place] Care Teams Network Operations Center Engineer Relationship Specialty Start Date End Date Provider, None [place] PCP - General 06/24/24 Sangeetha Purdy MD #2 [facility] [address] [place] [address] Consulting Physician Urology 06/24/24
[2025-04-15 14:50] LABS: INR 0.9; Prothrombin Time 10.2 Seconds (9.50-12.1)
[2025-04-15 14:51] LABS: Alanine Aminotransferase 65 U/L (6-35); Albumin Level 4.2 g/dL (3.5-5.1); Alkaline Phosphatase 90 U/L (38-126); Anion Gap 3 mmol/L (4-12); Aspartate Amino Transferase 45 U/L (14-36); Bilirubin,Total 0.7 mg/dL (0.2-1.3); Blood Urea Nitrogen 11 mg/dL (7-17); Calcium 8.9 mg/dL (8.4-10.2); Carbon Dioxide 26 mmol/L (22-30); Chloride 110 mmol/L (98-107); Estimated CRCL calculation 101 ml/min; Estimated Glomerular Filt Rate > 60; Glucose 85 mg/dL (65-110); Lipase 41 U/L (23-300); Osmolality Calculated 286 mOsm/kg (285-295); Potassium 4.0 mmol/L (3.4-5.0); Sodium 139 mmol/L (137-145); Total Protein 6.8 g/dL (6.3-8.2)
[2025-04-15 15:54] VITALS: BP 139/75; PULSE 84; RESP 18; TEMP 36.6; O2SAT 100
--- NOTE | 2025-04-17 12:39 | PC.NURSE ---
urine culture, mixed becky , no treatment needed per dr grande. final
== END 2025-04-15 16:30 | disposition home or self-care (01) ==
PROVIDERS: Emergency Provider Internal Medicine Critical Care Medicine
DX: K52.9 Noninfective gastroenteritis and colitis, unspecified (principal); F17.210 Nicotine dependence, cigarettes, uncomplicated
CPT/HCPCS: 36415; 74177; 80053; 81001; 81025; 83605; 83690; 85025; 85610; 87086; 96360; 99284; J7120; Q9967

== ENCOUNTER 2025-07-13 08:13 | Emergency (ER) | payer OTHER, SELFPAY ==
--- NOTE | ~2025-07-13 | XR_ITS ---
Examination: XR chest 1V portable Clinical History: blood in sputum, N/V with migraine Comparison: None Technique: Portable AP Findings: Heart size normal. Lungs clear. No acute bony abnormality. IMPRESSION: 1. No acute cardiopulmonary findings given portable technique. Reviewed, dictated and finalized at location R.
--- OUTSIDE RECORDS SUMMARY | 2025-07-13 08:22 | XMS_ITS | Data Portability ---
Author Organization [facility] [place] Address [address] [place] [address] Assessment Encounter Date Assessment Date Assessment LastModified by Organization Details LastModified Time 01/21/2024 01/21/2024 Patient is ___weeks . Discussed plan. [email or web address] Not available 01/21/2024 15:52:31 01/31/2024 01/31/2024 Patient is ___weeks . Discussed plan. [email or web address] Not available 01/31/2024 16:06:00 Plan of Treatment Reminders Order Date Submit Date Provider Last Modified By Organization Details Last Modified Time Details Appointments None recorded. Lab None recorded. Referral None recorded. Procedures None recorded. Surgeries None recorded. Imaging non-stress test 2023 024 [email or web address] [facility], [address], [place], [address], 02:33:11 US, obstetric, biophysica l profile + non-stress test 2023 024 [email or web address] [facility], [address], [place], [address], 21:42:54 non-stress test 2023 024 [email or web address] [facility], [address], [place], [address], 15:51:35 Medication Orders None recorded. Patient TargetsNo targets recorded. Patient InstructionsNo instructions recorded. Reason for Referral None Reported. Results Created Date Observation Date Name Description Value Unit Range Abnormal Flag Note LastModifiedBy Organization Detail LastModifiedTime 01/21/20 24 01/21/2024 CULTU RE: GROUP B STREP SCREE N, REFLE X SUSCE PTIBI LITY result report SEE RESULT S BELOW Test: Cultu re: Group B Strep , Refle x Susce ptibi lity ([facility]/ [facility] ) Speci men Sourc e: Vagin a/Rec barbara Speci men Type: Vagin al/Re ctal Speci men Date: 024 4:10 PM Resul t Date: 024 2:13 PM Resul t Statu s: Final resul t Abnor mal: No Resul ting Lab: [facility] [address] [facility] [address] Tel: CULTU RE ----- ----- ----- --- No Group B strep isola sonam at 2 days (ce ctive broth enhan cemen t) Not Available [facility] (Lab) [address] [facility], [place], [address], 01/24/2024 15:17:54 01/10/20 24 01/10/2024 US, obste tric, follo w-up No observ ation record ed. [email or web address] [facility] [address], [place], [address], 01/10/2024 17:45:08 01/10/20 24 01/10/2024 US, obste tric, follo w-up No observ ation record ed. [email or web address] [address], [place], [address], 01/18/2024 16:51:12 01/21/20 24 01/21/2024 non-s tress test No observ ation record ed. [email or web address] [facility] [address], [place], [address], 01/21/2024 15:39:47 01/31/20 24 01/31/2024 US, obste tric, bioph ysica l profi le + non-s tress test No observ ation record ed. [email or web address] [facility] [address], [place], [address], 01/31/2024 16:32:58 01/31/20 24 01/31/2024 non-s tress test No observ ation record ed. [email or web address] [facility] [address], [place], [address], 01/31/2024 16:04:11 01/31/20 24 01/31/2024 US, obste tric, bioph ysica l profi le + non-s tress test No observ ation record ed. [email or web address] [address], [place], [address], 01/31/2024 20:50:11 Result Notes None recorded. Problems Name Problem SNOMED Code Status Onset Date Resolution Date Notes Provider Name and Address Organization Details Recorded Time Urinary tract infectio us disease 74634269 Completed Txed with Macrobid Roni cordova, [facility] 3 16:05:21 Gastroes ophageal reflux disease 462938127 Completed Recommen ded omeprazo le Roni cordova [facility] 3 16:05:21 Obesity 133022071 Completed 37 wk antenata l testing Roni cordova [facility] 4 13:17:19 Nausea 616902616 Completed silvano Almazan MD [address], [place], [address], [place] [facility] 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 4 13:17:19 Family planning surveill ance Completed 201303/31/2021 Contrace ptive method surveill ance;Rec orded Elsewher e: No Locat ion: [facility] S ource: EHR [employer] Safe yasmeen: N Practi ce ID: 0001 Murray lable Time: 02:30:00 PM Barby Latham [facility] 1 12:52:14 Speciali zed medical examinat ion Completed 201303/31/2021 Routine gynecolo gical examinat ion;Prac juan ID: 0001 Barby Latham [facility] 12:52:51 Dysmenor lary 391289034 Completed 201405/04/2021 Dysmenor lary;Rec orded Elsewher e: No Locat ion: [facility] S ource: [facility] [address] Campuso yasmeen: N Practi ce ID: 0001 Murray lable Time: 01:30:00 PM Jessi Grimaldo [facility] 16:53:19 Dairy Consultant al complica tion of intraute rine contrace ptive device 485887783 Completed 201403/31/2021 Dairy Consultant al complica tion due to IUD;Tito rded Elsewher e: No Locat ion: [facility] S ource: [facility] [address] Campuso yasmeen: N Practi ce ID: 0001 Murray lable Time: 01:30:00 PM Barby Latham [facility] 1 12:52:30 Insertio n of intraute rine contrace ptive device Completed 201403/31/2021 INSERTIO N OF IUD;Tito rded Elsewher e: No Locat ion: [facility] S ource: E[employer] yasmeen: N Practi ce ID: 0001 Murray lable Time: 02:02:45 PM Barby cordova [facility] 1 12:52:28 Pregnanc y test negative 902171456 Completed 201403/31/2021 Encounte r for pregnanc y test, result negative ;Recorde d Elsewher e: No [facility] [employer] yasmeen: N Practi ce ID: 0001 Murray lable Time: 03:15:00 PM Barby cordova [facility] 1 12:52:41 Infectio n screenin g Completed 201403/31/2021 Encounte r for screenin g for oth infec/pa rastc diseases ;Recorde d Elsewher e: No Locat ion: [facility] S ource: E[employer] yasmeen: N Practi ce ID: 0001 Murray lable Time: 03:15:00 PM Barby Latham [facility] 12:52:23 Syphilis test finding 203890144 Completed 201403/31/2021 Encntr screen for infectio ns w sexl mode of transmis s;Record ed Elsewher e: No Locat ion: [facility] S ource: E[employer] yasmeen: N Practi ce ID: 0001 Murray lable Time: 03:15:00 PM Barby Latham [facility] 1 12:52:54 Noninfec tious enteriti s of intestin e Completed 201503/31/2021 Gastroen teritis; Recorded Elsewher e: No Locat ion: [facility] S ource: [employer] yasmeen: N Practi ce ID: 0001 Murray lable Time: 02:30:00 PM Barby Latham [facility] 12:52:26 Mild hypereme sis gravidar um 06817782 Completed 201503/31/2021 Hypereme sis gravidar um starting before the end of the 20th week of gestatio n;Record ed Elsewher e: No Locat ion: [facility] S ource: EHR [employer] yasmeen: N Practi ce ID: 0001 Murray lable Time: 02:30:00 PM Barby Latham [facility] [address] 12:52:[address] Concept Completed 201503/31/2021 Encntr for judge exam (general ) (routine ) w/o abn findings ;Recorde d Elsewher e: No Locat ion: [facility] S ource: E[employer] yasmeen: N Practi ce ID: 0001 Murray lable Time: 01:00:00 PM Barby Latham [facility] [address] 12:52:[address] Concept Completed 201603/31/2021 Encntr for routine child health exam w/o abnormal findings ;Recorde d Elsewher e: No [facility]: EHR [employer] yasmeen: N Practi ce ID: 0001 Murray lable Time: 02:30:00 PM Barby Latham [facility] 1 12:52:46 Atypical squamous cells of undeterm ined signific ance on cervical Papanico laou smear 400702441 Completed 201605/04/2021 Atyp squam cell of undet signfc cyto smr crvx (ASC-US) ;Recorde d Elsewher e: No Locat ion: [facility] S ource: EHR [employer] yasmeen: N Practi ce ID: 0001 Murray lable Time: 02:30:00 PM Jessi Grimaldo [facility] 1 16:53:17 Missed miscarri age 49377259 Completed 201703/31/2021 Missed ;Recorde d Elsewher e: No [facility] S ource: EHR [employer] yasmeen: N Practi ce ID: 0001 Murray lable Time: 03:45:00 PM Barby Latham [facility] 1 12:52:35 Low risk human papillom avirus deoxyrib onucleic acid detected in specimen from cervix [id number] 3529951 Completed 201705/04/2021 Cervical low risk HPV DNA test positive ;Recorde d Elsewher e: No Locat ion: [facility] S ource: [employer] yasmeen: N Practi ce ID: 0001 Murray lable Time: 01:45:00 PM [facility] 16:53[facility]24 Antenata l screenin g Completed 201703/31/2021 Encounte r for antenata l screenin g for uncertai n dates;Re corded Elsewher e: No Locat ion: [facility] S ource: [employer] yasmeen: N Practi ce ID: 0001 Murray lable Time: 03:00:00 PM [facility] 12:52:05 Gestatio n period, 8 weeks 97316327 Completed 201703/31/2021 8 weeks gestatio n of pregnanc y;Record ed Elsewher e: No Locat ion: [facility] S ource: [employer] yasmeen: N Practi ce ID: 0001 Murray lable Time: 03:00:00 PM Barby cordova [facility] 1 12:52:16 Secondar y amenorrh ea 908932184 Completed 201703/31/2021 Secondar y amenorrh ea;Pract ice ID: 0001 [facility] 12:52:44 Human papillom avirus deoxyrib onucleic acid detected , high risk on cervical specimen 154317712 Completed 201705/04/2021 Cervical high risk HPV DNA test positive ;Recorde d Elsewher e: No Locat ion: [facility] S ource: EHR [employer] yasmeen: N Practi ce ID: 0001 Murray lable Time: 12:45:24 PM Jessi cordova [facility] 1 16:53:22 Pregnanc y detectio n examinat ion Completed 201703/31/2021 Encounte r for pregnanc y test, result positive ;Recorde d Elsewher e: No Locat ion: [facility] S ource: EHR [employer] yasmeen: N Hayleyti ce ID: 0001 Murray lable Time: 10:00:00 AM Barby cordova [facility] 1 12:52:39 Contrace ption care manageme nt Completed 201703/31/2021 Encounte r for contrace ptive manageme nt, unspecif ied;Tito rded Elsewher e: No Locat ion: [facility] S ource: E[employer] yasmeen: N Hayleyti ce ID: 0001 Murray lable Time: 04:30:00 PM Barby cordova [facility] 1 12:52:08 Gonorrhe a of lower genitour inary tract [id number] 5777035 Completed 201803/31/2021 Gonococc al infectio n of lower genitour inary tract, unsp;Rec orded Elsewher e: No Locat ion: [facility] S ource: EHR [employer] yasmeen: N Hayleyti ce ID: 0001 Murray lable Time: 08:30:00 AM Barby cordova [facility] 1 12:52:19 Pregnanc y 23040914 Completed 202101/05/2023 Roni Vyas [facility] 4 13:17:24 Placenta previa 04489512 Completed 2021 RESOLVED Marginal - rpt u/s schd 09/14 Roni Vyas [facility] 3 16:05:21 Pregnanc y 08666897 Completed 202202/07/2024 Roni Vyas [facility] 4 13:17:24 Anemia 788849153 Completed 2023 1 tab slowfe daily Roni Vyas [facility] 4 13:17:19 Problem Notes None recorded. Procedures Surgical History Date Name Laterality Status Provider Name and Address Organization Details Recorded Time 07/17/20 22 Date of Last Pap Smear completed [facility] 06/28/2023 16:06:07 02/16/20 22 kidney stone analysis completed [facility] 07/17/2022 16:41:40 04/17/20 18 Dilation and Curettage completed [facility] 03/31/2021 12:54:34 09/17/19 16 termination of completed Kayla Cantrell [facility] 11/29/2023 16:32:53 Imaging Results None recorded. Procedure Notes None recorded. Medical Equipment None Reported. Allergies Allergen ID Allergen Name Allergen Category Reaction Reaction Severity Criticality Documentation Date Start Date Code Code System Note Provider Name and Address Organization Details Recorded Time 74489 fentanyl medicatio n chest pain severe high 06/22/2022 4337 RxNorm Barby [facility] 2 16:39:42 52025 Keflex medicatio n Not available Not available Not available 06/22/202234619 7 RxNorm [facility] 2 13:03:12 Medications Name Sig Start Date Stop Date Status Note LastModified by Organization Details LastModified Time hydrocortis one-pramoxi ne 2.5 %-1 % rectal cream INSERT 1 APPLICATI ON 3 TIMES A DAY BY RECTAL ROUTE 06/28 completed Not Available Not Available Not Available hydrocodone 5 mg-acetamin ophen 325 mg tablet Take 1 tablet every 6 hours by oral route. 06/28 completed Not Available Not Available Not Available ondansetron HCl 4 mg tablet TAKE 1 TABLET BY MOUTH 3 TIMES A DAY active Not Available Not Available No t Available ceftriaxone 250 mg solution for injection inject (250MG) by intramusc ular route as a single dose 06/22 completed Not Available Not Available Not Available tramadol 50 mg tablet TAKE 1 TABLET BY MOUTH EVERY 6 - 8 HOURS NEEDED FOR PAIN 7-10 06/28 completed Not Available Not Available Not Available ketorolac 10 mg tablet TAKE 1 TABLET BY MOUTH EVERY 6 HOURS NEEDED FOR PAIN 4-6 06/28 completed Not Available Not Available Not Available tamsulosin 0.4 mg capsule 0.4 MG ORALLY DAILY 06/28 completed Not Available Not Available Not Available cephalexin 500 mg capsule TAKE 1 CAPSULE BY MOUTH EVERY 8 HOURS 06/28 completed Not Available Not Available Not Available hyoscyamine sulfate 0.125 mg tablet TAKE 1 TABLET BY MOUTH FOUR TIMES DAILY NEEDED FOR BLADDER SPASMS 06/28 completed Not Available Not Available Not Available nitrofurant oin macrocrysta l 100 mg capsule TAKE 1 CAPSULE BY MOUTH EVERY 12 HOURS WITH FOOD OR MEAL 06/28 completed Not Available Not Available Not Available promethazin e 25 mg tablet TAKE 1 TABLET BY MOUTH 3 TIMES A DAY NEEDED FOR NAUSEA AND VOMITING active Not Available Not Available No t Available ondansetron 4 mg disintegrat ing tablet 06/28 completed Not Available Not Available Not Available azithromyci n 500 mg tablet take 2 tablet by oral route once 06/22 completed Not Available Not Available Not Available nitrofurant oin monohydrate /macrocryst als 100 mg capsule TAKE 1 CAPSULE BY MOUTH EVERY 12 HOURS active Not Available Not Available No t Available Pain Relief Extra Strength (acetaminop hen) 500 mg tablet 500 MG ORALLY EVERY 6 HOURS NEEDED FOR PAIN 06/28 completed Not Available Not Available Not Available Zofran 07/17 completed Not Available Not Available Not Available Vitamin 06/28 completed Not Available Not Available Not Available Vitals Date Recorded Body height Body mass index (BMI) Body weight Systolic And Diastolic Provider Name and Address Organization Details Last Updated DateTime 01/21/2024 154.94 cm 38.7 kg/m2 11608.435 85 g 124/80 mm[Hg] Traci Chaim [facility] 01/21/2024 15:53:00 Date Recorded Body height Body mass index (BMI) Body weight Systolic And Diastolic Provider Name and Address Organization Details Last Updated DateTime 01/31/2024 154.94 cm 38.9 kg/m2 43705.028 22 g 118/80 mm[Hg] Traci Rucker [facility] 01/31/2024 16:13:34 Social History Question Answer Notes LastModified by Organizat ion Details LastModified Time Tobacco Smoking Status Former Smoker Barby Noa cordova [facility] 06/22/2022 12:33:22 If You Are , What Was Your Level Of Alcohol Consumption Prior To ? Occasional [email or web address] Information not available 12/27/2023 Are You Blind Or Do You Have Difficulty Seeing? No Information not available 05/04/2021 In The 14 Days Before Symptom Onset, Have You Had Close Contact With A Laboratory-confir med COVID-19 While That Case Was Ill? No [email or web address] Information not available 11/29/2023 In The 14 Days Before Symptom Onset, Have You Had Close Contact With A Person Who Is Under Investigation For COVID-19 While That Person Was Ill? No [email or web address] Information not available 11/29/2023 Have You Been To An Area Known To Be High Risk For COVID-19? No Information not available 11/29/2023 Are You Deaf Or Do You Have Serious Difficulty Hearing? No Information not available 05/04/2021 What Type Of Diet Are You Following? REGULAR Information not available 05/04/2021 Do You Use Your Seat Belt Or Car Seat Routinely? Yes Information not available 11/29/2023 Are You Sexually Active? Yes [email or web address] Information not available 01/10/2024 Do You Have Smoke And Carbon Monoxide Detectors In Your Home? Yes [email or web address] Information not available 11/29/2023 Do You Use Sunscreen Routinely? Yes [email or web address] Information not available 11/29/2023 Do You Have Difficulty Walking Or Climbing Stairs? No Information not available 11/29/2023 Sex: Unknown Functional Status Question Answer Note LastModified by Organizat ion Details LastModified Time What is your level of alcohol consumption? None [email or web address] Information not available 12/27/2023 Are you able to walk independently without assistance or assistive devices? [email or web address] Information not available 05/04/2021 Are you able to care for yourself independently? Yes [email or web address] Information not available 11/29/2023 Do you have difficulty dressing, bathing, grooming, or toileting? No [email or web address] Information not available 11/29/2023 What is your exercise level? Occasional Information not available 05/04/2021 Mental Status Question Answer Note LastModified by Organization D etails LastModified Time Do you feel stressed (tense, restless, nervous, or anxious, or unable to sleep at night)? [id number] Information not available 11/29/2023 Family History Relationship Description Onset Age of this Age Resolved Age Notes LastModified by Organization Details LastModified Time Maternal Grandmother Malignant lymphoma [email or web address] Not available 2020 12:54:10 Medical History Condition Response Allergies (Food, seasonal, environmental ) N Other N Drug/Latex Allergies/Reactions Y Breast Cancer N Blood Transfusion N Lung Disease N Dermatologic Disorders N Defects or Inherited Disease N Breast Problem N Gestational Diabetes N Hematologic disorders N Anesthesia Complications N History of STI Y Deep Vein Thrombosis N Polycystic ovary syndrome N Anxiety Disorder N Autoimmune disease N Arthritis N Polyps N Infertility N History of abnormal pap Y Acid Reflux (GERD) N Cancer N Varicosities N Stroke N Neurologic/Epilepsy N Endometriosis N High Cholesterol N Headaches N Fibromyalgia N Kidney Disease N Heart Problems N Thyroid Problems N Kidney or Bladder Problems Y GI Problems N Eating Disorder N Anemia N Art (IVF or FET) N Psychiatric Illness N Ovarian Cancer N Diabetes N Pulmonary (TB, Asthma) N Hepatitis/Liver Disease N No Past Medical History N Eczema N Urinary Tract Infection N Abuse/Domestic Violence N Asthma N Trauma/Violence N Depression/ depression N Heart Disease N Pre-Eclampsia N Hypertension N Osteoporosis N Thrombophilias N Gynecological History Statement/Question Response Abnormal Pap Yes Date of Last Mammogram STIs/STDs Yes Date of DEXA bone scan Date of Last Pap Smear 07/17/2022 Current Control Method LMP Unknown Obstetrics History GPAL:G 4 P 2 0 2 2 Type Value Full Term 2 Induced 1 Spontaneous 1 Living 2 Total 4 Past Encounters Encounter ID Performer Location Encounter Start Date Encounter Closed Date Diagnosis/Indication Diagnosis SNOMED-CT Code Diagnosis ICD10 Code Diagnosis IMO Codes Diagnosis Note [id number] Anil Almazan MD [facility] [address] [address] 03/31/2021 12:26:43 03/31/2021 13:23:11 Venereal disease screening 615699887 Z11.3 Sexually t ransmitted infectious disease 5923151 A64 This patient is a 20-year-ol d female presents for STD testing. She had a partner that tested positive for chlamydia. She denies any symptoms. She denies abnormal vaginal discharge. She denies any nausea, vomiting, fever, chills. We discussed the comprehens missael STD testing and she agreed to do that. She was examined in the vulva and distal vagina appeared normal. [id number] Anil Almazan MD [place] [address],[place] [address] 06/22/2022 11:30:13 06/22/2022 14:23:05 [id number] Anil Almazan MD [facility] [address] [address] 06/22/2022 11:32:59 06/23/2022 13:09:02 Amenorrhea 79611085 N91.2 this patient is a 21-year-ol d female who presents for amenorrhea . She has found have a test. Ultrasound was performed. She has an intrauteri ne . She is doing well. She denies any nausea. Denies any vaginal bleeding or cramping. We talked about early care. Talked about genetic screening. Talked about carrier status is and testing. Talked about vaccines. We spent more than 20 minutes face-to-fa ce. More than 50% was counseling . She return in 4 weeks. [id number] Anil Almazan MD [facility] [address],[place] [address] 07/06/2022 14:37:19 07/06/2022 20:14:24 [id number] MD Jose Barnes [address],[place] [address] 07/17/2022 16:05:17 07/17/2022 17:23:15 Routine care 643895662 Z34.92 [id number] MD Jose Barnes [address],[place] [address] 08/16/2022 15:49:16 08/16/2022 17:32:28 screening for malformation 915446184 Z36.3 [id number] MD Jose Barnes [address],[place] [address] 08/16/2022 15:49:36 08/16/2022 18:16:17 Routine care 612126054 Z34.92 [id number] MD Jose Barnes [address],[place] [address] 10/19/2022 09:37:29 10/19/2022 13:39:36 Low-lying placenta 462820667 O44.40 Z3A.29 [id number] MD Jose Barnes [address],[place] [address] 10/19/2022 09:39:05 10/19/2022 11:16:19 Urinary symptoms 126645615 R39.9 [id number] MD Jose Barnes [address],[place] [address] 11/02/2022 14:20:12 11/02/2022 15:03:50 Routine care 307703102 Z34.92 [id number] MD Jose Barnes [address],[place] [address] 11/16/2022 14:34:45 11/17/2022 10:59:35 Poor growth affecting management 533288223 O36.5930 O99.213 Z3A.33 [id number] MD Jose Barnes [address],[place] [address] 11/16/2022 14:35:18 11/16/2022 16:05:51 Hemorrhoids 61793387 K64.9 Routine an tenatal care 378718520 Z34.92 [id number] MD Jose Barnes [address],[place] [address] 11/30/2022 16:08:22 11/30/2022 17:16:06 Routine care 088251302 Z34.92 [id number] Anil Almazan MD [facility] [address],[place] [address] 12/14/2022 16:53:36 12/14/2022 18:33:04 Routine care 656596694 Z34.92 [id number] MD Jose Barnes [address],[place] [address] 12/14/2022 16:55:40 12/14/2022 17:29:46 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 9058907 O35.00X0 Z3A.37 [id number] Anil Almazan MD [facility] [address],[place] [address] 12/19/2022 14:52:54 12/19/2022 15:59:57 Small for gestational age fetus 152301720 O36.5999 [id number] MD Jose Barnes [address],[place] [address] 12/19/2022 14:54:57 12/19/2022 16:21:29 Small for gestational age fetus 579739326 O36.5930 Z3A.38 [id number] MD Jose Barnes [address],[place] [address] 12/21/2022 13:51:14 12/21/2022 14:46:46 Routine care 081873595 Z34.92 [id number] MD Jose Barnes [address],[place] [address] 01/26/2023 14:33:53 01/26/2023 15:55:06 care [id number] Z39.2 this patient is a 22-year-ol d female presents for follow-up. She is bottle feeding. She has not had sex. . She is not bleeding anymore. Her baby is doing well. She is doing well. She would like ParaGard IUD. She will follow-up for ParaGard IUD. She follow-up in 2-3 months for well-woman exam [id number] Anil Almazan MD Sabinal [address],[place] [address] 06/28/2023 14:59:37 06/28/2023 16:24:51 screening [id number] Z36.87 Z3A.01 [id number] Anil Almazan MD [facility] [address],[place] [address] 06/28/2023 15:00:14 06/29/2023 08:59:56 Amenorrhea [id number] N91.2 this patient is a 22-year-ol d female who presents for amenorrhea . She has a positive test. She had a pelvic Ultrasound revealed a 6 week gestation. We talked about precaution s that included medication , exercise, diet recommenda tions. Talked about care. Patient is going to do genetic screening. We spent 20 minutes face-to-fa ce. More than 50% was counseling [id number] Anil Almazan MD [facility] [address],[place] [address] 08/07/2023 09:30:32 08/07/2023 10:13:15 screening [id number] Z36.82 Z3A.12 [id number] Anil Almazan MD [facility] [address],[place] [address] 08/07/2023 09:31:35 08/07/2023 16:47:15 Routine care 990568012 Z34.92 [id number] Anil Almazan MD [facility] [address],[place] [address] 11/29/2023 16:06:02 11/29/2023 17:41:47 screening for malformation [id number] Z36.3 Z3A.28 [id number] MD Jose Barnes [address],[place] [address] 11/29/2023 16:06:28 11/29/2023 16:48:12 Routine care 146936805 Z34.92 Gestation period, 28 weeks [id number] Z3A.28 [id number] MD Jose Barnes [address],[place] [address] 12/13/2023 11:38:59 12/13/2023 12:43:19 screening 130680434 Z36.2 O35.8XX0 Z3A.30 [id number] Anil Almazan MD [facility] [address],[place] [address] 12/13/2023 11:39:30 12/13/2023 13:14:01 Routine care 579110608 Z34.92 [id number] MD Jose Barnes [address],[place] [address] 12/27/2023 13:58:40 12/27/2023 14:35:03 Dysuria 67053590 R30.0 Routine an tenatal care 854925750 Z34.92 [id number] Anil Almazan MD [facility] [address],[place] [address] 01/10/2024 15:22:31 01/10/2024 16:24:04 Suspected abnormality affecting management of mother [id number] O35.8XX0 Z3A.34 [id number] MD Jose Barnes [address],[place] [address] 01/10/2024 15:23:15 01/10/2024 16:59:08 Routine care 133306010 Z34.92 [id number] MD Jose Barnes [address],[place] [address] 01/21/2024 14:49:55 01/21/2024 15:51:35 Maternal obesity complicating , childbirth and the puerperium, antepartum [id number] 07 O99.215 [id number] Anil Almazan MD [facility] [address],[place] [address] 01/21/2024 14:50:36 01/21/2024 16:54:42 Routine care [id number] Z34.92 [id number] Anil Almazan MD [facility] [address],[place] [address] 01/31/2024 14:47:47 01/31/2024 16:10:01 Maternal obesity complicating , childbirth and the puerperium, antepartum [id number] 07 O99.213 Z3A.37 [id number] Anil Almazan MD [facility] [address],[place] [address] 01/31/2024 14:48:07 01/31/2024 17:02:21 Routine care [id number] Z34.92 [id number] Anil Almazan MD [facility] [address],[place] [address] 01/31/2024 14:52:41 01/31/2024 15:59:21 Maternal obesity complicating , childbirth and the puerperium, antepartum [id number] 07 O99.213 Z3A.37 Health Concerns Section Related Observation LastModified by Organization Detai ls LastModified Time None Recorded Concern Status LastModified by Organization Details LastModified Time None Recorded Advance Directives Directive None Recorded Payers Insurance Date Sequence Insurance Name Policy Number Policy Niño Covered Member ID Niño Member ID Guarantor Name 03/31/2021 SLIDING FEE SCHEDULE - DISCOUNT [facility] 01/21/2024 1 MEDICAID-[place]: [place] DEPARTMENT OF PUBLIC AID [facility] [id number] [facility] 02/04/2024 1 [facility] (MEDICAID HMO) [id number] [facility] [id number] [facility] Notes Date Note Type Note Provider Name and Address Organization Details Recorded Time 01/21/2024 text/html Generic HPI TemplateReported by Patient Anil Almazan MD [address], [place], [address], [facility] 01/21/2024 16:44:55 01/31/2024 text/html Generic HPI TemplateReported by Patient Anil Almazan MD [address], [place], [address], [facility] 01/31/2024 16:46:06 OBGyn Episode Ob Episode Information Episode Created Date Number of Fetuses Patient Bloodtype Patient rh Status Prepregnancy Weight lbs Domestic Partner Domestic Partner Phone Father Name Stem Sizer Status 03/31/20 21 1 CLOSED Fetus Data First Name Last Name Admitted to NICU Weight (g) Sex Living Outcome Pediatric Complications Fetus ID Race Codes Race Delivery Type , Spontane ous [id number] Rodrigo Calculation Initial Rodrigo Date Initial Exam Date Initial Exam Provider Initial Ultrasound Date Last Menstrual Period Date Ultra Sound Weeks Gestation 0 Eighteen To Twenty Week Rodrigo Update Ultra Sound Date Fundal Height At Umbil Quickening Date Ultra Sound Latest Weeks Gestation Final Rodrigo Confirmed By Final Rodrigo Confirmed Date Final Rodrigo Date Ultra Sound Latest Days Gestation 0 0 Menstrual History Last Menstrual Date Menses Monthly On Bcp Conception Prior Menses Frequency Hcg Plus Date Menarche Onset Age Delivery Information Delivery Date Delivery Type Labor Anesthesia Weeks Gestation Incision Type Labor Labor Length Hrs Delivered By Post Complications Tubal Sterilization Discharge Date Comments 8 Suction D&C Discharge Information Feeding Method Contraceptive Method Maternal HG B and HCT Levels Ob Episode Information Episode Created Date Number of Fetuses Patient Bloodtype Patient rh Status Prepregnancy Weight lbs Domestic Partner Domestic Partner Phone Father Name Stem Sizer Status 07/17/20 22 1 O Positive CLOSED Fetus Data First Name Last Name Admitted to NICU Weight (g) Sex Living Outcome Pediatric Complications Fetus ID Race Codes Race Delivery Type 3345.24 1 F true Full Term [id number] Vaginal Delivery Problems Problem Notes 28wk - 1 hr failed; 3hr pass edGBS NEG Problem Name Start Date End Date Resolution Snomed Code Not e Urinary tract infectious disease 62769844 Txed with Macrobid Gastroesophageal reflux disease 659053872 Recommended omeprazole Placenta previa 08/16/2022 SELFRESOLVED 15166932 RESOLVED Marginal - rpt u/s schd 09/14 Rodrigo Calculation Initial Rodrigo Date Initial Exam Date Initial Exam Provider Initial Ultrasound Date Last Menstrual Period Date Ultra Sound Weeks Gestation 01/01/2023 07/17/2022 06/22/2022 03/27/2022 12 Eighteen To Twenty Week Rodrigo Update Ultra Sound Date Fundal Height At Umbil Quickening Date Ultra Sound Latest Weeks Gestation Final Rodrigo Confirmed By Final Rodrigo Confirmed Date Final Rodrigo Date Ultra Sound Latest Days Gestation 0 [email or web address] 08/16/2022 01/02/20 23 0 Pre- Flowsheet Flowsheet Date 07/17/2022 Aviles Score Blood Edema Fundus Height Fundus Units Glucose Ketones Leukocytes Nitrite Labor Signs Protein Cervic Dilation Cervic Effacement Cervic Station Type Weight in lbs Pre/Post Dialysis Refused Weight 153.161054068497 BP Diastolic BP Location Tested BP Systolic BP Type 68 R arm 148 sitting Fetus Heart Rate Present Fetus Movement Comments 21-year-old female who prese [facility] for initial care. She is a 3 para 0020 at 16 weeks gestation . She is not vaccinated. She is given vaccine recommendations. She did not do genetic testing. we discussed care in detail. She will begin routine care. Flowsheet Date 08/16/2022 Aviles Score Blood Edema Fundus Height Fundus Units Glucose Ketones Leukocytes Nitrite Labor Signs Protein Cervic Dilation Cervic Effacement Cervic Station Type Weight in lbs Pre/Post Dialysis Refused BP Diastolic BP Location Tested BP Systolic BP Type Fetus Heart Rate Present Fetus Movement Comments Flowsheet Date 08/16/2022 Aviles Score Blood Edema Fundus Height Fundus Units Glucose Ketones Leukocytes Nitrite Labor Signs Protein Cervic Dilation Cervic Effacement Cervic Station 20 Type Weight in lbs Pre/Post Dialysis Refused Weight 156.866046736535 BP Diastolic BP Location Tested BP Systolic BP Type 70 R arm 113 sitting Fetus Heart Rate Present A 144 Fetus Movement Comments no complaints, incomplete an atomy scan today, repeat 4 weeks, no problems Flowsheet Date 10/19/2022 Aviles Score Blood Edema Fundus Height Fundus Units Glucose Ketones Leukocytes Nitrite Labor Signs Protein Cervic Dilation Cervic Effacement Cervic Station Type Weight in lbs Pre/Post Dialysis Refused BP Diastolic BP Location Tested BP Systolic BP Type Fetus Heart Rate Present Fetus Movement Comments Flowsheet Date 10/19/2022 Aviles Score Blood Edema Fundus Height Fundus Units Glucose Ketones Leukocytes Nitrite Labor Signs Protein Cervic Dilation Cervic Effacement Cervic Station 29 Type Weight in lbs Pre/Post Dialysis Refused Weight 167.148986442051 BP Diastolic BP Location Tested BP Systolic BP Type 77 R arm 124 sitting Fetus Heart Rate Present A 145 Fetus Movement Comments resolution of previa, urinar y symptoms of urgency and dysuria, treated with antibiotics, positive urine dip. Flowsheet Date 11/02/2022 Aviles Score Blood Edema Fundus Height Fundus Units Glucose Ketones Leukocytes Nitrite Labor Signs Protein Cervic Dilation Cervic Effacement Cervic Station Type Weight in lbs Pre/Post Dialysis Refused Weight 171.021490509781 BP Diastolic BP Location Tested BP Systolic BP Type 79 R arm 129 sitting Fetus Heart Rate Present A 145 Fetus Movement A Yes Comments patient reports gastroesopha geal reflux, made recommendations, recommended omeprazole, discussed weight gain. She is doing well. She has no other complaints, no other problems, no questions. Flowsheet Date 11/16/2022 Aviles Score Blood Edema Fundus Height Fundus Units Glucose Ketones Leukocytes Nitrite Labor Signs Protein Cervic Dilation Cervic Effacement Cervic Station Type Weight in lbs Pre/Post Dialysis Refused BP Diastolic BP Location Tested BP Systolic BP Type Fetus Heart Rate Present Fetus Movement Comments Flowsheet Date 11/16/2022 Aviles Score Blood Edema Fundus Height Fundus Units Glucose Ketones Leukocytes Nitrite Labor Signs Protein Cervic Dilation Cervic Effacement Cervic Station 33 Type Weight in lbs Pre/Post Dialysis Refused Weight 174.44914661886 BP Diastolic BP Location Tested BP Systolic BP Type 80 R arm 123 sitting Fetus Heart Rate Present A 145 Fetus Movement A Yes Comments no complaints, no problems, growth ultrasound today, low normal head measurements, repeat in 4 weeks. Flowsheet Date 11/30/2022 Aviles Score Blood Edema Fundus Height Fundus Units Glucose Ketones Leukocytes Nitrite Labor Signs Protein Cervic Dilation Cervic Effacement Cervic Station 24 0cm 50% -1 Type Weight in lbs Pre/Post Dialysis Refused Weight 181.783753427191 BP Diastolic BP Location Tested BP Systolic BP Type 72 R arm 112 sitting Fetus Heart Rate Present A 145 Fetus Movement A Yes Comments head low, soft cervix, good movement, GBS done Flowsheet Date 12/14/2022 Aviles Score Blood Edema Fundus Height Fundus Units Glucose Ketones Leukocytes Nitrite Labor Signs Protein Cervic Dilation Cervic Effacement Cervic Station Type Weight in lbs Pre/Post Dialysis Refused BP Diastolic BP Location Tested BP Systolic BP Type Fetus Heart Rate Present Fetus Movement Comments Flowsheet Date 12/14/2022 Aviles Score Blood Edema Fundus Height Fundus Units Glucose Ketones Leukocytes Nitrite Labor Signs Protein Cervic Dilation Cervic Effacement Cervic Station Type Weight in lbs Pre/Post Dialysis Refused Weight 184.616826816742 BP Diastolic BP Location Tested BP Systolic BP Type 72 R arm 107 sitting Fetus Heart Rate Present A 145 Fetus Movement A Yes Comments no complaints, no problems, will have repeat at 39 weeks. Flowsheet Date 12/19/2022 Aviles Score Blood Edema Fundus Height Fundus Units Glucose Ketones Leukocytes Nitrite Labor Signs Protein Cervic Dilation Cervic Effacement Cervic Station Type Weight in lbs Pre/Post Dialysis Refused BP Diastolic BP Location Tested BP Systolic BP Type Fetus Heart Rate Present Fetus Movement Comments Flowsheet Date 12/19/2022 Aviles Score Blood Edema Fundus Height Fundus Units Glucose Ketones Leukocytes Nitrite Labor Signs Protein Cervic Dilation Cervic Effacement Cervic Station Type Weight in lbs Pre/Post Dialysis Refused BP Diastolic BP Location Tested BP Systolic BP Type Fetus Heart Rate Present Fetus Movement Comments Flowsheet Date 12/21/2022 Aviles Score Blood Edema Fundus Height Fundus Units Glucose Ketones Leukocytes Nitrite Labor Signs Protein Cervic Dilation Cervic Effacement Cervic Station none trace 0cm Type Weight in lbs Pre/Post Dialysis Refused Weight 182.566400301583 BP Diastolic BP Location Tested BP Systolic BP Type 75 R arm 119 sitting Fetus Heart Rate Present A 146 Fetus Movement A Yes Comments Finger tip, soft, baby is ve ry low, cervical ripening on this coming Sunday. Five days. Menstrual History Last Menstrual Date Menses Monthly On Bcp Conception Prior Menses Frequency Hcg Plus Date Menarche Onset Age 0703/27/2022 Genetic Screening And Infection History Question Response Note Mental Retardation/Autism false Patient's Age Will Be 35 Years Or Older At Estim ated Date of Delivery false Thalassemia (Welsh, Sri Lankan, Mediterranean, Or Background): MCV < 80 false Neural Tube Defect (Meningomyelocele, Spina Bifi da, Or Anencephaly) false Congenital Heart Defect false Down Syndrome false Brett-Sachs (eg, Congregation, Cajun, Slovenian-[place]) f alse Deniz Disease false Sickle Cell Disease Or Trait () false Hemophilia Or Other Blood Disorders false Muscular Dystrophy false Cystic Fibrosis false Jourdan's Chorea false Intellectual Disability/Autism false If Yes, Was Person Tested For Fragile X? false Other Inherited Genetic Or Chromosomal Disorder false Maternal Metabolic Disorder (eg, Type 1 Diabetes , PKU) false Patient Or Baby's Father Had A Child With Defects Not Listed Above false Recurrent Loss, Or A Stillbirth false Medications (including Suppl ements, Vitamins, Herbs, OTC Drugs), Illicit/Recreational Drugs, Alcohol false If Yes, Agent(s) And Strength/Dosage false Any Other Genetic History false Live With Someone With TB Or Exposed To TB false Patient Or Partner Has History Of Genital Herpes false Rash Or Viral Illness Since Last Menstrual Perio d false History Of STD, Gonorrhea, Chlamydia, HPV, Syphi lis false Other Infection History false History of HIV false History of Hepatitis false Prior GBS-infected child false Hemoglobinopathy Or Carrier false Other Structural Defect false Recent Travel History Outside of Country false Delivery Information Delivery Date Delivery Type Labor Anesthesia Weeks Gestation Incision Type Labor Labor Length Hrs Delivered By Post Complications Tubal Sterilization Discharge Date Comments 3 Induce d [facility] idural 39.2 false Anil Almazan MD resolved previa, GERD Discharge Information Feeding Method Contraceptive Method Maternal HG B and HCT Levels Ob Episode Information Episode Created Date Number of Fetuses Patient Bloodtype Patient rh Status Prepregnancy Weight lbs Domestic Partner Domestic Partner Phone Father Name Stem Sizer Status 07/17/20 22 1 CLOSED Fetus Data First Name Last Name Admitted to NICU Weight (g) Sex Living Outcome Pediatric Complications Fetus ID Race Codes Race Delivery Type , Induced [id number] Rodrigo Calculation Initial Rodrigo Date Initial Exam Date Initial Exam Provider Initial Ultrasound Date Last Menstrual Period Date Ultra Sound Weeks Gestation 0 Eighteen To Twenty Week Rodrigo Update Ultra Sound Date Fundal Height At Umbil Quickening Date Ultra Sound Latest Weeks Gestation Final Rodirgo Confirmed By Final Rodrigo Confirmed Date Final Rodrigo Date Ultra Sound Latest Days Gestation 0 0 Menstrual History Last Menstrual Date Menses Monthly On Bcp Conception Prior Menses Frequency Hcg Plus Date Menarche Onset Age Delivery Information Delivery Date Delivery Type Labor Anesthesia Weeks Gestation Incision Type Labor Labor Length Hrs Delivered By Post Complications Tubal Sterilization Discharge Date Comments 6 Discharge Information Feeding Method Contraceptive Method Maternal HG B and HCT Levels Ob Episode Information Episode Created Date Number of Fetuses Patient Bloodtype Patient rh Status Prepregnancy Weight lbs Domestic Partner Domestic Partner Phone Father Name Stem Sizer Status 08/07/20 23 1 O Positive 187 CLOSED Fetus Data First Name Last Name Admitted to NICU Weight (g) Sex Living Outcome Pediatric Complications Fetus ID Race Codes Race Delivery Type 3630.14 73264 F true Full Term 44786 Vaginal Delivery Problems Problem Notes SHORT INTERVAL PREGNANCYfail ed 1 hour/ 3 hour gtt at [place] Problem Name Start Date End Date Resolution Snomed Code Not e Obesity 268689890 37 wk ante hien testing Anemia 12/13/2023 760970225 1 tab slo wfe daily 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, bilateral Rodrigo Calculation Initial Rodrigo Date Initial Exam Date Initial Exam Provider Initial Ultrasound Date Last Menstrual Period Date Ultra Sound Weeks Gestation 02/15/2024 08/07/2023 06/28/2023 6 Eighteen To Twenty Week Rodrigo Update Ultra Sound Date Fundal Height At Umbil Quickening Date Ultra Sound Latest Weeks Gestation Final Rodrigo Confirmed By Final Rodrigo Confirmed Date Final Rodrigo Date Ultra Sound Latest Days Gestation 0 [email or web address] 08/07/2023 02/15/20 24 0 Pre-hien Flowsheet Flowsheet Date 08/07/2023 Aviles Score Blood Edema Fundus Height Fundus Units Glucose Ketones Leukocytes Nitrite Labor Signs Protein Cervic Dilation Cervic Effacement Cervic Station Type Weight in lbs Pre/Post Dialysis Refused Weight 186.072441125511 BP Diastolic BP Location Tested BP Systolic BP Type 83 R arm 130 sitting Fetus Heart Rate Present A 145 Fetus Movement Comments this patient is a 22-year-ol d 4 para 1021 at 12 weeks' gestation who presents for initial visit. She is a very young baby. This is a short interval . She had a normal vaginal at term last . She is not vaccinated for COVID and has not been infected. We discussed care in detail. She will begin routine care. Flowsheet Date 11/29/2023 Aviles Score Blood Edema Fundus Height Fundus Units Glucose Ketones Leukocytes Nitrite Labor Signs Protein Cervic Dilation Cervic Effacement Cervic Station Type Weight in lbs Pre/Post Dialysis Refused BP Diastolic BP Location Tested BP Systolic BP Type Fetus Heart Rate Present Fetus Movement Comments Flowsheet Date 11/29/2023 Aviles Score Blood Edema Fundus Height Fundus Units Glucose Ketones Leukocytes Nitrite Labor Signs Protein Cervic Dilation Cervic Effacement Cervic Station neg trace none trace Type Weight in lbs Pre/Post Dialysis Refused Weight 205.257594122031 BP Diastolic BP Location Tested BP Systolic BP Type 73 112 Fetus Heart Rate Present A 138 Fetus Movement A Yes Comments patient states that having s ome swelling. no complaints, no problems, routine care, Patient no showed for 16 weeks., catching up on care that was not done. Anatomy ultrasound, diabetes testing today. Flowsheet Date 12/13/2023 Aviles Score Blood Edema Fundus Height Fundus Units Glucose Ketones Leukocytes Nitrite Labor Signs Protein Cervic Dilation Cervic Effacement Cervic Station Type Weight in lbs Pre/Post Dialysis Refused BP Diastolic BP Location Tested BP Systolic BP Type Fetus Heart Rate Present Fetus Movement Comments Flowsheet Date 12/13/2023 Aviles Score Blood Edema Fundus Height Fundus Units Glucose Ketones Leukocytes Nitrite Labor Signs Protein Cervic Dilation Cervic Effacement Cervic Station none none trace Type Weight in lbs Pre/Post Dialysis Refused Weight 206.506774062540 BP Diastolic BP Location Tested BP Systolic BP Type Fetus Heart Rate Present A 145 Fetus Movement A Yes Comments no complaints, no problems, routine care, to have 3 hour glucose tolerance test shortly. Good growth on ultrasound today. Flowsheet Date 12/27/2023 Aviles Score Blood Edema Fundus Height Fundus Units Glucose Ketones Leukocytes Nitrite Labor Signs Protein Cervic Dilation Cervic Effacement Cervic Station neg trace none trace Type Weight in lbs Pre/Post Dialysis Refused Weight 206.183287270568 BP Diastolic BP Location Tested BP Systolic BP Type 85 123 Fetus Heart Rate Present A 145 Fetus Movement A Yes Comments Patient states that is havin g swelling and pain with urination. Positive urine dip for blood and nitrites , leukocytes. treated for urinary tract infection. Has a growth ultrasound, now up in 2 weeks. Size bigger than dates. Flowsheet Date 01/10/2024 Aviles Score Blood Edema Fundus Height Fundus Units Glucose Ketones Leukocytes Nitrite Labor Signs Protein Cervic Dilation Cervic Effacement Cervic Station Type Weight in lbs Pre/Post Dialysis Refused BP Diastolic BP Location Tested BP Systolic BP Type Fetus Heart Rate Present Fetus Movement Comments Flowsheet Date 01/10/2024 Aviles Score Blood Edema Fundus Height Fundus Units Glucose Ketones Leukocytes Nitrite Labor Signs Protein Cervic Dilation Cervic Effacement Cervic Station neg trace none trace Type Weight in lbs Pre/Post Dialysis Refused Weight 207.182348750427 BP Diastolic BP Location Tested BP Systolic BP Type 77 L arm 123 sitting Fetus Heart Rate Present A 145 Fetus Movement A Yes Comments no complaints, no problems, routine care. Flowsheet Date 01/21/2024 Aviles Score Blood Edema Fundus Height Fundus Units Glucose Ketones Leukocytes Nitrite Labor Signs Protein Cervic Dilation Cervic Effacement Cervic Station Type Weight in lbs Pre/Post Dialysis Refused BP Diastolic BP Location Tested BP Systolic BP Type Fetus Heart Rate Present Fetus Movement Comments Flowsheet Date 01/21/2024 Aviles Score Blood Edema Fundus Height Fundus Units Glucose Ketones Leukocytes Nitrite Labor Signs Protein Cervic Dilation Cervic Effacement Cervic Station neg none none trace 2cm 40% -2 Type Weight in lbs Pre/Post Dialysis Refused Weight 205.581231779456 BP Diastolic BP Location Tested BP Systolic BP Type 80 L arm 124 sitting Fetus Heart Rate Present A 145 Fetus Movement A Yes Comments Patient c/o of nausea and sw elling in feet, Favorable cervical exam, low presenting part. No complaints. Scheduled for induction at 39 weeks. Flowsheet Date 01/31/2024 Aviles Score Blood Edema Fundus Height Fundus Units Glucose Ketones Leukocytes Nitrite Labor Signs Protein Cervic Dilation Cervic Effacement Cervic Station Type Weight in lbs Pre/Post Dialysis Refused BP Diastolic BP Location Tested BP Systolic BP Type Fetus Heart Rate Present Fetus Movement Comments Flowsheet Date 01/31/2024 Aviles Score Blood Edema Fundus Height Fundus Units Glucose Ketones Leukocytes Nitrite Labor Signs Protein Cervic Dilation Cervic Effacement Cervic Station Type Weight in lbs Pre/Post Dialysis Refused BP Diastolic BP Location Tested BP Systolic BP Type Fetus Heart Rate Present Fetus Movement Comments Flowsheet Date 01/31/2024 Aviles Score Blood Edema Fundus Height Fundus Units Glucose Ketones Leukocytes Nitrite Labor Signs Protein Cervic Dilation Cervic Effacement Cervic Station neg trace 37 none trace Type Weight in lbs Pre/Post Dialysis Refused Weight 206.086436411339 BP Diastolic BP Location Tested BP Systolic BP Type 80 L arm 118 sitting Fetus Heart Rate Present A 147 Fetus Movement A Yes Comments Patient c/o of slight pressu re and slight swelling in feet, reassuring testing, bilateral pyelectasis Menstrual History Last Menstrual Date Menses Monthly On Bcp Conception Prior Menses Frequency Hcg Plus Date Menarche Onset Age Genetic Screening And Infection History Question Response Note Mental Retardation/Autism false Patient's Age Will Be 35 Years Or Older At Estim ated Date of Delivery false Thalassemia (Welsh, Sri Lankan, Mediterranean, Or Background): MCV < 80 false Neural Tube Defect (Meningomyelocele, Spina Bifi da, Or Anencephaly) false Congenital Heart Defect false Down Syndrome false Brett-Sachs (eg, Congregation, Cajun, [place] f alse Deniz Disease false Sickle Cell Disease Or Trait () false Hemophilia Or Other Blood Disorders false Muscular Dystrophy false Cystic Fibrosis false Guilderland's Chorea false Intellectual Disability/Autism false If Yes, Was Person Tested For Fragile X? false Other Inherited Genetic Or Chromosomal Disorder false Maternal Metabolic Disorder (eg, Type 1 Diabetes , PKU) false Patient Or Baby's Father Had A Child With Defects Not Listed Above false Recurrent Loss, Or A Stillbirth false Medications (including Suppl ements, Vitamins, Herbs, OTC Drugs), Illicit/Recreational Drugs, Alcohol false If Yes, Agent(s) And Strength/Dosage false Any Other Genetic History false Live With Someone With TB Or Exposed To TB false Patient Or Partner Has History Of Genital Herpes false Rash Or Viral Illness Since Last Menstrual Perio d false History Of STD, Gonorrhea, Chlamydia, HPV, Syphi lis false Other Infection History false History of HIV false History of Hepatitis false Prior GBS-infected child false Hemoglobinopathy Or Carrier false Other Structural Defect false Recent Travel History Outside of Country false Delivery Information Delivery Date Delivery Type Labor Anesthesia Weeks Gestation Incision Type Labor Labor Length Hrs Delivered By Post Complications [facility] An[facility] Al[facility]zan MD Dilatatio n of renal pelvis,Ma rginal insertion of umbilical cord,Naus ea,Placen ta circumval natasha, prolonged ROM txdx2 Discharge Information Feeding Method Contraceptive Method Maternal HG B and HCT Levels
[2025-07-13 08:24] VITALS: BP 143/89; PULSE 74; RESP 16; TEMP 35.8; O2SAT 96
--- NOTE | 2025-07-13 08:27 | ED_ITS ---
HPI - Nausea/Vomiting/Diarrhea General Chief complaint: Nausea/Vomiting/Diarrhea Stated complaint: Vomiting Time Seen by Provider: 07/13/25 08:13 Source: patient Mode of arrival: ambulatory Limitations: no limitations History of Present Illness HPI Narrative: Patient is a 24-year-old female with a migraine headache since last night which is her typical pain and associated nausea vomiting which is not normal related to her migraines. Patient also had some associated streaking blood in her vomit x5. No velma coughing up or vomiting blood beyond streaking. MD elicited complaint: nausea and vomiting Pertinent past history: other (Migraine headaches) Onset (ago): day(s) (One) Description of vomiting: blood-streaked Description of diarrhea: other (No diarrhea) Associated nausea: Yes Associated abdominal pain: No Location of pain: other (Headache/migraine pain) Radiation: other (No Abdo pain) Pain consistency: constant Severity: moderate Pain scale (0-10): 9 Quality: stabbing and sharp Exacerbating factors: other (Light and sound) Relieving factors: none Context: other (Patient has chronic and recurrent migraine headaches and this feels to be the same and she gets these 4 to 5 times a week; patient is not on medication; patient does not have a primary doctor or neurologist) Associated symptoms: nausea/vomiting Treatment prior to arrival: other (None) Related Data Allergies Allergy/AdvReac Type Severity Reaction Status Date / Time fentanyl Allergy Severe Other Verified 07/13/25 08:23 cephalexin Allergy Swelling Verified 07/13/25 08:23 of the Eye Review of Systems 2 Review of Systems: All systems reviewed & are unremarkable except as noted in HPI and below Constitutional: Constitutional: Reports no additional constitutional complaints Eyes: Eyes: Reports no additional eye complaints ENT: Reports system reviewed and no additional complaints, except as documented Cardiovascular: Cardiovascular: Reports no additional cardiovascular complaints Respiratory: Respiratory: Reports no additional respiratory complaints Gastrointestinal: Gastrointestinal: Reports no additional gastrointestinal complaints Genitourinary: Genitourinary: Reports no additional female genitourinary complaints Musculoskeletal: Musculoskeletal: Reports no additional musculoskeletal complaints Integumentary/Breasts: Skin/Breast: Reports system reviewed and no additional complaints, except as docu Neurologic: Reports system reviewed and no additional complaints, except as documented Psychiatric: Psychiatric: Reports no additional psychiatric complaints Endocrine: Endocrine: Reports no additional endocrine complaints Hematologic/Lymphatic: Hematologic/Lymphatic: Reports no additional hematologic/lymphatic complaints Allergic/Immunologic: Allergic/Immunologic: Reports no additional allergic/immunologic complaints PMFSH Past Medical History Medical History Obesity (BMI 30-39.9) IUP (intrauterine ), incidental Hematemesis/vomiting blood Miscarriage Kidney stone Surgical History Surgical History H/O dilation and curettage X 2 Family History Family History Grandparent Kidney stone Social History Social History Social History: Independent Smoking packs per day: 0.1 Smoking cigarettes per day: 2.0 Years smoked: 11 Smoking pack-years: 1.10 Smoking status: Current every day smoker Tobacco type: e-cigarettes/vaping Second hand tobacco smoke exposure: Yes Alcohol intake: never Substance use: current Do You Feel Safe in your Home?: Yes Lack of Transportation: No Lack of Food: Sometimes True Current Housing: I Have Housing Concerned About Future Housing: No Difficulty Paying Gas/Electric Bills: No Difficulty Paying for Meds: No Currently Unemployed: No Education: High School Diploma/GED Difficulty w/ Childcare or Family Care: No Spiritual care concerns: No Exam 2 Const: General: ill appearing Nutritional Appearance: well nourished O rientation/consciousness: patient oriented x3 HENMT: Head: normal to inspection Ears: external ears normal F maria fernanda/Nose/Sinus: Normal external nose present Eyes: Conjunctivae: conjunctivae normal Cornea: corneas normal Pupils: E qual, round and reactive pupils present Neck: Neck: normal visual inspection Chest: Chest palpation & inspection: normal inspection of the chest Resp: Effort & Inspection: normal respiratory effort and not labored A uscultation: clear to auscultation bilaterally and no crackles Cardio: Rate: regular rate Rhythm: regular rhythm Heart sounds: no murmurs GI: Inspection: non-distended GI Palp: Yes Soft to palpation and No Tenderness to palpation present (GI) Auscultation: normal bowel sounds : General: Yes bladder normal to palpation Back/Spine/Pelvis: Back: no CVA tenderness Skin: General skin exam: normal color Rashes: no rashes Wounds: no wounds Neuro: General: patient oriented x3, moves all extremities and no meningeal signs Extrem: General: normal to inspection, no clubbing, cyanosis or edema and no pedal edema Psych: Mental Status: mental status grossly normal Affect: normal affect Attitude: cooperative Course Vital Signs Vital signs: Vital Signs Temperature 35.8 C L 07/13/25 08:24 Pulse Rate 74 07/13/25 08:24 Respiratory Rate 16 07/13/25 08:24 Blood Pressure 143/89 H 07/13/25 08:24 Pulse Oximetry 96 07/13/25 08:24 Oxygen Delivery Room Air 07/13/25 08:24 Temperature 35.8 C L 07/13/25 08:24 Pulse Rate 74 07/13/25 08:24 Respiratory Rate 16 07/13/25 08:24 Blood Pressure 143/89 H 07/13/25 08:24 Pulse Oximetry 96 07/13/25 08:24 Oxygen Delivery Room Air 07/13/25 08:24 MDM - Nausea/Vomiting/Diarrhea MDM Narrative Medical decision making narrative: Patient is a 24-year-old female with nausea vomiting and migraine headache. She also had some blood-streaked vomit. We will do workup at this time. We will treat migraine. Migraine has completely resolved. She was given triple treatment with IV fluids. No further blood in her vomit. Margaretmargarita worked on her vomit. She can follow this up as an outpatient. Lab Data Attestation: I reviewed the patient's lab results. 07/13/25 09:28 07/13/25 09:28 Labs: Lab Results 07/13/25 07/13/25 Range/Units 08:26 09:28 WBC 11.3 H (4.8-10.8) K/mm3 RBC 4.76 (4.20-5.40) M/mm3 Hgb 13.5 (12.0-15.0) g/dL Hct 40.3 (35.0-49.0) % MCV 84.7 (78.0-102.0) fL MCH 28.4 (27.0-31.0) pg MCHC 33.5 (32-36) g/dL RDW 11.9 (11.6-14.4) % Plt Count 227 (150-420) K/mm3 MPV 10.6 (9.2-11.8) fl Immature Gran % (Auto) 0.5 H (0.0-0.0) % Neut % (Auto) 82.6 H (50.0-70.0) % Lymph % (Auto) 10.1 L (18.0-42.0) % Hood % (Auto) 5.9 (2.0-11.0) % Eos % (Auto) 0.5 L (1.0-6.0) % Baso % (Auto) 0.4 (0.0-1.0) % Lymph # (Auto) 1.14 (1.10-4.50) K/mm3 Hood # (Auto) 0.67 (0.10-0.90) K/mm3 Eos # (Auto) 0.06 (0.02-0.50) K/mm3 Baso # (Auto) 0.04 (0.00-0.10) K/mm3 Abs Immat Gran (auto) 0.06 H (0.00-0.00) K/mm3 Absolute Neuts (auto) 9.32 H (1.70-7.20) K/mm3 Absolute Nucleated RBC 0.00 (0.00-0.00) K/mm3 Nucleated RBC % 0.0 (0-0.0) % PT 10.6 (9.50-12.1) Seconds INR 1.0 APTT 28.5 (23.9-30.70) Sec Sodium 141 (137-145) mmol/L Potassium 4.3 (3.4-5.0) mmol/L Chloride 111 H (98-107) mmol/L Carbon Dioxide 22 (22-30) mmol/L Anion Gap 8 (4-12) mmol/L BUN 9 (7-17) mg/dL Creatinine 0.63 L (0.7-1.0) mg/dL Estim Creat Clear Calc 121 ml/min Estimated GFR > 60 (59 - ) Glucose 100 (65-110) mg/dL Calculated Osmolality 290 (285-295) mOsm/kg Calcium 8.7 (8.4-10.2) mg/dL Total Bilirubin 0.7 (0.2-1.3) mg/dL AST 41 H (14-36) U/L ALT 55 H (6-35) U/L Alkaline Phosphatase 79 (38-126) U/L Total Protein 6.8 (6.3-8.2) g/dL Albumin 3.9 (3.5-5.1) g/dL Urine Color Yellow (Yellow) Urine Appearance Sl cloudy A (Clear) Urine pH 6.0 (5.0-8.0) Ur Specific Parrish 1.025 H (1.010-1.020) Urine Protein Negative (Negative) Urine Glucose (UA) Negative (Negative) Urine Ketones Negative (Negative) Ur Blood (Man) Negative (Negative) Urine Nitrate Negative (Negative) Urine Bilirubin Negative (Negative) Urine Urobilinogen 0.2 (0.2-1.0) mg/dL Leukocyte Esterase Rfl Trace H (Negative) INGRID/UL Urine RBC None seen (0-2) /hpf Urine WBC 0-3 (0-3) /hpf Ur Squamous Epith Cells Moderate H (Few) /hpf Amorphous Sediment Moderate H (None) Urine Bacteria 1+ H (None) /hpf Urine Test Negative Imaging Data Attestation: I personally reviewed and interpreted this imaging study as follows: Radiologist's impression: Chest x-rays negative for acute process Discharge Plan Discharge Clinical Impression: Cephalgia Qualifiers: Headache type: unspecified Headache chronicity pattern: unspecified pattern I ntractability: not intractable Qualified Code(s): R51.9 - Headache, unspecified Hematemesis Qualifiers: Nausea presence: with nausea Qualified Code(s): K92.0 - Hematemesis Patient Disposition: Home Condition: Stable Instructions: Acute Nausea and Vomiting (ED), Hematemesis (ED) Additional Instructions: Please follow-up with the primary doctor in the next week. I suggest a endless bed drum sander to be seen so they can put an upper endoscopy scope and look at the stomach visually. Come back to the ER with any recurrent significant bleeding in the vomit. Patient Language: Slovak Prescriptions: New ondansetron 4 mg tablet,disintegrating 4 mg PO Q8H PRN (Reason: nausea and vomiting) Qty: 20 0RF Follow-up/Referrals: UNKNOWN,DOCTOR [Primary Care Provider] Time of Disposition: 10:57
[2025-07-13] MEDS: ONDANSETRON HCL ODT 4 MG TABLET PO (08:33)
[2025-07-13 08:40] LABS: Add Urine Microscopic? YES; Appearance Urine Sl Cloudy (Clear); Glucose Urine UA Negative (Negative); Leukocyte Esterase Ur Trace LEU/UL (Negative); Nitrate Urine Negative (Negative); Specific Grav Ur 1.025 (1.010-1.020)
[2025-07-13 08:45] LABS: Pregnancy On Board Control Positive
[2025-07-13] MEDS: KETOROLAC 30 MG/ML VIAL (*BKC) IV PUSH (09:04)
[2025-07-13] MEDS: SODIUM CHLORIDE 0.9% IV 1,000 ML 999 ML IV CONT (09:04)
[2025-07-13] MEDS: METOCLOPRAMIDE HCL INJ 10 MG/2 ML VIAL IV PUSH (09:04)
--- OUTSIDE RECORDS SUMMARY | 2025-07-13 09:16 | XMS_ITS | Clinical Summary ---
Author Organization [facility] Address [address] [place] [address] Phone Care Team Providers Care Adult [employer] Name Role Phone Provider, None Primary Care Provider Sangeetha Serna MD Unavailable [phone] Allergies Active Allergy Reactions Criticality Noted [...] - 3-dose series) 2013 Pap Smear 2019 Influenza Immunization (#1) 2025 SARS-COV-2 Immunization ( - 2024- season) 2025 Respiratory Syncytial Virus (RSV) Immunization (Adult) [...] this topic Insurance MEDICAID [place] Care Teams Adult High [employer] Instructor Relationship Specialty Start Date End Date Provider, None [place] PCP - General 06/24/24 Sangeetha Purdy MD [address] [facility] [address] [place] [address] Consulting Physician Urology 06/24/24
[2025-07-13 09:33] LABS: Hematocrit 40.3 % (35.0-49.0); Hemoglobin 13.5 g/dL (12.0-15.0); Immature Granulocyte Percent A 0.5 % (0.0-0.0); Lymphocytes Absolute Auto 1.14 K/mm3 (1.10-4.50); Mean Corpuscular HGB Conc 33.5 g/dL (32-36); Mean Corpuscular Hemoglobin 28.4 pg (27.0-31.0); Mean Corpuscular Volume 84.7 fL (78.0-102.0); Nucleated Red Blood Cells Absolute Auto 0.00 K/mm3 (0.00-0.00); Nucleated Red Blood Cells Perc 0.0 % (0-0.0); Platelet Count Result 227 K/mm3 (150-420); Red Blood Count 4.76 M/mm3 (4.20-5.40); White Blood Count 11.3 K/mm3 (4.8-10.8)
[2025-07-13 09:48] LABS: Alanine Aminotransferase 55 U/L (6-35); Albumin Level 3.9 g/dL (3.5-5.1); Alkaline Phosphatase 79 U/L (38-126); Anion Gap 8 mmol/L (4-12); Aspartate Amino Transferase 41 U/L (14-36); Bilirubin,Total 0.7 mg/dL (0.2-1.3); Blood Urea Nitrogen 9 mg/dL (7-17); Calcium 8.7 mg/dL (8.4-10.2); Carbon Dioxide 22 mmol/L (22-30); Chloride 111 mmol/L (98-107); Estimated CRCL calculation 121 ml/min; Estimated Glomerular Filt Rate > 60; Glucose 100 mg/dL (65-110); INR 1.0; Osmolality Calculated 290 mOsm/kg (285-295); Partial Thromboplastin Time 28.5 Sec (23.9-30.70); Potassium 4.3 mmol/L (3.4-5.0); Prothrombin Time 10.6 Seconds (9.50-12.1); Sodium 141 mmol/L (137-145); Total Protein 6.8 g/dL (6.3-8.2)
[2025-07-13 10:10] VITALS: BP 100/52; PULSE 53; RESP 16; TEMP 36.1; O2SAT 97
== END 2025-07-13 11:07 | disposition home or self-care (01) ==
PROVIDERS: Emergency Provider Emergency Medicine; Referring Provider Internal Medicine
DX: K92.0 Hematemesis (principal); R51.9 Headache, unspecified; F17.210 Nicotine dependence, cigarettes, uncomplicated
CPT/HCPCS: 36415; 71045; 80053; 81001; 81025; 85025; 85610; 85730; 96361; 96374; 96375; 99284; A9270; J1200; J1885; J2765; J7030